=== PATIENT | male | born 1945 | race African-American/Black ===

== ENCOUNTER 2017-07-26 03:13 | Inpatient (IN) | payer MEDICAID, MEDICARE, OTHER ==
[~2017-07-26] VITALS: Ht 129.5 cm; Wt 64.9 kg
[2017-07-26 03:30] VITALS: BP 162/93
[2017-07-26] MEDS ORDERED: Thiamine HCl 100 MG in D5W 55 ML IVPB ONE (03:30)
[2017-07-26] MEDS ORDERED: Thiamine HCl 100mg/ml 2 ml Inj ONE (04:39)
[2017-07-26 04:42] LABS: BASOPHILS % (AUTO) 1.2 % (0.0-2.0); EOSINOPHILS % (AUTO) 2.6 % (0.0-3.0); HEMATOCRIT 43.9 % (42.0-52.0); HEMOGLOBIN 14.3 G/DL (14.2-18.0); MEAN CORPUSCULAR VOLUME 90 FL (80-99); NEUTROPHILS % (AUTO) 60.2 % (45.0-75.0); PLATELET COUNT 158 K/UL (150-450); RED BLOOD COUNT 4.87 M/UL (4.70-6.10); RED CELL DISTRIBUTION WIDTH 15.2 % (11.6-14.8); WHITE BLOOD COUNT 4.2 K/UL (4.8-10.8)
[2017-07-26 04:51] LABS: ANION GAP 14 mmol/L (5-15); BLOOD UREA NITROGEN 12 mg/dL (7-18); CALCIUM 9.2 MG/DL (8.5-10.1); CARBON DIOXIDE 22 MMOL/L (21-32); CHLORIDE 101 MMOL/L (98-107); CREATININE 0.8 MG/DL (0.55-1.30); POTASSIUM 3.6 MMOL/L (3.5-5.1); SODIUM 137 MMOL/L (136-145)
[2017-07-26 04:57] LABS: ALANINE AMINOTRANSFERASE 29 U/L (12-78); ALBUMIN 3.3 G/DL (3.4-5.0); ALBUMIN/GLOBULIN RATIO 0.6 (1.0-2.7); ALKALINE PHOSPHATASE 78 U/L (46-116); ASPARTATE AMINO TRANSFERASE 61 U/L (15-37); BILIRUBIN,TOTAL 0.6 MG/DL (0.2-1.0)
--- NOTE | 2017-07-26 05:54 | Emergency Room Report ---
History of Present Illness General Chief Complaint: Wound Recheck/Suture Removal Source: EMS Present Illness HPI Patient is a 72-year-old male who presented after increased pain to his buttock area. Patient gradual onset of symptoms. The patient reports having multiple he recent visit to the hospital. He states that he had been seen at [facility] yesterday. Patient denied any fever. He reports an increase pain to his left ischial area. The patient had prior history of decubitus ulcers. patient reports having some pain to the scrotal area. He denies any active bleeding. History is limited by patient's intoxication and poor cooperation Allergies: Coded Allergies: NO KNOWN DRUG ALLERGIES (Unverified Allergy, Unknown, 11/11/14) Patient History Past Medical History: see triage record Reviewed Nursing Documentation: PMH: Agreed, PSxH: Agreed Nursing Documentation-PMH Hx Hypertension: No Hx Pacemaker: No Hx Asthma: No Hx COPD: No Hx Diabetes: No Hx Cancer: No Hx Gastrointestinal Problems: No Hx Dialysis: No Hx Neurological Problems: No - inability of walking due to having no legs(pt didn't give information why) Hx Cerebrovascular Accident: No Hx Seizures: No Review of Systems All Other Systems: limited - by poor cooperation Physical Exam Vital Signs Date Time Temp Pulse Resp B/P (MAP) Pulse Ox O2 Delivery O2 Flow Rate FiO2 07/26/17 03:07 96.3 130 16 162/93 95 Room Air Sp02 EP Interpretation: reviewed, normal General Appearance: normal inspection, well appearing, no apparent distress, alert, non-toxic, Chronically Ill Head: atraumatic ENT: normal ENT inspection, hearing grossly normal, normal voice Neck: normal inspection, full range of motion, supple, no bony tend Respiratory: normal inspection, lungs clear, normal breath sounds, no respiratory distress, no retraction, no wheezing Cardiovascular #1: regular rate, rhythm, edema - scrotum Gastrointestinal: normal inspection, normal bowel sounds, non tender, soft, no guarding, no hernia Genitourinary: no CVA tenderness Musculoskeletal: normal inspection, back normal Neurologic: normal inspection, alert, responsive, 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 Sacral decubitus ulcer stage 11 without erythema or exudate Medical Decision Making Diagnostic Impression: Primary Impression: Scrotal edema Additional Impressions: Alcohol abuse Decubitus skin ulcer ER Course The patient presented for wound check. Have some evidence of scrotal edema. Differential diagnosis included was not limited to malnutrition, cirrhosis, renal failure among other. Because of complexity of patient's case laboratory testing and imaging studies were ordered. The patient was noted to have elevated blood alcohol level. He appears to be awake and alert. Patient was given thiamine IV. A scrotal edema appears to be related to chronic liver disease. Patient was noted to have a markedly edema. The patient is been having some difficulty taking care of his wounds due to bilateral amputations. Dr. Santi Barajas was contacted for inpatient management. The patient will likely need diuretics and urology consult Labs Test 07/26/17 04:27 White Blood Count 4.2 K/UL (4.8-10.8) Red Blood Count 4.87 M/UL (4.70-6.10) Hemoglobin 14.3 G/DL (14.2-18.0) Hematocrit 43.9 % (42.0-52.0) Mean Corpuscular Volume 90 FL (80-99) Mean Corpuscular Hemoglobin 29.3 PG (27.0-31.0) Mean Corpuscular Hemoglobin Concent 32.5 G/DL (32.0-36.0) Red Cell Distribution Width 15.2 % (11.6-14.8) Platelet Count 158 K/UL (150-450) Mean Platelet Volume 8.3 FL (6.5-10.1) Neutrophils (%) (Auto) 60.2 % (45.0-75.0) Lymphocytes (%) (Auto) 28.0 % (20.0-45.0) Monocytes (%) (Auto) 8.0 % (1.0-10.0) Eosinophils (%) (Auto) 2.6 % (0.0-3.0) Basophils (%) (Auto) 1.2 % (0.0-2.0) Sodium Level 137 MMOL/L (136-145) Potassium Level 3.6 MMOL/L (3.5-5.1) Chloride Level 101 MMOL/L (98-107) Carbon Dioxide Level 22 MMOL/L (21-32) Anion Gap 14 mmol/L (5-15) Blood Urea Nitrogen 12 mg/dL (7-18) Creatinine 0.8 MG/DL (0.55-1.30) Estimat Glomerular Filtration Rate > 60 mL/min (>60) Glucose Level 97 MG/DL (74-106) Calcium Level 9.2 MG/DL (8.5-10.1) Total Bilirubin 0.6 MG/DL (0.2-1.0) Aspartate Amino Transf (AST/SGOT) 61 U/L (15-37) Alanine Aminotransferase (ALT/SGPT) 29 U/L (12-78) Alkaline Phosphatase 78 U/L (46-116) Ammonia 30 umol/L (11-32) Total Protein 8.9 G/DL (6.4-8.2) Albumin 3.3 G/DL (3.4-5.0) Globulin 5.6 g/dL Albumin/Globulin Ratio 0.6 (1.0-2.7) Serum Alcohol 78 mg/dL Last Vital Signs Date Time Temp Pulse Resp B/P (MAP) Pulse Ox O2 Delivery O2 Flow Rate FiO2 07/26/17 03:30 96.3 130 16 162/93 95 Room Air Status: unchanged Disposition: ADMITTED INPATIENT Condition: Stable Referrals: NOT CHOSEN IPA/,REFERRING (PCP) Rupesh Taveras Jul 26, 2017 05:54
[2017-07-26] MEDS ORDERED: cefTRIAXone 1 GM in NS 55 ML IVPB ONE (06:45)
[2017-07-26] MEDS ORDERED: Morphine Sulfate 2mg/ml Inj IVP PRN (07:00)
[2017-07-26] MEDS ORDERED: Miralax 17gm pkt ORAL PRN (07:00)
[2017-07-26] MEDS ORDERED: Mylanta II UD 30ml ORAL PRN (07:00)
[2017-07-26] MEDS ORDERED: LORazepam Inj 2mg/ml 1ml IV PRN (07:00)
[2017-07-26 07:20] VITALS: BP 114/73
[2017-07-26 10:17] VITALS: BP 121/71
--- NOTE | 2017-07-26 10:37 | Consultation ---
History of Present Illness General Chief Complaint: Wound Recheck/Suture Removal Present Illness HPI 72-year-old male with hx of eoth abuse, wheel chair bound, decubiti ulcers, poor historian presented to ER with CC of increased pain to his buttock area wtih onset of symptoms. He reports an increase pain to his left ischial area. He reports having some pain to the scrotal area. Pt was found to be intoxicated with ETOH. He is admitted for ETOH intoxication and increasing weakness and worsening decubiti ulcers. Allergies: Coded Allergies: NO KNOWN DRUG ALLERGIES (Unverified Allergy, Unknown, 11/11/14) Medication History Scheduled Carvedilol (Coreg), 3.125 MG ORAL EVERY 12 HOURS Divalproex Sodium (Divalproex Sodium), 750 MG ORAL EVERY 12 HOURS Furosemide* (Lasix*), 40 MG ORAL DAILY Lisinopril (Lisinopril*), 5 MG ORAL DAILY Risperidone* (Risperdal*), 2 MG ORAL BID Risperidone* (Risperdal*), 3 MG ORAL BID Valproic Acid (Valproic Acid), 750 MG PO EVERY 12 HOURS Scheduled PRN Lorazepam* (Ativan*), 2 MG ORAL Q6H PRN Patient History Healthcare decision maker Resuscitation status Advanced Directive on File Past Medical/Surgical History Past Medical/Surgical History: (1) Decubitus ulcer of sacral region, stage 1 (2) Cardiomyopathy (3) Pain (4) S/P AKA (above knee amputation) bilateral Review of Systems All Other Systems: negative except mentioned in HPI Physical Exam General Appearance: WD/WN Lines, tubes and drains: peripheral HEENT: normocephalic, atraumatic Neck: non-tender, normal alignment Respiratory/Chest: chest wall non-tender, lungs clear Cardiovascular/Chest: normal peripheral pulses, normal rate Abdomen: normal bowel sounds, non tender Genitourinary/Rectal: normal genital exam, normal rectal exam Extremities: normal range of motion, non-tender Skin Exam: normal pigmentation Neurologic: other - above knee amputation Last 24 Hour Vital Signs Date Time Temp Pulse Resp B/P (MAP) Pulse Ox O2 Delivery O2 Flow Rate FiO2 07/26/17 10:18 97.9 110 16 121/71 96 Room Air 07/26/17 10:17 97.9 110 16 121/71 96 Room Air 07/26/17 09:05 98.0 2/2/18 07:20 98.0 98 16 114/73 96 Room Air 07/26/17 03:30 96.3 130 16 162/93 95 Room Air 07/26/17 03:07 96.3 130 16 162/93 95 Room Air Laboratory Tests Test 07/26/17 04:27 White Blood Count 4.2 K/UL (4.8-10.8) L Red Blood Count 4.87 M/UL (4.70-6.10) Hemoglobin 14.3 G/DL (14.2-18.0) Hematocrit 43.9 % (42.0-52.0) Mean Corpuscular Volume 90 FL (80-99) Mean Corpuscular Hemoglobin 29.3 PG (27.0-31.0) Mean Corpuscular Hemoglobin Concent 32.5 G/DL (32.0-36.0) Red Cell Distribution Width 15.2 % (11.6-14.8) H Platelet Count 158 K/UL (150-450) Mean Platelet Volume 8.3 FL (6.5-10.1) Neutrophils (%) (Auto) 60.2 % (45.0-75.0) Lymphocytes (%) (Auto) 28.0 % (20.0-45.0) Monocytes (%) (Auto) 8.0 % (1.0-10.0) Eosinophils (%) (Auto) 2.6 % (0.0-3.0) Basophils (%) (Auto) 1.2 % (0.0-2.0) Sodium Level 137 MMOL/L (136-145) Potassium Level 3.6 MMOL/L (3.5-5.1) Chloride Level 101 MMOL/L (98-107) Carbon Dioxide Level 22 MMOL/L (21-32) Anion Gap 14 mmol/L (5-15) Blood Urea Nitrogen 12 mg/dL (7-18) Creatinine 0.8 MG/DL (0.55-1.30) Estimat Glomerular Filtration Rate > 60 mL/min (>60) Glucose Level 97 MG/DL (74-106) Calcium Level 9.2 MG/DL (8.5-10.1) Total Bilirubin 0.6 MG/DL (0.2-1.0) Aspartate Amino Transf (AST/SGOT) 61 U/L (15-37) H Alanine Aminotransferase (ALT/SGPT) 29 U/L (12-78) Alkaline Phosphatase 78 U/L (46-116) Ammonia 30 umol/L (11-32) Total Protein 8.9 G/DL (6.4-8.2) H Albumin 3.3 G/DL (3.4-5.0) L Globulin 5.6 g/dL Albumin/Globulin Ratio 0.6 (1.0-2.7) L Serum Alcohol 78 mg/dL Height (Feet): 4 Height (Inches): 3.00 Weight (Pounds): 143 Medications Current Medications Medications (Trade) Dose Ordered Sig/Stevan Route PRN Reason Start Time Stop Time Status Last Admin Dose Admin Acetaminophen (Tylenol) 650 mg Q4H PRN ORAL fever 07/26/17 07:00 08/25/17 06:59 07/26/17 08:02 Al Hydroxide/Mg Hydroxide (Mylanta II) 30 ml Q6H PRN ORAL dyspepsia 07/26/17 07:00 08/25/17 06:59 Dextrose (Dextrose 50%) STAT PRN IV Hypoglycemia 07/26/17 07:00 08/25/17 06:59 Lorazepam (Ativan 2mg/ml 1ml) 0.5 mg Q4H PRN IV For Anxiety 07/26/17 07:00 08/02/17 06:59 Morphine Sulfate (Morphine Sulfate) 1 mg EVERY 4 HOURS PRN IVP For Pain 07/26/17 07:00 08/02/17 06:59 Ondansetron HCl (Zofran) 4 mg Q6H PRN IVP Nausea & Vomiting 07/26/17 07:00 08/25/17 06:59 Polyethylene Glycol (Miralax) 17 gm HSPRN PRN ORAL Constipation 07/26/17 07:00 08/25/17 06:59 Zolpidem Tartrate (Ambien) 5 mg HSPRN PRN ORAL Insomnia 07/26/17 07:00 08/02/17 06:59 Assessment/Plan Problem List: (1) Acute encephalopathy ICD Codes: G93.40 - Encephalopathy, unspecified SNOMED: 4481170 (2) Decubitus skin ulcer ICD Codes: L89.90 - Pressure ulcer of unspecified site, unspecified stage SNOMED: 127672389 (3) Alcohol abuse ICD Codes: F10.10 - Alcohol abuse, uncomplicated SNOMED: 82977363, 429793808, 582698763 (4) Scrotal edema ICD Codes: N50.89 - Other specified disorders of the male genital organs SNOMED: 35382094, 002148654, 041225130 Assessment/Plan neuro evaluatin check echo check liver function check ammonia GI evaluation RAJANI JACOBS Jul 26, 2017 10:37
[2017-07-26 12:15] VITALS: BP 100/58
[2017-07-26] MEDS ORDERED: Promethazine/Codeine 5ml UD ORAL PRN (12:45)
[2017-07-26 16:00] VITALS: BP 109/77
--- NOTE | 2017-07-26 19:14 | History & Physical ---
History and Physical History & Physicial Dictated for Int Med-Dr Barajas no. [id number] AVINASH ROMEO Jul 26, 2017 19:14
[2017-07-26 20:00] VITALS: BP 115/70
[2017-07-26] MEDS: Promethazine/DM 6.25mg/5ml ORAL PRN (20:38)
[2017-07-27] VITALS: BP 109/63
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
[2017-07-27] MEDS: Promethazine/DM 6.25mg/5ml ORAL PRN ×2 (03:50→10:21)
[2017-07-27 04:00] VITALS: BP 113/77
[2017-07-27 08:15] VITALS: BP 123/70
--- NOTE | 2017-07-27 08:50 | Pulmonology Progress Note ---
Assessment/Plan Assessment/Plan ASSESSMENT acute toxic metabolic encephalopathy ( probably due to bipolar disorder exacerbation and ETOH intoxication) bipolar disorder ETOH abuse scrotal edema due to right hydrocele cardiomyopathy SHF severe pulmonary HTN sacral decubitus ulcer PVD bilateral AKA obesity PLAN OF CARE MS floor Psych eval appreciated per psych conclusion patient lacks capacity to leave or refuse medications ECHO with EF 30-35% and RVSP of 60 Cardio eval for medical management of SHF check CXR and pro BNP Testicular US revealed right hydrocele, small bilateral varicoceles Urine tox screen positive for opiates serum alcohol -78 add Thiamine, Folic acid pain management wound nurse eval and wound care as per wound nurse eval DVT prophylaxis case discussed and evaluated by supervising physician Subjective Allergies: Coded Allergies: NO KNOWN DRUG ALLERGIES (Unverified Allergy, Unknown, 11/11/14) Subjective patient altered and unable to answer any questions behavior bizarre and inappropriate Objective Last 24 Hour Vital Signs Date Time Temp Pulse Resp B/P (MAP) Pulse Ox O2 Delivery O2 Flow Rate FiO2 07/27/17 08:15 97.9 103 18 123/70 97 Room Air 2.0 07/27/17 04:00 97.0 104 20 113/77 99 Room Air 07/27/17 00:00 96.1 100 20 109/63 92 Room Air 07/26/17 20:00 97.0 104 19 115/70 99 Room Air 07/26/17 16:00 98.3 114 20 109/77 99 07/26/17 12:15 98.4 112 21 100/58 97 Room Air 07/26/17 10:18 97.9 110 16 121/71 96 Room Air 07/26/17 10:17 97.9 110 16 121/71 96 Room Air 07/26/17 09:05 98.0 Intake and Output 07/26/17 07/27/17 19:00 07:00 Intake Total 295 ml Balance 295 ml Intake Oral 240 ml IV Total 55 ml # Voids 1 1 General Appearance: other - anxious, not able to answer questions, or provide inappropriate responses HEENT: normocephalic, atraumatic, anicteric Respiratory/Chest: lungs clear, no respiratory distress, no accessory muscle use Cardiovascular: normal rate Abdomen: normal bowel sounds, soft, non tender Extremities: other - bilateral AKA Neurologic/Psychiatric: abnormal gait, alert - confused Microbiology Date/Time Source Procedure Growth Status 07/26/17 12:00 Wound Gram Stain - Final Resulted 07/26/17 12:00 Wound Wound Culture Pending Resulted 07/26/17 12:00 Wound Gram Stain - Final Resulted 07/26/17 12:00 Wound Wound Culture Pending Resulted Current Medications Medications (Trade) Dose Ordered Sig/Stevan Route PRN Reason Start Time Stop Time Status Last Admin Dose Admin Acetaminophen (Tylenol) 650 mg Q4H PRN ORAL Mild Pain/Temp > 100.5 07/26/17 15:00 08/25/17 14:59 07/27/17 00:48 Al Hydroxide/Mg Hydroxide (Mylanta II) 30 ml Q6H PRN ORAL dyspepsia 07/26/17 07:00 08/25/17 06:59 Dextrose (Dextrose 50%) STAT PRN IV Hypoglycemia 07/26/17 07:00 08/25/17 06:59 Lorazepam (Ativan 2mg/ml 1ml) 0.5 mg Q4H PRN IV For Anxiety 07/26/17 07:00 08/02/17 06:59 Morphine Sulfate (Morphine Sulfate) 1 mg EVERY 4 HOURS PRN IVP For Pain 07/26/17 07:00 08/02/17 06:59 Ondansetron HCl (Zofran) 4 mg Q6H PRN IVP Nausea & Vomiting 07/26/17 07:00 08/25/17 06:59 Polyethylene Glycol (Miralax) 17 gm HSPRN PRN ORAL Constipation 07/26/17 07:00 08/25/17 06:59 Promethazine HCl/ Dextromethorphan (Phenergan DM) 6.25 mg Q6H PRN ORAL For Cough 07/26/17 19:30 08/25/17 19:29 07/27/17 03:50 Zolpidem Tartrate (Ambien) 5 mg HSPRN PRN ORAL Insomnia 07/26/17 07:00 08/02/17 06:59 Megan Delgado NP (Vanchtein) Jul 27, 2017 08:50
[2017-07-27] MEDS: Thiamine 100mg tab ORAL SCH (09:00)
--- NOTE | 2017-07-27 11:11 | Diagnostic Imaging Report ---
. Indication: Shortness of breath Technique: One view of the chest Comparison: none Findings: Heart is enlarged. There is a right-sided pleural effusion. There is bilateral interstitial and airspace edema. There is right apical pleural scarring Impression: Evidence of congestive heart failure, with cardiomegaly, bilateral interstitial and airspace edema, right-sided pleural effusion
[2017-07-27 12:00] VITALS: BP 142/71
--- NOTE | 2017-07-27 12:06 | Diagnostic Imaging Report ---
Indications: Pain and swelling Technique: Grayscale and duplex images of the scrotum Comparison: none Findings:The right testicle measures 3.3cm in length. It demonstrates normal echogenicity. Normal Doppler flow. Normal epididymis. There is a large hydrocele. There is a small varicocele The left testicle measures 3.2 cm in length. It demonstrates normal echogenicity and normal Doppler flow. Normal epididymis. There is a small varicocele Impression: Right hydrocele, small bilateral varicoceles No acute abnormality
[2017-07-27] MEDS ORDERED: Haloperidol Decanoate 50mg Inj IM ONE (14:00)
--- NOTE | 2017-07-27 14:49 | Internal Med Progress Note ---
Subjective Date of Service: Jul 27, 2017 Physician Name Avinash Romeo Attending Physician Santi Barajas MD Current Medications Medications (Trade) Dose Ordered Sig/Stevan Route PRN Reason Start Time Stop Time Status Last Admin Dose Admin Acetaminophen (Tylenol) 650 mg Q4H PRN ORAL Mild Pain/Temp > 100.5 07/26/17 15:00 08/25/17 14:59 07/27/17 00:48 Al Hydroxide/Mg Hydroxide (Mylanta II) 30 ml Q6H PRN ORAL dyspepsia 07/26/17 07:00 08/25/17 06:59 Dextrose (Dextrose 50%) STAT PRN IV Hypoglycemia 07/26/17 07:00 08/25/17 06:59 Folic Acid (Folate) 1 mg DAILY ORAL 07/27/17 09:00 08/26/17 08:59 Haloperidol Lactate (Haldol) 10 mg Q6H PRN IM Agitation 07/27/17 13:30 08/26/17 13:29 Lorazepam (Ativan 2mg/ml 1ml) 0.5 mg Q4H PRN IV For Anxiety 07/26/17 07:00 08/02/17 06:59 Morphine Sulfate (Morphine Sulfate) 1 mg EVERY 4 HOURS PRN IVP For Pain 07/26/17 07:00 08/02/17 06:59 Ondansetron HCl (Zofran) 4 mg Q6H PRN IVP Nausea & Vomiting 07/26/17 07:00 08/25/17 06:59 Polyethylene Glycol (Miralax) 17 gm HSPRN PRN ORAL Constipation 07/26/17 07:00 08/25/17 06:59 Promethazine HCl/ Dextromethorphan (Phenergan DM) 6.25 mg Q6H PRN ORAL For Cough 07/26/17 19:30 08/25/17 19:29 07/27/17 10:21 Thiamine HCl (Vitamin B1) 100 mg DAILY ORAL 07/27/17 09:00 08/26/17 08:59 Zolpidem Tartrate (Ambien) 5 mg HSPRN PRN ORAL Insomnia 07/26/17 07:00 08/02/17 06:59 Allergies: Coded Allergies: NO KNOWN DRUG ALLERGIES (Unverified Allergy, Unknown, 11/11/14) ROS Limited/Unobtainable: No Constitutional: Reports: no symptoms HEENT: Reports: no symptoms Cardiovascular: Reports: no symptoms Respiratory: Reports: no symptoms Gastrointestinal/Abdominal: Reports: no symptoms Genitourinary: Reports: no symptoms Neurologic/Psychiatric: Reports: no symptoms Subjective 72 YO M admitted with alcohol abuse and decubitus ulcer. Cover for Int Med-Dr Barajas. Agitated this am Objective Last Vital Signs Date Time Temp Pulse Resp B/P (MAP) Pulse Ox O2 Delivery O2 Flow Rate FiO2 07/27/17 12:00 98.6 93 17 142/71 96 Room Air 07/27/17 08:15 2.0 General Appearance: WD/WN, no apparent distress, alert EENT: PERRL/EOMI, normal ENT inspection Neck: non-tender, normal alignment, supple, normal inspection Cardiovascular: normal peripheral pulses, normal rate, regular rhythm, no gallop/murmur, no JVD Respiratory/Chest: chest wall non-tender, lungs clear, normal breath sounds, no respiratory distress, no accessory muscle use Abdomen: normal bowel sounds, non tender, soft, no organomegaly, no mass Genitourinary/Rectal: other - scrotal swelling right Extremities: normal range of motion 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, no motor/sensory deficits Skin: normal pigmentation, warm/dry Laboratory Tests Test 07/27/17 02:50 Urine Opiates Screen Positive (NEGATIVE) H Urine Barbiturates Screen Negative (NEGATIVE) Phencyclidine (PCP) Screen Negative (NEGATIVE) Urine Amphetamines Screen Negative (NEGATIVE) Urine Benzodiazepines Screen Negative (NEGATIVE) Urine Cocaine Screen Negative (NEGATIVE) Urine Marijuana (THC) Screen Negative (NEGATIVE) Microbiology Date/Time Source Procedure Growth Status 07/26/17 12:00 Wound Gram Stain - Final Resulted 07/26/17 12:00 Wound Culture - Preliminary Gram Negative Sreekanth Resulted 07/26/17 12:00 Wound Gram Stain - Final Resulted 07/26/17 12:00 Wound Wound Culture Pending Resulted 07/26/17 04:27 Nasal Nares MRSA Culture - Final NO METHICILLIN RESISTANT STAPH AUREUS... Complete 07/26/17 04:27 Rectum VRE Culture - Final Enterococcus Faecalis - Vre Complete Intake and Output 07/26/17 07/27/17 19:00 07:00 Intake Total 295 ml Balance 295 ml Intake Oral 240 ml IV Total 55 ml # Voids 1 1 Assessment/Plan Problem List: (1) Agitation Assessment & Plan: See psych note. (2) Right hydrocele Assessment & Plan: See scrotal ultrasound (3) Scrotal edema (4) Alcohol abuse Assessment & Plan: See psych eval (5) Decubitus skin ulcer Assessment & Plan: Wound care Status: progressing Assessment/Plan Discharge planning AVINASH ROMEO Jul 27, 2017 14:49
[2017-07-27] MEDS: Haloperidol 5mg/ml Inj IM PRN (15:42)
[2017-07-27 16:04] VITALS: BP 113/79
--- NOTE | 2017-07-27 19:51 | General Progress Note ---
Assessment/Plan Status: not improved, unchanged Assessment/Plan bipolar d/o lacks capacity to leave or refuse meds Subjective Date patient seen: Jul 27, 2017 Neurologic/Psychiatric: Reports: anxiety, depressed Allergies: Coded Allergies: NO KNOWN DRUG ALLERGIES (Unverified Allergy, Unknown, 11/11/14) Objective Last 24 Hour Vital Signs Date Time Temp Pulse Resp B/P (MAP) Pulse Ox O2 Delivery O2 Flow Rate FiO2 07/27/17 16:04 97.6 90 18 113/79 99 Room Air 07/27/17 12:00 98.6 93 17 142/71 96 Room Air 07/27/17 08:15 97.9 103 18 123/70 97 Room Air 2.0 07/27/17 04:00 97.0 104 20 113/77 99 Room Air 07/27/17 00:00 96.1 100 20 109/63 92 Room Air 07/26/17 20:00 97.0 104 19 115/70 99 Room Air Intake and Output 07/26/17 07/27/17 19:00 07:00 Intake Total 295 ml Balance 295 ml Intake Oral 240 ml IV Total 55 ml # Voids 1 1 Laboratory Tests 07/27/17 02:50: Urine Opiates Screen PositiveH, Urine Barbiturates Screen Negative, Phencyclidine (PCP) Screen Negative, Urine Amphetamines Screen Negative, Urine Benzodiazepines Screen Negative, Urine Cocaine Screen Negative, Urine Marijuana (THC) Screen Negative Height (Feet): 4 Height (Inches): 3.00 Weight (Pounds): 143 General Appearance: no apparent distress, alert, agitated, combative Evelia Vail M.D. Jul 27, 2017 19:50
[2017-07-27 20:00] VITALS: BP 120/84
[2017-07-28] VITALS: BP 121/79
[2017-07-28 04:00] VITALS: BP 113/62
[2017-07-28] MEDS: Zolpidem 5mg tab ORAL PRN ×2 (05:34→21:18)
[2017-07-28 08:15] VITALS: BP 118/70
[2017-07-28 08:24] LABS: HEMATOCRIT 36.9 % (42.0-52.0); HEMOGLOBIN 12.2 G/DL (14.2-18.0); MEAN CORPUSCULAR VOLUME 90 FL (80-99); PLATELET COUNT 126 K/UL (150-450); RED BLOOD COUNT 4.11 M/UL (4.70-6.10); RED CELL DISTRIBUTION WIDTH 15.7 % (11.6-14.8); WHITE BLOOD COUNT 3.3 K/UL (4.8-10.8)
[2017-07-28 08:32] LABS: ANION GAP 11 mmol/L (5-15); BLOOD UREA NITROGEN 10 mg/dL (7-18); CALCIUM 8.3 MG/DL (8.5-10.1); CARBON DIOXIDE 22 MMOL/L (21-32); CHLORIDE 106 MMOL/L (98-107); CREATININE 0.7 MG/DL (0.55-1.30); POTASSIUM 3.2 MMOL/L (3.5-5.1); SODIUM 139 MMOL/L (136-145)
[2017-07-28] MEDS ORDERED: Lisinopril 2.5mg tab ORAL SCH (09:00)
[2017-07-28] MEDS: Thiamine 100mg tab ORAL SCH (09:49)
[2017-07-28 12:15] VITALS: BP 130/73
--- NOTE | 2017-07-28 12:51 | Pulmonology Progress Note ---
Assessment/Plan Assessment/Plan ASSESSMENT acute toxic metabolic encephalopathy ( probably due to bipolar disorder exacerbation and ETOH intoxication) bipolar disorder ETOH abuse scrotal edema due to right hydrocele cardiomyopathy SHF severe pulmonary HTN sacral decubitus ulcer PVD bilateral AKA obesity PLAN OF CARE MS floor Psych eval appreciated per psych conclusion patient lacks capacity to leave or refuse medications ECHO with EF 30-35% and RVSP of 60 Cardio eval appreciated started on medical management of SHF with diuretic, BB and OLGA check CXR and pro BNP Testicular US revealed right hydrocele, small bilateral varicoceles Urine tox screen positive for opiates serum alcohol -78 added Thiamine, Folic acid pain management wound nurse eval and wound care as per wound nurse eval- patient declined DVT prophylaxis replace K case discussed and evaluated by supervising physician Subjective Allergies: Coded Allergies: NO KNOWN DRUG ALLERGIES (Unverified Allergy, Unknown, 11/11/14) Subjective behavior better controlled with optimized psyc medications regimen Objective Last 24 Hour Vital Signs Date Time Temp Pulse Resp B/P (MAP) Pulse Ox O2 Delivery O2 Flow Rate FiO2 07/28/17 12:15 97.6 108 20 130/73 99 Room Air 07/28/17 09:49 118/70 07/28/17 08:15 97.9 106 21 118/70 97 Room Air 07/28/17 04:00 97.1 111 20 113/62 94 07/28/17 00:00 97.6 89 21 121/79 98 07/27/17 20:00 97.8 108 21 120/84 94 07/27/17 16:04 97.6 90 18 113/79 99 Room Air Intake and Output 07/27/17 07/28/17 19:00 07:00 Intake Total 960 ml Output Total 800 ml Balance 160 ml Intake Oral 960 ml Output Urine Total 800 ml # Voids 3 2 # Bowel Movements 1 Objective General Appearance: more calm, not able to answer questions, or provide inappropriate responses HEENT: normocephalic, atraumatic, anicteric Respiratory/Chest: lungs clear, no respiratory distress, no accessory muscle use Cardiovascular: normal rate Abdomen: normal bowel sounds, soft, non tender Extremities: bilateral AKA Neurologic/Psychiatric: abnormal gait, alert - confused Microbiology Date/Time Source Procedure Growth Status 07/26/17 12:00 Wound Gram Stain - Final Resulted 07/26/17 12:00 Wound Culture - Preliminary Acinetobacter Baumannii Complx Gram Negative Bacillus 2 Diphtheroids Resulted 07/26/17 12:00 Wound Gram Stain - Final Resulted 07/26/17 12:00 Wound Culture - Preliminary Gram Negative Bacillus 1 Gram Positive Cocci Diphtheroids Resulted 07/26/17 04:27 Nasal Nares MRSA Culture - Final NO METHICILLIN RESISTANT STAPH AUREUS... Complete 07/26/17 04:27 Rectum VRE Culture - Final Enterococcus Faecalis - Vre Complete Laboratory Tests 07/28/17 06:21: White Blood Count 3.3L, Red Blood Count 4.11L, Hemoglobin 12.2L, Hematocrit 36.9L, Mean Corpuscular Volume 90, Mean Corpuscular Hemoglobin 29.6, Mean Corpuscular Hemoglobin Concent 32.9, Red Cell Distribution Width 15.7H, Platelet Count 126L, Mean Platelet Volume 8.0, Neutrophils (%) (Auto) , Lymphocytes (%) (Auto) , Monocytes (%) (Auto) , Eosinophils (%) (Auto) , Basophils (%) (Auto) , Differential Total Cells Counted 100, Neutrophils % ( Manual) 62, Lymphocytes % (Manual) 27, Monocytes % (Manual) 9, Eosinophils % ( Manual) 2, Basophils % (Manual) 0, Band Neutrophils 0, Platelet Estimate DecreasedL, Platelet Morphology Normal, Red Blood Cell Morphology Normal, Anisocytosis 1+, Sodium Level 139, Potassium Level 3.2L, Chloride Level 106, Carbon Dioxide Level 22, Anion Gap 11, Blood Urea Nitrogen 10, Creatinine 0.7, Estimat Glomerular Filtration Rate > 60, Glucose Level 94, Calcium Level 8.3L Current Medications Medications (Trade) Dose Ordered Sig/Stevan Route PRN Reason Start Time Stop Time Status Last Admin Dose Admin Acetaminophen (Tylenol) 650 mg Q4H PRN ORAL Mild Pain/Temp > 100.5 07/26/17 15:00 08/25/17 14:59 07/28/17 11:09 Al Hydroxide/Mg Hydroxide (Mylanta II) 30 ml Q6H PRN ORAL dyspepsia 07/26/17 07:00 08/25/17 06:59 Carvedilol (Coreg) 3.125 mg EVERY 12 HOURS ORAL 07/28/17 21:00 08/27/17 20:59 Dextrose (Dextrose 50%) STAT PRN IV Hypoglycemia 07/26/17 07:00 08/25/17 06:59 Folic Acid (Folate) 1 mg DAILY ORAL 07/27/17 09:00 08/26/17 08:59 07/28/17 09:49 Furosemide (Lasix) 40 mg DAILY IV 07/28/17 09:00 08/27/17 08:59 Haloperidol Lactate (Haldol) 10 mg Q6H PRN IM Agitation 07/27/17 13:30 08/26/17 13:29 07/27/17 15:42 Lisinopril (Zestril) 2.5 mg DAILY ORAL 07/28/17 09:00 08/27/17 08:59 07/28/17 09:49 Lorazepam (Ativan 2mg/ml 1ml) 0.5 mg Q4H PRN IV For Anxiety 07/26/17 07:00 08/02/17 06:59 Morphine Sulfate (Morphine Sulfate) 1 mg EVERY 4 HOURS PRN IVP For Pain 07/26/17 07:00 08/02/17 06:59 Ondansetron HCl (Zofran) 4 mg Q6H PRN IVP Nausea & Vomiting 07/26/17 07:00 08/25/17 06:59 Polyethylene Glycol (Miralax) 17 gm HSPRN PRN ORAL Constipation 07/26/17 07:00 08/25/17 06:59 Promethazine HCl/ Dextromethorphan (Phenergan DM) 6.25 mg Q6H PRN ORAL For Cough 07/26/17 19:30 08/25/17 19:29 07/27/17 10:21 Thiamine HCl (Vitamin B1) 100 mg DAILY ORAL 07/27/17 09:00 08/26/17 08:59 07/28/17 09:49 Zolpidem Tartrate (Ambien) 5 mg HSPRN PRN ORAL Insomnia 07/26/17 07:00 08/02/17 06:59 07/28/17 05:34 [facility] center[facility] Perry NP Jul 28, 2017 12:51
[2017-07-28] MEDS: Morphine Sulfate 4mg/ml Inj IVP PRN (14:44)
[2017-07-28 15:55] VITALS: BP 130/68
--- NOTE | 2017-07-28 15:55 | Internal Med Progress Note ---
Subjective Date of Service: Jul 28, 2017 Physician Name BarraganGordon alexander Attending Physician Santi Barajas MD Current Medications Medications (Trade) Dose Ordered Sig/Stevan Route PRN Reason Start Time Stop Time Status Last Admin Dose Admin Acetaminophen (Tylenol) 650 mg Q4H PRN ORAL Mild Pain/Temp > 100.5 07/26/17 15:00 08/25/17 14:59 07/28/17 11:09 Al Hydroxide/Mg Hydroxide (Mylanta II) 30 ml Q6H PRN ORAL dyspepsia 07/26/17 07:00 08/25/17 06:59 Carvedilol (Coreg) 3.125 mg EVERY 12 HOURS ORAL 07/28/17 21:00 08/27/17 20:59 Dextrose (Dextrose 50%) STAT PRN IV Hypoglycemia 07/26/17 07:00 08/25/17 06:59 Folic Acid (Folate) 1 mg DAILY ORAL 07/27/17 09:00 08/26/17 08:59 07/28/17 09:49 Furosemide (Lasix) 40 mg DAILY IV 07/28/17 09:00 08/27/17 08:59 Haloperidol Lactate (Haldol) 10 mg Q6H PRN IM Agitation 07/27/17 13:30 08/26/17 13:29 07/27/17 15:42 Lisinopril (Zestril) 2.5 mg DAILY ORAL 07/28/17 09:00 08/27/17 08:59 07/28/17 09:49 Lorazepam (Ativan 2mg/ml 1ml) 0.5 mg Q4H PRN IV For Anxiety 07/26/17 07:00 08/02/17 06:59 Morphine Sulfate (Morphine Sulfate) 1 mg Q4H PRN IVP For Pain 07/28/17 14:45 08/04/17 14:44 07/28/17 14:44 Ondansetron HCl (Zofran) 4 mg Q6H PRN IVP Nausea & Vomiting 07/26/17 07:00 08/25/17 06:59 Polyethylene Glycol (Miralax) 17 gm HSPRN PRN ORAL Constipation 07/26/17 07:00 08/25/17 06:59 Promethazine HCl/ Dextromethorphan (Phenergan DM) 6.25 mg Q6H PRN ORAL For Cough 07/26/17 19:30 08/25/17 19:29 07/27/17 10:21 Thiamine HCl (Vitamin B1) 100 mg DAILY ORAL 07/27/17 09:00 08/26/17 08:59 07/28/17 09:49 Zolpidem Tartrate (Ambien) 5 mg HSPRN PRN ORAL Insomnia 07/26/17 07:00 08/02/17 06:59 07/28/17 05:34 Allergies: Coded Allergies: NO KNOWN DRUG ALLERGIES (Unverified Allergy, Unknown, 11/11/14) ROS Limited/Unobtainable: No Constitutional: Reports: no symptoms HEENT: Reports: no symptoms Cardiovascular: Reports: no symptoms Respiratory: Reports: no symptoms Gastrointestinal/Abdominal: Reports: no symptoms Genitourinary: Reports: no symptoms Neurologic/Psychiatric: Reports: no symptoms Subjective 72 YO M admitted with alcohol abuse and decubitus ulcer. Cover for Int Med-Dr Barajas. Agitated this am Objective Last Vital Signs Date Time Temp Pulse Resp B/P (MAP) Pulse Ox O2 Delivery O2 Flow Rate FiO2 07/28/17 12:15 97.6 108 20 130/73 99 Room Air 07/27/17 08:15 2.0 Laboratory Tests Test 07/28/17 06:21 White Blood Count 3.3 K/UL (4.8-10.8) L Red Blood Count 4.11 M/UL (4.70-6.10) L Hemoglobin 12.2 G/DL (14.2-18.0) L Hematocrit 36.9 % (42.0-52.0) L Mean Corpuscular Volume 90 FL (80-99) Mean Corpuscular Hemoglobin 29.6 PG (27.0-31.0) Mean Corpuscular Hemoglobin Concent 32.9 G/DL (32.0-36.0) Red Cell Distribution Width 15.7 % (11.6-14.8) H Platelet Count 126 K/UL (150-450) L Mean Platelet Volume 8.0 FL (6.5-10.1) Neutrophils (%) (Auto) % (45.0-75.0) Lymphocytes (%) (Auto) % (20.0-45.0) Monocytes (%) (Auto) % (1.0-10.0) Eosinophils (%) (Auto) % (0.0-3.0) Basophils (%) (Auto) % (0.0-2.0) Differential Total Cells Counted 100 Neutrophils % (Manual) 62 % (45-75) Lymphocytes % (Manual) 27 % (20-45) Monocytes % (Manual) 9 % (1-10) Eosinophils % (Manual) 2 % (0-3) Basophils % (Manual) 0 % (0-2) Band Neutrophils 0 % (0-8) Platelet Estimate Decreased L Platelet Morphology Normal Red Blood Cell Morphology Normal Anisocytosis 1+ Sodium Level 139 MMOL/L (136-145) Potassium Level 3.2 MMOL/L (3.5-5.1) L Chloride Level 106 MMOL/L (98-107) Carbon Dioxide Level 22 MMOL/L (21-32) Anion Gap 11 mmol/L (5-15) Blood Urea Nitrogen 10 mg/dL (7-18) Creatinine 0.7 MG/DL (0.55-1.30) Estimat Glomerular Filtration Rate > 60 mL/min (>60) Glucose Level 94 MG/DL (74-106) Calcium Level 8.3 MG/DL (8.5-10.1) L Microbiology Date/Time Source Procedure Growth Status 07/26/17 12:00 Wound Gram Stain - Final Resulted 07/26/17 12:00 Wound Culture - Preliminary Acinetobacter Baumannii Complx Gram Negative Bacillus 2 Diphtheroids Resulted 07/26/17 12:00 Wound Gram Stain - Final Resulted 07/26/17 12:00 Wound Culture - Preliminary Gram Negative Bacillus 1 Gram Positive Cocci Diphtheroids Resulted 07/26/17 04:27 Nasal Nares MRSA Culture - Final NO METHICILLIN RESISTANT STAPH AUREUS... Complete 07/26/17 04:27 Rectum VRE Culture - Final Enterococcus Faecalis - Vre Complete Intake and Output 07/27/17 07/28/17 19:00 07:00 Intake Total 960 ml Output Total 800 ml Balance 160 ml Intake Oral 960 ml Output Urine Total 800 ml # Voids 3 2 # Bowel Movements 1 Objective General Appearance: WD/WN, no apparent distress, alert EENT: PERRL/EOMI, normal ENT inspection Neck: non-tender, normal alignment, supple, normal inspection Cardiovascular: normal peripheral pulses, normal rate, regular rhythm, no gallop/murmur, no JVD Respiratory/Chest: chest wall non-tender, lungs clear, normal breath sounds, no respiratory distress, no accessory muscle use Abdomen: normal bowel sounds, non tender, soft, no organomegaly, no mass Genitourinary/Rectal: other - scrotal swelling right Extremities: Bilat above the knee amputation; normal range of motion Neurologic: extrusion manager 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 (2) Right hydrocele Assessment & Plan: See scrotal ultrasound (3) Scrotal edema (4) Alcohol abuse Assessment & Plan: See psych eval (5) Decubitus skin ulcer Assessment & Plan: Wound care (6) S/P AKA (above knee amputation) bilateral Assessment/Plan Discharge planning GORDON BARRAGAN Jul 28, 2017 15:55
--- NOTE | 2017-07-28 18:56 | Consultation ---
Consult Note Consult Note Cardiology for Dr. Moya Full consult dictated. TIM TATE Jul 28, 2017 18:56
--- NOTE | 2017-07-28 19:03 | Cardiology Progress Note ---
Assessment/Plan Problem List: (1) Scrotal edema (2) Alcohol abuse (3) Cardiomyopathy (4) S/P AKA (above knee amputation) bilateral Status Narrative Mr Crespo is sedated. Psych evaluation noted. Pt felt not to have capacity for decision-making. He has cardiomyopathy, w/ EF appx 30% and global hypokinesis. ? alcoholic cm and was in CHF on adm Assessment/Plan Will continue to titrate meds - coreg, lisinopril, and continue iv lasix. Supplement K and repeat labs in am Further evaluation for ? ischemic vs nonischemic cm will be considered when pt more stable. Subjective ROS Limited/Unobtainable: Yes Subjective Cardiology for Dr. Moya Events noted. Pt now sedated. Objective Last 24 Hour Vital Signs Date Time Temp Pulse Resp B/P (MAP) Pulse Ox O2 Delivery O2 Flow Rate FiO2 07/28/17 15:55 97.7 106 19 130/68 97 Room Air 07/28/17 12:15 97.6 108 20 130/73 99 Room Air 07/28/17 09:49 118/70 07/28/17 08:15 97.9 106 21 118/70 97 Room Air 07/28/17 04:00 97.1 111 20 113/62 94 07/28/17 00:00 97.6 89 21 121/79 98 07/27/17 20:00 97.8 108 21 120/84 94 General Appearance: no apparent distress, lethargic EENT: PERRL/EOMI Neck: no JVD Rhythm: NSR Cardiovascular: regular rhythm, tachycardia, gallop/S3 Respiratory/Chest: lungs clear Abdomen: non tender, soft Extremities: other - bilat AKA. Intake and Output 07/27/17 07/28/17 19:00 07:00 Intake Total 960 ml Output Total 800 ml Balance 160 ml Intake Oral 960 ml Output Urine Total 800 ml # Voids 3 2 # Bowel Movements 1 Laboratory Tests Test 07/28/17 06:21 White Blood Count 3.3 K/UL (4.8-10.8) L Red Blood Count 4.11 M/UL (4.70-6.10) L Hemoglobin 12.2 G/DL (14.2-18.0) L Hematocrit 36.9 % (42.0-52.0) L Mean Corpuscular Volume 90 FL (80-99) Mean Corpuscular Hemoglobin 29.6 PG (27.0-31.0) Mean Corpuscular Hemoglobin Concent 32.9 G/DL (32.0-36.0) Red Cell Distribution Width 15.7 % (11.6-14.8) H Platelet Count 126 K/UL (150-450) L Mean Platelet Volume 8.0 FL (6.5-10.1) Neutrophils (%) (Auto) % (45.0-75.0) Lymphocytes (%) (Auto) % (20.0-45.0) Monocytes (%) (Auto) % (1.0-10.0) Eosinophils (%) (Auto) % (0.0-3.0) Basophils (%) (Auto) % (0.0-2.0) Differential Total Cells Counted 100 Neutrophils % (Manual) 62 % (45-75) Lymphocytes % (Manual) 27 % (20-45) Monocytes % (Manual) 9 % (1-10) Eosinophils % (Manual) 2 % (0-3) Basophils % (Manual) 0 % (0-2) Band Neutrophils 0 % (0-8) Platelet Estimate Decreased L Platelet Morphology Normal Red Blood Cell Morphology Normal Anisocytosis 1+ Sodium Level 139 MMOL/L (136-145) Potassium Level 3.2 MMOL/L (3.5-5.1) L Chloride Level 106 MMOL/L (98-107) Carbon Dioxide Level 22 MMOL/L (21-32) Anion Gap 11 mmol/L (5-15) Blood Urea Nitrogen 10 mg/dL (7-18) Creatinine 0.7 MG/DL (0.55-1.30) Estimat Glomerular Filtration Rate > 60 mL/min (>60) Glucose Level 94 MG/DL (74-106) Calcium Level 8.3 MG/DL (8.5-10.1) L Microbiology Date/Time Source Procedure Growth Status 07/26/17 12:00 Wound Gram Stain - Final Resulted 07/26/17 12:00 Wound Culture - Preliminary Acinetobacter Baumannii Complx Gram Negative Bacillus 2 Diphtheroids Resulted 07/26/17 12:00 Wound Gram Stain - Final Resulted 07/26/17 12:00 Wound Culture - Preliminary Gram Negative Bacillus 1 Gram Positive Cocci Diphtheroids Resulted 07/26/17 04:27 Nasal Nares MRSA Culture - Final NO METHICILLIN RESISTANT STAPH AUREUS... Complete 07/26/17 04:27 Rectum VRE Culture - Final Enterococcus Faecalis - Vre Complete TIM TATE Jul 28, 2017 19:03
[2017-07-28 20:00] VITALS: BP 119/74
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
[2017-07-29] VITALS: BP 124/83
[2017-07-29] MEDS: Haloperidol 5mg/ml Inj IM PRN (00:45)
[2017-07-29 04:00] VITALS: BP 99/60
[2017-07-29 08:00] VITALS: BP_SYST 111; BP_SYST 127; BP_DIAS 67; BP_DIAS 77
--- NOTE | 2017-07-29 08:31 | Wound Care Consultation ---
Wound Assessment Wound Assessment #1: Wound Number: 1 Wound Present on Admission: Yes New Wound: No Status Change of Wound: No Wound Location Body Site Modif: mid Wound Location Body Site: other - sacrococcygeal Wound Type: pressure ulcer Rylan Test: Does not Rylan Pressure Ulcer Stage: III Wound Thickness: Full Thickness Wound Length: 6.5 Wound Width: 5.0 Wound Depth: 0.2 Percent of Wound [place]/Red: 90 Percent of Wound Bed Yellow/Wh: 10 Wound Drainage Description: Serosanguineous Wound Drainage Amount: Moderate Wound Drainage Odor: None/Absent Tissue Surrounding Wound: Macerated Wound General Appearance: Reddened, Draining Wound Assessment #2: Wound Number: 2 Wound Present on Admission: Yes New Wound: No Status Change of Wound: No Wound Location Body Site Modif: right Wound Location Body Site: ischial tuberosity Wound Type: scar Rylan Test: Does not Rylan Wound Thickness: Full Thickness Wound Length: 2.5 Wound Width: 3.5 Percent of Wound [place]/Red: 100 Wound Drainage Amount: None Wound Drainage Odor: None/Absent Tissue Surrounding Wound: Intact Wound General Appearance: Reddened Wound Assessment #3: Wound Number: 3 Wound Present on Admission: Yes New Wound: No Status Change of Wound: No Wound Location Body Site Modif: left Wound Location Body Site: ischial tuberosity Wound Type: pressure ulcer Rylan Test: Does not Rylan Pressure Ulcer Stage: Unstageable Wound Thickness: Full Thickness Wound Length: 1.5 Wound Width: 1.5 Wound Depth: utd Percent of Wound Bed Yellow/Wh: 100 Wound Drainage Amount: None Wound Drainage Odor: None/Absent Tissue Surrounding Wound: full thickness scar tissue Wound General Appearance: Asymptomatic Wound Assessment #4: Wound Number: 4 Wound Present on Admission: Yes New Wound: No Status Change of Wound: No Wound Location Body Site: perineal area Wound Type: erosion - full thickness Rylan Test: Does not Rylan Wound Thickness: Full Thickness Wound Length: 2.0 Wound Width: 1.5 Wound Depth: 0.1 Percent of Wound [place]/Red: 100 Wound Drainage Amount: None Wound Drainage Odor: None/Absent Tissue Surrounding Wound: Intact Wound General Appearance: Reddened Wound Comment #1 Sacrococcygeal stage III pressure ulcer extending to left and right buttocks #2 Right ischial tuberosity full thickness scar tissue #3 Left unstageable dry yellow scab with surrounding full thickness tissue #4 Perineal area scrotum full thickness erosion Recommendation -Local wound care per protocol -Keep clean and dry -Turn and reposition -Optimize nutrition -Offload both heels -Heel protector on both heels -Low air loss mattress -Assess and f/u accordingly for any changes TICO GO RN Jul 29, 2017 08:30
[2017-07-29] MEDS: Lisinopril 2.5mg tab ORAL SCH (09:28)
[2017-07-29] MEDS: Thiamine 100mg tab ORAL SCH (09:29)
--- NOTE | 2017-07-29 10:05 | Diagnostic Imaging Report ---
Indication: Shortness of breath Technique: One view of the chest Comparison: 07/27/2017 Findings: Bilateral interstitial and airspace edema persists, unchanged. Right pleural effusion persists, unchanged. The heart size is normal. Impression: Unchanged, over 2 days, findings as above.
--- NOTE | 2017-07-29 10:58 | Cardiology Report ---
APPROVED REPORT EXAM: Two-dimensional and M-mode echocardiogram with Doppler and color Doppler. INDICATION Left Ventricular Function M-Mode DIMENSIONS IVSd1.0 (0.7-1.1cm)Left Atrium (MM)4.1 (1.6-4.0cm) LVDd6.0 (3.5-5.6cm)Aortic Root3.5 (2.0-3.7cm) PWd0.9 (0.7-1.1cm)Aortic Cusp Exc.2.3 (1.5-2.0cm) LVDs4.7 (2.5-4.0cm) PWs1.7 cm Mild left ventricular enlargement. Global left ventricular hypokinesis. Left ventricular ejection fraction estimated to be 30-35 %. No evidence of left ventricular hypertrophy. No evidence of pericardial effusion. Mild bi-atrial enlargement. Right ventricular chamber sizes is within normal limits. Mild focal aortic valve sclerosis with adequate cusp excursion. Heavy thickened mitral valve leaflets with normal excursion. Heavy mitral annulus and aortic root calcification. Normal pulmonic valve structure. Normal tricuspid valve structure. IVC dilated at 2.6 cm without physiologic collapse, estimated RAP is 15 mmHg. A color flow and spectral Doppler study was performed and revealed: No aortic regurgitation. Mild mitral regurgitation. Left ventricular diastolic function could not be determined due to A-Fib. Moderate tricuspid regurgitation. Tricuspid systolic velocities suggests peak right ventricular systolic pressure of 60 mmHg, consistent with severe pulmonary hypertension. Mild pulmonic regurgitation present.
--- NOTE | 2017-07-29 11:06 | Internal Med Progress Note ---
Subjective Date of Service: Jul 29, 2017 Physician Name Romeo,Avinash Attending Physician Santi Barajas MD Current Medications Medications (Trade) Dose Ordered Sig/Stevan Route PRN Reason Start Time Stop Time Status Last Admin Dose Admin Acetaminophen (Tylenol) 650 mg Q4H PRN ORAL Mild Pain/Temp > 100.5 07/26/17 15:00 08/25/17 14:59 07/29/17 06:37 Al Hydroxide/Mg Hydroxide (Mylanta II) 30 ml Q6H PRN ORAL dyspepsia 07/26/17 07:00 08/25/17 06:59 Carvedilol (Coreg) 3.125 mg EVERY 12 HOURS ORAL 07/28/17 21:00 08/27/17 20:59 07/29/17 09:29 Dextrose (Dextrose 50%) STAT PRN IV Hypoglycemia 07/26/17 07:00 08/25/17 06:59 Folic Acid (Folate) 1 mg DAILY ORAL 07/27/17 09:00 08/26/17 08:59 07/29/17 09:29 Furosemide (Lasix) 40 mg DAILY IV 07/28/17 09:00 08/27/17 08:59 Haloperidol Lactate (Haldol) 10 mg Q6H PRN IM Agitation 07/27/17 13:30 08/26/17 13:29 07/29/17 00:45 Lisinopril (Zestril) 5 mg DAILY ORAL 07/29/17 09:00 08/28/17 08:59 07/29/17 09:28 Lorazepam (Ativan 2mg/ml 1ml) 0.5 mg Q4H PRN IV For Anxiety 07/26/17 07:00 08/02/17 06:59 Morphine Sulfate (Morphine Sulfate) 1 mg Q4H PRN IVP For Pain 07/28/17 14:45 08/04/17 14:44 07/28/17 14:44 Ondansetron HCl (Zofran) 4 mg Q6H PRN IVP Nausea & Vomiting 07/26/17 07:00 08/25/17 06:59 Polyethylene Glycol (Miralax) 17 gm HSPRN PRN ORAL Constipation 07/26/17 07:00 08/25/17 06:59 Promethazine HCl/ Dextromethorphan (Phenergan DM) 6.25 mg Q6H PRN ORAL For Cough 07/26/17 19:30 08/25/17 19:29 07/27/17 10:21 Thiamine HCl (Vitamin B1) 100 mg DAILY ORAL 07/27/17 09:00 08/26/17 08:59 07/29/17 09:29 Zolpidem Tartrate (Ambien) 5 mg HSPRN PRN ORAL Insomnia 07/26/17 07:00 08/02/17 06:59 07/28/17 21:18 Allergies: Coded Allergies: NO KNOWN DRUG ALLERGIES (Unverified Allergy, Unknown, 11/11/14) ROS Limited/Unobtainable: No Constitutional: Reports: no symptoms HEENT: Reports: no symptoms Cardiovascular: Reports: no symptoms Respiratory: Reports: no symptoms Gastrointestinal/Abdominal: Reports: no symptoms Genitourinary: Reports: no symptoms Neurologic/Psychiatric: Reports: no symptoms Subjective 72 YO M admitted with alcohol abuse and decubitus ulcer. Cover for Int Med-Dr Barajas. Less Agitated this am Objective Last Vital Signs Date Time Temp Pulse Resp B/P (MAP) Pulse Ox O2 Delivery O2 Flow Rate FiO2 07/29/17 09:29 96 111/77 07/29/17 08:00 97.1 20 95 07/28/17 15:55 Room Air 07/27/17 08:15 2.0 Microbiology Date/Time Source Procedure Growth Status 07/26/17 12:00 Wound Gram Stain - Final Resulted 07/26/17 12:00 Wound Culture - Preliminary Acinetobacter Baumannii Complx Citrobacter Freundii Diphtheroids Resulted 07/26/17 12:00 Wound Gram Stain - Final Resulted 07/26/17 12:00 Wound Culture - Preliminary Klebsiella Pneumoniae Staphylococcus Simulans Diphtheroids Resulted Intake and Output 07/28/17 07/29/17 19:00 07:00 Intake Total 960 ml Output Total 1000 ml 950 ml Balance -40 ml -950 ml Intake Oral 960 ml Output Urine Total 1000 ml 950 ml # Voids 3 # Bowel Movements 2 3 Objective General Appearance: WD/WN, no apparent distress, alert EENT: PERRL/EOMI, normal ENT inspection Neck: non-tender, normal alignment, supple, normal inspection Cardiovascular: normal peripheral pulses, normal rate, regular rhythm, no gallop/murmur, no JVD Respiratory/Chest: chest wall non-tender, lungs clear, normal breath sounds, no respiratory distress, no accessory muscle use Abdomen: normal bowel sounds, non tender, soft, no organomegaly, no mass Genitourinary/Rectal: other - scrotal swelling right Extremities: Bilat above the knee amputation; normal range of motion Neurologic: shipping support 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 (2) Right hydrocele Assessment & Plan: See scrotal ultrasound (3) Scrotal edema Assessment & Plan: Right Hydroco[place]. Await urology consult. (4) Alcohol abuse Assessment & Plan: See psych eval (5) Decubitus skin ulcer Assessment & Plan: Wound care (6) S/P AKA (above knee amputation) bilateral Assessment/Plan Discharge planning: SNF vs board and care AVINASH ROMEO Jul 29, 2017 11:06
[2017-07-29 12:00] VITALS: BP 108/70
--- NOTE | 2017-07-29 14:42 | General Progress Note ---
Assessment/Plan Status: stable, progressing Assessment/Plan bipolar d/o lacks capacity to leave or refuse meds risperdal depakote Subjective Date patient seen: Jul 29, 2017 Neurologic/Psychiatric: Reports: anxiety, depressed, emotional problems Allergies: Coded Allergies: NO KNOWN DRUG ALLERGIES (Unverified Allergy, Unknown, 11/11/14) Objective Last 24 Hour Vital Signs Date Time Temp Pulse Resp B/P (MAP) Pulse Ox O2 Delivery O2 Flow Rate FiO2 07/29/17 13:35 97.1 07/29/17 12:00 96.7 97 20 108/70 92 07/29/17 09:29 96 111/77 07/29/17 09:28 111/77 07/29/17 08:00 97.1 96 20 111/77 95 07/29/17 04:00 97.6 106 21 99/60 94 07/29/17 00:00 97.0 104 21 124/83 98 07/28/17 21:18 104 119/74 07/28/17 20:00 97.0 104 22 119/74 98 07/28/17 15:55 97.7 106 19 130/68 97 Room Air Intake and Output 07/28/17 07/29/17 19:00 07:00 Intake Total 960 ml Output Total 1000 ml 950 ml Balance -40 ml -950 ml Intake Oral 960 ml Output Urine Total 1000 ml 950 ml # Voids 3 # Bowel Movements 2 3 Height (Feet): 4 Height (Inches): 3.00 Weight (Pounds): 143 General Appearance: no apparent distress, alert, agitated 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, oriented x 3 Evelia Vail M.D. Jul 29, 2017 14:42
[2017-07-29] MEDS ORDERED: LORazepam Inj 2mg/ml 1ml IV ONE (15:30)
[2017-07-29] MEDS ORDERED: DiphenhydrAMINE 50mg/ml Inj IM ONE (15:30)
[2017-07-29] MEDS ORDERED: Haloperidol 5mg/ml Inj IM ONE (15:30)
[2017-07-29 16:00] VITALS: BP 111/72
[2017-07-29] MEDS ORDERED: LORazepam Inj 2mg/ml 1ml IM ONE (16:05)
--- NOTE | 2017-07-29 16:09 | Pulmonology Progress Note ---
Assessment/Plan Problems: (1) Acute encephalopathy (2) Decubitus skin ulcer (3) Alcohol abuse (4) Scrotal edema (5) Cardiomyopathy (6) S/P AKA (above knee amputation) bilateral Assessment/Plan pt adamant about going home no new complains on diuretics check electrolytes Subjective ROS Limited/Unobtainable: No Constitutional: Reports: no symptoms HEENT: Repors: no symptoms Respiratory: Reports: no symptoms Allergies: Coded Allergies: NO KNOWN DRUG ALLERGIES (Unverified Allergy, Unknown, 11/11/14) Objective Last 24 Hour Vital Signs Date Time Temp Pulse Resp B/P (MAP) Pulse Ox O2 Delivery O2 Flow Rate FiO2 07/29/17 16:00 95.0 90 20 111/72 98 07/29/17 13:35 97.1 07/29/17 12:00 96.7 97 20 108/70 92 07/29/17 09:29 96 111/77 07/29/17 09:28 111/77 07/29/17 08:00 97.1 96 20 111/77 95 07/29/17 04:00 97.6 106 21 99/60 94 07/29/17 00:00 97.0 104 21 124/83 98 07/28/17 21:18 104 119/74 07/28/17 20:00 97.0 104 22 119/74 98 Intake and Output 07/28/17 07/29/17 19:00 07:00 Intake Total 960 ml Output Total 1000 ml 950 ml Balance -40 ml -950 ml Intake Oral 960 ml Output Urine Total 1000 ml 950 ml # Voids 3 # Bowel Movements 2 3 Objective General Appearance: no apparent distress, alert, poor eye contact HEENT: normocephalic, atraumatic, anicteric, mucous membranes moist Neck: non-tender, normal alignment, supple Respiratory/Chest: lungs clear, no respiratory distress, no accessory muscle use Cardiovascular/Chest: normal peripheral pulses, normal rate, no JVD Abdomen: normal bowel sounds, non tender, soft Extremities: aka, 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, 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, 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 Current Medications Medications (Trade) Dose Ordered Sig/Stevan Route PRN Reason Start Time Stop Time Status Last Admin Dose Admin Acetaminophen (Tylenol) 650 mg Q4H PRN ORAL Mild Pain/Temp > 100.5 07/26/17 15:00 08/25/17 14:59 07/29/17 12:39 Al Hydroxide/Mg Hydroxide (Mylanta II) 30 ml Q6H PRN ORAL dyspepsia 07/26/17 07:00 08/25/17 06:59 Carvedilol (Coreg) 3.125 mg EVERY 12 HOURS ORAL 07/28/17 21:00 08/27/17 20:59 07/29/17 09:29 Dextrose (Dextrose 50%) STAT PRN IV Hypoglycemia 07/26/17 07:00 08/25/17 06:59 Divalproex Sodium (Depakote) 500 mg EVERY 12 HOURS ORAL 07/29/17 21:00 08/28/17 20:59 Folic Acid (Folate) 1 mg DAILY ORAL 07/27/17 09:00 08/26/17 08:59 07/29/17 09:29 Furosemide (Lasix) 40 mg DAILY IV 07/28/17 09:00 08/27/17 08:59 Haloperidol Lactate (Haldol) 10 mg Q6H PRN IM Agitation 07/27/17 13:30 08/26/17 13:29 07/29/17 00:45 Lisinopril (Zestril) 5 mg DAILY ORAL 07/29/17 09:00 08/28/17 08:59 07/29/17 09:28 Lorazepam (Ativan 2mg/ml 1ml) 0.5 mg Q4H PRN IV For Anxiety 07/26/17 07:00 08/02/17 06:59 Lorazepam (Ativan 2mg/ml 1ml) 2 mg ONCE ONCE IM 07/29/17 16:05 07/29/17 16:06 Morphine Sulfate (Morphine Sulfate) 1 mg Q4H PRN IVP For Pain 07/28/17 14:45 08/04/17 14:44 07/28/17 14:44 Ondansetron HCl (Zofran) 4 mg Q6H PRN IVP Nausea & Vomiting 07/26/17 07:00 08/25/17 06:59 Polyethylene Glycol (Miralax) 17 gm HSPRN PRN ORAL Constipation 07/26/17 07:00 08/25/17 06:59 Promethazine HCl/ Dextromethorphan (Phenergan DM) 6.25 mg Q6H PRN ORAL For Cough 07/26/17 19:30 08/25/17 19:29 07/27/17 10:21 Risperidone (RisperDAL) 1 mg BID ORAL 07/29/17 18:00 08/28/17 17:59 Thiamine HCl (Vitamin B1) 100 mg DAILY ORAL 07/27/17 09:00 08/26/17 08:59 07/29/17 09:29 Zolpidem Tartrate (Ambien) 5 mg HSPRN PRN ORAL Insomnia 07/26/17 07:00 08/02/17 06:59 07/28/17 21:18 RAJANI JACOBS Jul 29, 2017 16:09
--- NOTE | 2017-07-29 18:23 | Cardiology Report ---
APPROVED REPORT EKG Measurement Heart [id number] Sinus tachycardia Nonspecific T wave abnormality Abnormal ECG
[2017-07-29 19:46] VITALS: BP 107/62
[2017-07-29] MEDS: Depakote 500mg tab ORAL SCH (22:29)
--- NOTE | 2017-07-29 22:45 | Progress Note ---
DATE: 07/28/2017 SUBJECTIVE: The patient continues to be agitated and tends to be belligerent and is uncooperative with the staff. Needs frequent redirection throughout the day and at times he is noncompliant with medications. MENTAL STATUS EXAMINATION: The patient is alert, oriented times self, place, and situation he is in. Mood is irritable and angry. Affect is constricted, congruent with mood. Thought process is concrete. Thought content, no suicidal or homicidal ideation. ASSESSMENT: Bipolar disorder. PLAN: 1. We will start the patient on Depakote 500 mg b.i.d. 2. We will continue the Haldol p.r.n. 3. The patient lacks capacity to leave. Evelia Vail M.D. DR: CLAUDETTE JOB#: [id number] CC:
[2017-07-30 00:12] VITALS: BP 145/69
[2017-07-30] MEDS: Zolpidem 5mg tab ORAL PRN (00:54)
[2017-07-30 04:00] VITALS: BP 127/63
[2017-07-30 08:28] VITALS: BP 114/78
[2017-07-30] MEDS: Depakote 500mg tab ORAL SCH ×2 (08:46→20:40)
[2017-07-30] MEDS: Lisinopril 2.5mg tab ORAL SCH (08:47)
[2017-07-30] MEDS: Thiamine 100mg tab ORAL SCH (08:47)
[2017-07-30 11:49] VITALS: BP 105/76
--- NOTE | 2017-07-30 15:39 | Pulmonology Progress Note ---
Assessment/Plan Problems: (1) Pleural effusion (2) Acute encephalopathy (3) Decubitus skin ulcer (4) Alcohol abuse (5) Scrotal edema (6) Cardiomyopathy (7) S/P AKA (above knee amputation) bilateral Assessment/Plan pt refused thoracentesis no new complains on diuretics check electrolytes pt agreed to go to skilled nursing wound care Subjective ROS Limited/Unobtainable: No Constitutional: Reports: no symptoms HEENT: Repors: no symptoms Respiratory: Reports: no symptoms Allergies: Coded Allergies: NO KNOWN DRUG ALLERGIES (Unverified Allergy, Unknown, 11/11/14) Objective Last 24 Hour Vital Signs Date Time Temp Pulse Resp B/P (MAP) Pulse Ox O2 Delivery O2 Flow Rate FiO2 07/30/17 11:49 98.2 92 21 105/76 100 07/30/17 08:28 97.8 92 21 114/78 97 07/30/17 04:00 97.7 70 20 127/63 97 07/30/17 00:12 98.2 77 19 145/69 99 07/29/17 22:30 87 107/62 07/29/17 19:46 97.4 87 18 107/62 97 07/29/17 16:00 95.0 90 20 111/72 98 Intake and Output 07/29/17 07/30/17 19:00 07:00 Intake Total 120 ml Output Total 800 ml Balance 120 ml -800 ml Intake Oral 120 ml Output Urine Total 800 ml # Voids 3 # Bowel Movements 4 Objective General Appearance: no apparent distress, alert, poor eye contact HEENT: normocephalic, atraumatic, anicteric, mucous membranes moist Neck: non-tender, normal alignment, supple Respiratory/Chest: lungs clear, no respiratory distress, no accessory muscle use Cardiovascular/Chest: normal peripheral pulses, normal rate, no JVD Abdomen: normal bowel sounds, non tender, soft Extremities: aka, 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, 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, 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 Current Medications Medications (Trade) Dose Ordered Sig/Stevan Route PRN Reason Start Time Stop Time Status Last Admin Dose Admin Acetaminophen (Tylenol) 650 mg Q4H PRN ORAL Mild Pain/Temp > 100.5 07/26/17 15:00 08/25/17 14:59 07/30/17 15:02 Al Hydroxide/Mg Hydroxide (Mylanta II) 30 ml Q6H PRN ORAL dyspepsia 07/26/17 07:00 08/25/17 06:59 Carvedilol (Coreg) 3.125 mg EVERY 12 HOURS ORAL 07/28/17 21:00 08/27/17 20:59 07/29/17 22:30 Dextrose (Dextrose 50%) STAT PRN IV Hypoglycemia 07/26/17 07:00 08/25/17 06:59 Divalproex Sodium (Depakote) 500 mg EVERY 12 HOURS ORAL 07/29/17 21:00 08/28/17 20:59 07/29/17 22:29 Folic Acid (Folate) 1 mg DAILY ORAL 07/27/17 09:00 08/26/17 08:59 07/29/17 09:29 Furosemide (Lasix) 40 mg DAILY IV 07/28/17 09:00 08/27/17 08:59 Haloperidol Lactate (Haldol) 10 mg Q6H PRN IM Agitation 07/27/17 13:30 08/26/17 13:29 07/29/17 00:45 Lisinopril (Zestril) 5 mg DAILY ORAL 07/29/17 09:00 08/28/17 08:59 07/29/17 09:28 Lorazepam (Ativan 2mg/ml 1ml) 0.5 mg Q4H PRN IV For Anxiety 07/26/17 07:00 08/02/17 06:59 Morphine Sulfate (Morphine Sulfate) 1 mg Q4H PRN IVP For Pain 07/28/17 14:45 08/04/17 14:44 07/28/17 14:44 Ondansetron HCl (Zofran) 4 mg Q6H PRN IVP Nausea & Vomiting 07/26/17 07:00 08/25/17 06:59 Polyethylene Glycol (Miralax) 17 gm HSPRN PRN ORAL Constipation 07/26/17 07:00 08/25/17 06:59 Promethazine HCl/ Dextromethorphan (Phenergan DM) 6.25 mg Q6H PRN ORAL For Cough 07/26/17 19:30 08/25/17 19:29 07/27/17 10:21 Risperidone (RisperDAL) 1 mg BID ORAL 07/29/17 18:00 08/28/17 17:59 07/30/17 10:27 Thiamine HCl (Vitamin B1) 100 mg DAILY ORAL 07/27/17 09:00 08/26/17 08:59 07/29/17 09:29 Zolpidem Tartrate (Ambien) 5 mg HSPRN PRN ORAL Insomnia 07/26/17 07:00 08/02/17 06:59 07/30/17 00:54 RAJANI JACOBS Jul 30, 2017 15:39
[2017-07-30 16:00] VITALS: BP 122/71
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
--- NOTE | 2017-07-30 17:50 | Internal Med Progress Note ---
Subjective Date of Service: Jul 30, 2017 Physician Name RomeoGordon Attending Physician Santi Barajas MD Current Medications Medications (Trade) Dose Ordered Sig/Stevan Route PRN Reason Start Time Stop Time Status Last Admin Dose Admin Acetaminophen (Tylenol) 650 mg Q4H PRN ORAL Mild Pain/Temp > 100.5 07/26/17 15:00 08/25/17 14:59 07/30/17 15:02 Al Hydroxide/Mg Hydroxide (Mylanta II) 30 ml Q6H PRN ORAL dyspepsia 07/26/17 07:00 08/25/17 06:59 Carvedilol (Coreg) 3.125 mg EVERY 12 HOURS ORAL 07/28/17 21:00 08/27/17 20:59 07/29/17 22:30 Dextrose (Dextrose 50%) STAT PRN IV Hypoglycemia 07/26/17 07:00 08/25/17 06:59 Divalproex Sodium (Depakote) 500 mg EVERY 12 HOURS ORAL 07/29/17 21:00 08/28/17 20:59 07/29/17 22:29 Folic Acid (Folate) 1 mg DAILY ORAL 07/27/17 09:00 08/26/17 08:59 07/29/17 09:29 Furosemide (Lasix) 40 mg DAILY IV 07/28/17 09:00 08/27/17 08:59 Haloperidol Lactate (Haldol) 10 mg Q6H PRN IM Agitation 07/27/17 13:30 08/26/17 13:29 07/29/17 00:45 Lisinopril (Zestril) 5 mg DAILY ORAL 07/29/17 09:00 08/28/17 08:59 07/29/17 09:28 Lorazepam (Ativan 2mg/ml 1ml) 0.5 mg Q4H PRN IV For Anxiety 07/26/17 07:00 08/02/17 06:59 Morphine Sulfate (Morphine Sulfate) 1 mg Q4H PRN IVP For Pain 07/28/17 14:45 08/04/17 14:44 07/28/17 14:44 Ondansetron HCl (Zofran) 4 mg Q6H PRN IVP Nausea & Vomiting 07/26/17 07:00 08/25/17 06:59 Polyethylene Glycol (Miralax) 17 gm HSPRN PRN ORAL Constipation 07/26/17 07:00 08/25/17 06:59 Promethazine HCl/ Dextromethorphan (Phenergan DM) 6.25 mg Q6H PRN ORAL For Cough 07/26/17 19:30 08/25/17 19:29 07/27/17 10:21 Risperidone (RisperDAL) 1 mg BID ORAL 07/29/17 18:00 08/28/17 17:59 07/30/17 10:27 Thiamine HCl (Vitamin B1) 100 mg DAILY ORAL 07/27/17 09:00 08/26/17 08:59 07/29/17 09:29 Zolpidem Tartrate (Ambien) 5 mg HSPRN PRN ORAL Insomnia 07/26/17 07:00 08/02/17 06:59 07/30/17 00:54 Allergies: Coded Allergies: NO KNOWN DRUG ALLERGIES (Unverified Allergy, Unknown, 11/11/14) ROS Limited/Unobtainable: No Constitutional: Reports: no symptoms HEENT: Reports: no symptoms Cardiovascular: Reports: no symptoms Respiratory: Reports: no symptoms Gastrointestinal/Abdominal: Reports: no symptoms Genitourinary: Reports: no symptoms Neurologic/Psychiatric: Reports: no symptoms Subjective 72 YO M admitted with alcohol abuse and decubitus ulcer. Cover for Int Med-Dr Barajas. Await placement @ board and care. Objective Last Vital Signs Date Time Temp Pulse Resp B/P (MAP) Pulse Ox O2 Delivery O2 Flow Rate FiO2 07/30/17 11:49 98.2 92 21 105/76 100 07/28/17 15:55 Room Air 07/27/17 08:15 2.0 Intake and Output 07/29/17 07/30/17 19:00 07:00 Intake Total 120 ml Output Total 800 ml Balance 120 ml -800 ml Intake Oral 120 ml Output Urine Total 800 ml # Voids 3 # Bowel Movements 4 Objective General Appearance: WD/WN, no apparent distress, alert EENT: PERRL/EOMI, normal ENT inspection Neck: non-tender, normal alignment, supple, normal inspection Cardiovascular: normal peripheral pulses, normal rate, regular rhythm, no gallop/murmur, no JVD Respiratory/Chest: chest wall non-tender, lungs clear, normal breath sounds, no respiratory distress, no accessory muscle use Abdomen: normal bowel sounds, non tender, soft, no organomegaly, no mass Genitourinary/Rectal: other - scrotal swelling right Extremities: Bilat above the knee amputation; normal range of motion Neurologic: md allergy immunology 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 (2) Right hydrocele Assessment & Plan: See scrotal ultrasound (3) Scrotal edema Assessment & Plan: Right Hydrocoele. Await urology consult. (4) Alcohol abuse Assessment & Plan: See psych eval (5) Decubitus skin ulcer Assessment & Plan: Wound care (6) S/P AKA (above knee amputation) bilateral (7) CHF (congestive heart failure) Assessment & Plan: EF=30-35%. See cardiology note. (8) Cardiomyopathy Assessment & Plan: ?Ischemic vs alcohol? See cardiology note. Status: stable Assessment/Plan Discharge planning: board and care GORDON ROMEO Jul 30, 2017 17:50
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
[2017-07-30 20:19] VITALS: BP 119/78
[2017-07-30] MEDS: Morphine Sulfate 4mg/ml Inj IVP PRN (20:39)
[2017-07-31 00:10] VITALS: BP 116/70
--- NOTE | 2017-07-31 01:30 | Progress Note ---
DATE: 07/30/2017 SUBJECTIVE: The patient is still delusional, disorganized. He is easily agitated and irritable. Compliant with medications. More cooperative. MENTAL STATUS EXAMINATION: The patient is alert and oriented times self, place, and situation. Mood is irritable. Affect is constricted, congruent with mood. Thought process is concrete. Thought content, no suicidal or homicidal ideations. PLAN: 1. Increase the risperidone to 2 mg twice a day and increase the Depakote to 750 mg twice a day. 2. We will continue to follow and readjust the medications. Evelia Vail M.D. DR: FRANCHESCA JOB#: [id number] CC:
[2017-07-31 04:00] VITALS: BP 113/74
[2017-07-31 08:00] VITALS: BP 132/92
[2017-07-31 08:57] LABS: HEMATOCRIT 39.9 % (42.0-52.0); HEMOGLOBIN 12.9 G/DL (14.2-18.0); MEAN CORPUSCULAR VOLUME 92 FL (80-99); PLATELET COUNT 161 K/UL (150-450); RED BLOOD COUNT 4.36 M/UL (4.70-6.10); RED CELL DISTRIBUTION WIDTH 17.4 % (11.6-14.8); WHITE BLOOD COUNT 3.1 K/UL (4.8-10.8)
[2017-07-31 09:15] LABS: ANION GAP 12 mmol/L (5-15); BLOOD UREA NITROGEN 10 mg/dL (7-18); CALCIUM 8.6 MG/DL (8.5-10.1); CARBON DIOXIDE 22 MMOL/L (21-32); CHLORIDE 108 MMOL/L (98-107); CREATININE 0.8 MG/DL (0.55-1.30); POTASSIUM 3.2 MMOL/L (3.5-5.1); SODIUM 142 MMOL/L (136-145)
[2017-07-31] MEDS: Thiamine 100mg tab ORAL SCH (09:17)
[2017-07-31] MEDS: LORazepam 1mg tab ORAL PRN ×2 (09:18→15:21)
[2017-07-31] MEDS: Lisinopril 2.5mg tab ORAL SCH (09:18)
[2017-07-31] MEDS: Depakote 500mg tab ORAL SCH ×2 (09:18→21:00)
--- NOTE | 2017-07-31 10:47 | General Progress Note ---
Progress Note Progress Note Surgery: doing well. no issues. comfortable. more talkative today. seems more compliant today. no n/v/f/c. wounds stable -keep of wounds. currently buttock/sacral ulcers very superficial but will worsen if not cared for by patient -turn q2 -pad -activity as tolerated -okay to d/c from surgical standpoint Ministerio Jay Jul 31, 2017 10:47
--- NOTE | 2017-07-31 11:33 | Internal Med Progress Note ---
Subjective Date of Service: Jul 31, 2017 Physician Name RomeoAvinash Attending Physician Santi Barajas MD Current Medications Medications (Trade) Dose Ordered Sig/Stevan Route PRN Reason Start Time Stop Time Status Last Admin Dose Admin Acetaminophen (Tylenol) 650 mg Q4H PRN ORAL Mild Pain/Temp > 100.5 07/26/17 15:00 08/25/17 14:59 07/31/17 05:51 Al Hydroxide/Mg Hydroxide (Mylanta II) 30 ml Q6H PRN ORAL dyspepsia 07/26/17 07:00 08/25/17 06:59 Carvedilol (Coreg) 3.125 mg EVERY 12 HOURS ORAL 07/28/17 21:00 08/27/17 20:59 07/31/17 09:17 Dextrose (Dextrose 50%) STAT PRN IV Hypoglycemia 07/26/17 07:00 08/25/17 06:59 Divalproex Sodium (Depakote) 750 mg EVERY 12 HOURS ORAL 07/31/17 09:00 08/30/17 08:59 07/31/17 09:18 Folic Acid (Folate) 1 mg DAILY ORAL 07/27/17 09:00 08/26/17 08:59 07/31/17 09:17 Furosemide (Lasix) 40 mg DAILY IV 07/28/17 09:00 08/27/17 08:59 Haloperidol Lactate (Haldol) 10 mg Q6H PRN IM Agitation 07/27/17 13:30 08/26/17 13:29 07/29/17 00:45 Lisinopril (Zestril) 5 mg DAILY ORAL 07/29/17 09:00 08/28/17 08:59 07/31/17 09:18 Lorazepam (Ativan 2mg/ml 1ml) 0.5 mg Q4H PRN IV For Anxiety 07/26/17 07:00 08/02/17 06:59 Lorazepam (Ativan) 2 mg Q6H PRN ORAL For Anxiety 07/31/17 08:30 08/07/17 08:29 07/31/17 09:18 Morphine Sulfate (Morphine Sulfate) 1 mg Q4H PRN IVP For Pain 07/28/17 14:45 08/04/17 14:44 07/30/17 20:39 Ondansetron HCl (Zofran) 4 mg Q6H PRN IVP Nausea & Vomiting 07/26/17 07:00 08/25/17 06:59 Polyethylene Glycol (Miralax) 17 gm HSPRN PRN ORAL Constipation 07/26/17 07:00 08/25/17 06:59 Promethazine HCl/ Dextromethorphan (Phenergan DM) 6.25 mg Q6H PRN ORAL For Cough 07/26/17 19:30 08/25/17 19:29 07/27/17 10:21 Risperidone (RisperDAL) 2 mg BID ORAL 07/31/17 09:00 08/30/17 08:59 07/31/17 09:17 Thiamine HCl (Vitamin B1) 100 mg DAILY ORAL 07/27/17 09:00 08/26/17 08:59 07/31/17 09:17 Zolpidem Tartrate (Ambien) 5 mg HSPRN PRN ORAL Insomnia 07/26/17 07:00 08/02/17 06:59 07/30/17 00:54 Allergies: Coded Allergies: NO KNOWN DRUG ALLERGIES (Unverified Allergy, Unknown, 11/11/14) ROS Limited/Unobtainable: No Constitutional: Reports: no symptoms HEENT: Reports: no symptoms Cardiovascular: Reports: no symptoms Respiratory: Reports: no symptoms Gastrointestinal/Abdominal: Reports: no symptoms Genitourinary: Reports: no symptoms Neurologic/Psychiatric: Reports: no symptoms Subjective 72 YO M admitted with alcohol abuse and decubitus ulcer. Cover for Int [place]-Dr Barajas. Await placement @ board and care. Objective Last Vital Signs Date Time Temp Pulse Resp B/P (MAP) Pulse Ox O2 Delivery O2 Flow Rate FiO2 07/31/17 09:18 132/92 07/31/17 09:17 101 07/31/17 08:00 97.3 19 96 Room Air 07/27/17 08:15 2.0 Laboratory Tests Test 07/31/17 07:30 White Blood Count 3.1 K/UL (4.8-10.8) L Red Blood Count 4.36 M/UL (4.70-6.10) L Hemoglobin 12.9 G/DL (14.2-18.0) L Hematocrit 39.9 % (42.0-52.0) L Mean Corpuscular Volume 92 FL (80-99) Mean Corpuscular Hemoglobin 29.6 PG (27.0-31.0) Mean Corpuscular Hemoglobin Concent 32.4 G/DL (32.0-36.0) Red Cell Distribution Width 17.4 % (11.6-14.8) H Platelet Count 161 K/UL (150-450) Mean Platelet Volume 8.0 FL (6.5-10.1) Neutrophils (%) (Auto) % (45.0-75.0) Lymphocytes (%) (Auto) % (20.0-45.0) Monocytes (%) (Auto) % (1.0-10.0) Eosinophils (%) (Auto) % (0.0-3.0) Basophils (%) (Auto) % (0.0-2.0) Differential Total Cells Counted 100 Neutrophils % (Manual) 66 % (45-75) Lymphocytes % (Manual) 28 % (20-45) Monocytes % (Manual) 5 % (1-10) Eosinophils % (Manual) 1 % (0-3) Basophils % (Manual) 0 % (0-2) Band Neutrophils 0 % (0-8) Platelet Estimate Adequate Platelet Morphology Normal Sodium Level 142 MMOL/L (136-145) Potassium Level 3.2 MMOL/L (3.5-5.1) L Chloride Level 108 MMOL/L (98-107) H Carbon Dioxide Level 22 MMOL/L (21-32) Anion Gap 12 mmol/L (5-15) Blood Urea Nitrogen 10 mg/dL (7-18) Creatinine 0.8 MG/DL (0.55-1.30) Estimat Glomerular Filtration Rate > 60 mL/min (>60) Glucose Level 141 MG/DL (74-106) H Calcium Level 8.6 MG/DL (8.5-10.1) Intake and Output 07/30/17 07/31/17 19:00 07:00 Intake Total 570 ml 250 ml Output Total 400 ml Balance 170 ml 250 ml Intake Oral 570 ml 250 ml Output Urine Total 400 ml # Voids 2 Objective General Appearance: WD/WN, no apparent distress, alert EENT: PERRL/EOMI, normal ENT inspection Neck: non-tender, normal alignment, supple, normal inspection Cardiovascular: normal peripheral pulses, normal rate, regular rhythm, no gallop/murmur, no JVD Respiratory/Chest: chest wall non-tender, lungs clear, normal breath sounds, no respiratory distress, no accessory muscle use Abdomen: normal bowel sounds, non tender, soft, no organomegaly, no mass Genitourinary/Rectal: other - scrotal swelling right Extremities: Bilat above the knee amputation; normal range of motion Neurologic: rope tier 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 (2) Right hydrocele Assessment & Plan: See scrotal ultrasound (3) Scrotal edema Assessment & Plan: Right Hydrocoele. Await urology consult. (4) Alcohol abuse Assessment & Plan: See psych eval (5) Decubitus skin ulcer Assessment & Plan: Wound care (6) S/P AKA (above knee amputation) bilateral (7) CHF (congestive heart failure) Assessment & Plan: EF=30-35%. See cardiology note. (8) Cardiomyopathy Assessment & Plan: ?Ischemic vs alcohol? See cardiology note. Assessment/Plan Discharge planning: board and care AVINASH ROMEO Jul 31, 2017 11:33
[2017-07-31] MEDS ORDERED: COREG3.125 MG ORAL (11:34)
[2017-07-31] MEDS ORDERED: DIVALPROEX SOD500 MG ORAL (11:34)
[2017-07-31] MEDS ORDERED: ATIVAN1 MG ORAL (11:34)
[2017-07-31] MEDS ORDERED: RISPERDAL1 MG ORAL (11:34)
[2017-07-31] MEDS ORDERED: LISINOPRIL5 MG ORAL (11:34)
[2017-07-31 12:00] VITALS: BP 97/54
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
--- NOTE | 2017-07-31 15:19 | Pulmonology Progress Note ---
Assessment/Plan Problems: (1) Pleural effusion (2) Acute encephalopathy (3) Decubitus skin ulcer (4) Alcohol abuse (5) Scrotal edema (6) Cardiomyopathy (7) S/P AKA (above knee amputation) bilateral Assessment/Plan tirate fio2 pt refused thoracentesis no new complains on diuretics check electrolytes pt [facility] symptomatic treatment Subjective ROS Limited/Unobtainable: No Constitutional: Reports: no symptoms HEENT: Repors: no symptoms Respiratory: Reports: no symptoms Allergies: Coded Allergies: NO KNOWN DRUG ALLERGIES (Unverified Allergy, Unknown, 11/11/14) Objective Last 24 Hour Vital Signs Date Time Temp Pulse Resp B/P (MAP) Pulse Ox O2 Delivery O2 Flow Rate FiO2 07/31/17 12:00 98.0 90 18 97/54 97 Room Air 07/31/17 09:18 132/92 07/31/17 09:17 101 132/92 07/31/17 08:00 97.3 101 19 132/92 96 Room Air 07/31/17 04:00 97.9 94 20 113/74 95 07/31/17 00:10 97.0 96 19 116/70 98 07/30/17 20:40 86 07/30/17 20:19 97.9 99 19 119/78 98 07/30/17 16:00 97.0 97 20 122/71 98 Intake and Output 07/30/17 07/31/17 19:00 07:00 Intake Total 570 ml 250 ml Output Total 400 ml Balance 170 ml 250 ml Intake Oral 570 ml 250 ml Output Urine Total 400 ml # Voids 2 Objective General Appearance: no apparent distress, alert, poor eye contact HEENT: normocephalic, atraumatic, anicteric, mucous membranes moist Neck: non-tender, normal alignment, supple Respiratory/Chest: lungs clear, no respiratory distress, no accessory muscle use Cardiovascular/Chest: normal peripheral pulses, normal rate, no JVD Abdomen: normal bowel sounds, non tender, soft Extremities: aka, 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, 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, 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 Laboratory Tests 07/31/17 07:30: White Blood Count 3.1L, Red Blood Count 4.36L, Hemoglobin 12.9L, Hematocrit 39.9L, Mean Corpuscular Volume 92, Mean Corpuscular Hemoglobin 29.6, Mean Corpuscular Hemoglobin Concent 32.4, Red Cell Distribution Width 17.4H, Platelet Count 161, Mean Platelet Volume 8.0, Neutrophils (%) (Auto) , Lymphocytes (%) (Auto) , Monocytes (%) (Auto) , Eosinophils (%) (Auto) , Basophils (%) (Auto) , Differential Total Cells Counted 100, Neutrophils % ( Manual) 66, Lymphocytes % (Manual) 28, Monocytes % (Manual) 5, Eosinophils % ( Manual) 1, Basophils % (Manual) 0, Band Neutrophils 0, Platelet Estimate Adequate, Platelet Morphology Normal, Sodium Level 142, Potassium Level 3.2L, Chloride Level 108H, Carbon Dioxide Level 22, Anion Gap 12, Blood Urea Nitrogen 10, Creatinine 0.8, Estimat Glomerular Filtration Rate > 60, Glucose Level 141H , Calcium Level 8.6 Current Medications Medications (Trade) Dose Ordered Sig/Stevan Route PRN Reason Start Time Stop Time Status Last Admin Dose Admin Acetaminophen (Tylenol) 650 mg Q4H PRN ORAL Mild Pain/Temp > 100.5 07/26/17 15:00 08/25/17 14:59 07/31/17 05:51 Al Hydroxide/Mg Hydroxide (Mylanta II) 30 ml Q6H PRN ORAL dyspepsia 07/26/17 07:00 08/25/17 06:59 Carvedilol (Coreg) 3.125 mg EVERY 12 HOURS ORAL 07/28/17 21:00 08/27/17 20:59 07/31/17 09:17 Dextrose (Dextrose 50%) STAT PRN IV Hypoglycemia 07/26/17 07:00 08/25/17 06:59 Divalproex Sodium (Depakote) 750 mg EVERY 12 HOURS ORAL 07/31/17 09:00 08/30/17 08:59 07/31/17 09:18 Folic Acid (Folate) 1 mg DAILY ORAL 07/27/17 09:00 08/26/17 08:59 07/31/17 09:17 Furosemide (Lasix) 40 mg DAILY IV 07/28/17 09:00 08/27/17 08:59 Haloperidol Lactate (Haldol) 10 mg Q6H PRN IM Agitation 07/27/17 13:30 08/26/17 13:29 07/29/17 00:45 Lisinopril (Zestril) 5 mg DAILY ORAL 07/29/17 09:00 08/28/17 08:59 07/31/17 09:18 Lorazepam (Ativan 2mg/ml 1ml) 0.5 mg Q4H PRN IV For Anxiety 07/26/17 07:00 08/02/17 06:59 Lorazepam (Ativan) 2 mg Q6H PRN ORAL For Anxiety 07/31/17 08:30 08/07/17 08:29 07/31/17 09:18 Morphine Sulfate (Morphine Sulfate) 1 mg Q4H PRN IVP For Pain 07/28/17 14:45 08/04/17 14:44 07/30/17 20:39 Ondansetron HCl (Zofran) 4 mg Q6H PRN IVP Nausea & Vomiting 07/26/17 07:00 08/25/17 06:59 Polyethylene Glycol (Miralax) 17 gm HSPRN PRN ORAL Constipation 07/26/17 07:00 08/25/17 06:59 Promethazine HCl/ Dextromethorphan (Phenergan DM) 6.25 mg Q6H PRN ORAL For Cough 07/26/17 19:30 08/25/17 19:29 07/27/17 10:21 Risperidone (RisperDAL) 2 mg BID ORAL 07/31/17 09:00 08/30/17 08:59 07/31/17 09:17 Thiamine HCl (Vitamin B1) 100 mg DAILY ORAL 07/27/17 09:00 08/26/17 08:59 07/31/17 09:17 Zolpidem Tartrate (Ambien) 5 mg HSPRN PRN ORAL Insomnia 07/26/17 07:00 08/02/17 06:59 07/30/17 00:54 RAJANI JACOBS Jul 31, 2017 15:19
[2017-07-31 16:00] VITALS: BP 129/71
[2017-08-01 04:00] VITALS: BP 133/77
--- NOTE | 2017-08-01 04:02 | Progress Note ---
DATE: 07/31/2017 SUBJECTIVE: The patient is looking agitated and wanted to leave against medical advice. The patient is illogical. He has poor insight and judgment into his mental condition. He is unable to understand, process, or communicate. MENTAL STATUS EXAMINATION: The patient is alert and oriented times self, place, and situation. Mood is irritable and angry. Affect is agitated. Thought process is disorganized. Thought content, positive for delusions. Insight and judgment non-existent. ASSESSMENT: Schizophrenia. The patient lacks capacity to make decisions. PLAN: 1. We will increase the risperidone to 3 mg b.i.d. 2. We will continue to follow and readjust the medications. Evelia Vail M.D. DR: XIOMARA JOB#: [id number] CC:
[2017-08-01 07:06] LABS: HEMATOCRIT 38.8 % (42.0-52.0); HEMOGLOBIN 13.4 G/DL (14.2-18.0); MEAN CORPUSCULAR VOLUME 91 FL (80-99); PLATELET COUNT 156 K/UL (150-450); RED BLOOD COUNT 4.26 M/UL (4.70-6.10); RED CELL DISTRIBUTION WIDTH 17.3 % (11.6-14.8); WHITE BLOOD COUNT 2.8 K/UL (4.8-10.8)
[2017-08-01 07:21] LABS: ANION GAP 8 mmol/L (5-15); BLOOD UREA NITROGEN 8 mg/dL (7-18); CALCIUM 8.6 MG/DL (8.5-10.1); CARBON DIOXIDE 23 MMOL/L (21-32); CHLORIDE 109 MMOL/L (98-107); CREATININE 0.6 MG/DL (0.55-1.30); SODIUM 140 MMOL/L (136-145)
[2017-08-01 07:52] VITALS: BP 103/71
[2017-08-01] MEDS: LORazepam 1mg tab ORAL PRN (08:20)
[2017-08-01] MEDS: Depakote 500mg tab ORAL SCH ×2 (08:28→20:29)
[2017-08-01] MEDS: Lisinopril 2.5mg tab ORAL SCH (08:29)
[2017-08-01] MEDS: Thiamine 100mg tab ORAL SCH (08:34)
[2017-08-01 11:57] VITALS: BP 112/58
--- NOTE | 2017-08-01 13:07 | Internal Med Progress Note ---
Subjective Date of Service: Aug 01, 2017 Physician Name RomeoAvinash Attending Physician Santi Barajas MD Current Medications Medications (Trade) Dose Ordered Sig/Stevan Route PRN Reason Start Time Stop Time Status Last Admin Dose Admin Acetaminophen (Tylenol) 650 mg Q4H PRN ORAL Mild Pain/Temp > 100.5 07/26/17 15:00 08/25/17 14:59 08/01/17 08:33 Al Hydroxide/Mg Hydroxide (Mylanta II) 30 ml Q6H PRN ORAL dyspepsia 07/26/17 07:00 08/25/17 06:59 Carvedilol (Coreg) 3.125 mg EVERY 12 HOURS ORAL 07/28/17 21:00 08/27/17 20:59 07/31/17 09:17 Dextrose (Dextrose 50%) STAT PRN IV Hypoglycemia 07/26/17 07:00 08/25/17 06:59 Divalproex Sodium (Depakote) 750 mg EVERY 12 HOURS ORAL 07/31/17 09:00 08/30/17 08:59 08/01/17 08:28 Folic Acid (Folate) 1 mg DAILY ORAL 07/27/17 09:00 08/26/17 08:59 08/01/17 08:20 Furosemide (Lasix) 40 mg DAILY IV 07/28/17 09:00 08/27/17 08:59 Haloperidol Lactate (Haldol) 10 mg Q6H PRN IM Agitation 07/27/17 13:30 08/26/17 13:29 07/29/17 00:45 Lisinopril (Zestril) 5 mg DAILY ORAL 07/29/17 09:00 08/28/17 08:59 07/31/17 09:18 Lorazepam (Ativan 2mg/ml 1ml) 0.5 mg Q4H PRN IV For Anxiety 07/26/17 07:00 08/02/17 06:59 Lorazepam (Ativan) 2 mg Q6H PRN ORAL For Anxiety 07/31/17 08:30 08/07/17 08:29 08/01/17 08:20 Morphine Sulfate (Morphine Sulfate) 1 mg Q4H PRN IVP For Pain 07/28/17 14:45 08/04/17 14:44 07/30/17 20:39 Ondansetron HCl (Zofran) 4 mg Q6H PRN IVP Nausea & Vomiting 07/26/17 07:00 08/25/17 06:59 Polyethylene Glycol (Miralax) 17 gm HSPRN PRN ORAL Constipation 07/26/17 07:00 08/25/17 06:59 Promethazine HCl/ Dextromethorphan (Phenergan DM) 6.25 mg Q6H PRN ORAL For Cough 07/26/17 19:30 08/25/17 19:29 07/27/17 10:21 Risperidone (RisperDAL) 3 mg BID ORAL 08/01/17 09:00 08/31/17 08:59 08/01/17 08:28 Thiamine HCl (Vitamin B1) 100 mg DAILY ORAL 07/27/17 09:00 08/26/17 08:59 07/31/17 09:17 Zolpidem Tartrate (Ambien) 5 mg HSPRN PRN ORAL Insomnia 07/26/17 07:00 08/02/17 06:59 07/30/17 00:54 Allergies: Coded Allergies: NO KNOWN DRUG ALLERGIES (Unverified Allergy, Unknown, 11/11/14) ROS Limited/Unobtainable: No Constitutional: Reports: no symptoms HEENT: Reports: no symptoms Cardiovascular: Reports: no symptoms Respiratory: Reports: no symptoms Gastrointestinal/Abdominal: Reports: no symptoms Genitourinary: Reports: no symptoms Neurologic/Psychiatric: Reports: no symptoms Subjective 72 YO M admitted with alcohol abuse and decubitus ulcer. Cover for Int [facility]-Dr Barajas. Await placement @ board and care. Objective Last Vital Signs Date Time Temp Pulse Resp B/P (MAP) Pulse Ox O2 Delivery O2 Flow Rate FiO2 08/01/17 11:57 97.8 88 19 112/58 99 Nasal Cannula 07/27/17 08:15 2.0 Laboratory Tests Test 08/01/17 06:20 White Blood Count 2.8 K/UL (4.8-10.8) L Red Blood Count 4.26 M/UL (4.70-6.10) L Hemoglobin 13.4 G/DL (14.2-18.0) L Hematocrit 38.8 % (42.0-52.0) L Mean Corpuscular Volume 91 FL (80-99) Mean Corpuscular Hemoglobin 31.4 PG (27.0-31.0) H Mean Corpuscular Hemoglobin Concent 34.5 G/DL (32.0-36.0) Red Cell Distribution Width 17.3 % (11.6-14.8) H Platelet Count 156 K/UL (150-450) Mean Platelet Volume 7.7 FL (6.5-10.1) Neutrophils (%) (Auto) % (45.0-75.0) Lymphocytes (%) (Auto) % (20.0-45.0) Monocytes (%) (Auto) % (1.0-10.0) Eosinophils (%) (Auto) % (0.0-3.0) Basophils (%) (Auto) % (0.0-2.0) Differential Total Cells Counted 100 Neutrophils % (Manual) 46 % (45-75) Lymphocytes % (Manual) 50 % (20-45) H Monocytes % (Manual) 3 % (1-10) Eosinophils % (Manual) 1 % (0-3) Basophils % (Manual) 0 % (0-2) Band Neutrophils 0 % (0-8) Platelet Estimate Adequate Platelet Morphology Normal Anisocytosis 1+ Sodium Level 140 MMOL/L (136-145) Potassium Level 5.0 MMOL/L (3.5-5.1) # Chloride Level 109 MMOL/L (98-107) H Carbon Dioxide Level 23 MMOL/L (21-32) Anion Gap 8 mmol/L (5-15) Blood Urea Nitrogen 8 mg/dL (7-18) Creatinine 0.6 MG/DL (0.55-1.30) Estimat Glomerular Filtration Rate > 60 mL/min (>60) Glucose Level 98 MG/DL (74-106) Calcium Level 8.6 MG/DL (8.5-10.1) Intake and Output 07/31/17 08/01/17 19:00 07:00 Intake Total 925 ml Output Total 400 ml Balance 525 ml Intake Oral 925 ml Output Urine Total 400 ml # Voids 3 Objective General Appearance: WD/WN, no apparent distress, alert EENT: PERRL/EOMI, normal ENT inspection Neck: non-tender, normal alignment, supple, normal inspection Cardiovascular: normal peripheral pulses, normal rate, regular rhythm, no gallop/murmur, no JVD Respiratory/Chest: chest wall non-tender, lungs clear, normal breath sounds, no respiratory distress, no accessory muscle use Abdomen: normal bowel sounds, non tender, soft, no organomegaly, no mass Genitourinary/Rectal: other - scrotal swelling right Extremities: Bilat above the knee amputation; normal range of motion 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 (2) Right hydrocele Assessment & Plan: See scrotal ultrasound (3) Scrotal edema Assessment & Plan: Right [place]. Await urology consult. (4) Alcohol abuse Assessment & Plan: See psych eval (5) Decubitus skin ulcer Assessment & Plan: Wound care (6) S/P AKA (above knee amputation) bilateral (7) CHF (congestive heart failure) Assessment & Plan: EF=30-35%. See cardiology note. (8) Cardiomyopathy Assessment & Plan: ?Ischemic vs alcohol? See cardiology note. Status: stable Assessment/Plan Discharge planning: see case management note concerning board and care AVINASH ROMEO Aug 01, 2017 13:07
[2017-08-01 15:56] VITALS: BP 117/81
--- NOTE | 2017-08-01 17:55 | Pulmonology Progress Note ---
Assessment/Plan Problems: (1) Pleural effusion (2) Acute encephalopathy (3) Decubitus skin ulcer (4) Alcohol abuse (5) Scrotal edema (6) Cardiomyopathy (7) S/P AKA (above knee amputation) bilateral Assessment/Plan tirate fio2 pt refused thoracentesis no new complains on diuretics check electrolytes pt agreed to go to shelter wound care symptomatic treatment wants to go home Subjective ROS Limited/Unobtainable: No Allergies: Coded Allergies: NO KNOWN DRUG ALLERGIES (Unverified Allergy, Unknown, 11/11/14) Objective Last 24 Hour Vital Signs Date Time Temp Pulse Resp B/P (MAP) Pulse Ox O2 Delivery O2 Flow Rate FiO2 08/01/17 15:56 98.6 74 18 117/81 98 08/01/17 11:57 97.8 88 19 112/58 99 Nasal Cannula 08/01/17 10:40 98.0 08/01/17 08:29 103/71 08/01/17 08:28 107 103/71 08/01/17 07:52 98.0 107 18 103/71 Room Air 08/01/17 04:00 97.5 85 21 133/77 97 Intake and Output 07/31/17 08/01/17 19:00 07:00 Intake Total 925 ml Output Total 400 ml Balance 525 ml Intake Oral 925 ml Output Urine Total 400 ml # Voids 3 Objective General Appearance: no apparent distress, alert, poor eye contact HEENT: normocephalic, atraumatic, anicteric, mucous membranes moist Neck: non-tender, normal alignment, supple Respiratory/Chest: lungs clear, no respiratory distress, no accessory muscle use Cardiovascular/Chest: normal peripheral pulses, normal rate, no JVD Abdomen: normal bowel sounds, non tender, soft Extremities: aka, 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, 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, 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 Laboratory Tests 08/01/17 06:20: White Blood Count 2.8L, Red Blood Count 4.26L, Hemoglobin 13.4L, Hematocrit 38.8L, Mean Corpuscular Volume 91, Mean Corpuscular Hemoglobin 31.4H, Mean Corpuscular Hemoglobin Concent 34.5, Red Cell Distribution Width 17.3H, Platelet Count 156, Mean Platelet Volume 7.7, Neutrophils (%) (Auto) , Lymphocytes (%) (Auto) , Monocytes (%) (Auto) , Eosinophils (%) (Auto) , Basophils (%) (Auto) , Differential Total Cells Counted 100, Neutrophils % ( Manual) 46, Lymphocytes % (Manual) 50H, Monocytes % (Manual) 3, Eosinophils % ( Manual) 1, Basophils % (Manual) 0, Band Neutrophils 0, Platelet Estimate Adequate, Platelet Morphology Normal, Anisocytosis 1+, Sodium Level 140, Potassium Level 5.0#, Chloride Level 109H, Carbon Dioxide Level 23, Anion Gap 8 , Blood Urea Nitrogen 8, Creatinine 0.6, Estimat Glomerular Filtration Rate > 60 , Glucose Level 98, Calcium Level 8.6 Current Medications Medications (Trade) Dose Ordered Sig/Stevan Route PRN Reason Start Time Stop Time Status Last Admin Dose Admin Acetaminophen (Tylenol) 650 mg Q4H PRN ORAL Mild Pain/Temp > 100.5 07/26/17 15:00 08/25/17 14:59 08/01/17 08:33 Al Hydroxide/Mg Hydroxide (Mylanta II) 30 ml Q6H PRN ORAL dyspepsia 07/26/17 07:00 08/25/17 06:59 Carvedilol (Coreg) 3.125 mg EVERY 12 HOURS ORAL 07/28/17 21:00 08/27/17 20:59 07/31/17 09:17 Dextrose (Dextrose 50%) STAT PRN IV Hypoglycemia 07/26/17 07:00 08/25/17 06:59 Divalproex Sodium (Depakote) 750 mg EVERY 12 HOURS ORAL 07/31/17 09:00 08/30/17 08:59 08/01/17 08:28 Folic Acid (Folate) 1 mg DAILY ORAL 07/27/17 09:00 08/26/17 08:59 08/01/17 08:20 Furosemide (Lasix) 40 mg DAILY IV 07/28/17 09:00 08/27/17 08:59 Haloperidol Lactate (Haldol) 10 mg Q6H PRN IM Agitation 07/27/17 13:30 08/26/17 13:29 07/29/17 00:45 Lisinopril (Zestril) 5 mg DAILY ORAL 07/29/17 09:00 08/28/17 08:59 07/31/17 09:18 Lorazepam (Ativan 2mg/ml 1ml) 0.5 mg Q4H PRN IV For Anxiety 07/26/17 07:00 08/02/17 06:59 Lorazepam (Ativan) 2 mg Q6H PRN ORAL For Anxiety 07/31/17 08:30 08/07/17 08:29 08/01/17 08:20 Morphine Sulfate (Morphine Sulfate) 1 mg Q4H PRN IVP For Pain 07/28/17 14:45 08/04/17 14:44 07/30/17 20:39 Ondansetron HCl (Zofran) 4 mg Q6H PRN IVP Nausea & Vomiting 07/26/17 07:00 08/25/17 06:59 Polyethylene Glycol (Miralax) 17 gm HSPRN PRN ORAL Constipation 07/26/17 07:00 08/25/17 06:59 Promethazine HCl/ Dextromethorphan (Phenergan DM) 6.25 mg Q6H PRN ORAL For Cough 07/26/17 19:30 08/25/17 19:29 07/27/17 10:21 Risperidone (RisperDAL) 3 mg BID ORAL 08/01/17 09:00 08/31/17 08:59 08/01/17 17:11 Thiamine HCl (Vitamin B1) 100 mg DAILY ORAL 07/27/17 09:00 08/26/17 08:59 07/31/17 09:17 Zolpidem Tartrate (Ambien) 5 mg HSPRN PRN ORAL Insomnia 07/26/17 07:00 08/02/17 06:59 07/30/17 00:54 RAJANI JACOBS Aug 01, 2017 17:55
[2017-08-01 20:14] VITALS: BP 111/70
[2017-08-01] MEDS: Zolpidem 5mg tab ORAL PRN (20:29)
[2017-08-02] VITALS (7 sets, daily range): BP systolic 100–127; BP diastolic 58–86
[2017-08-02] MEDS: LORazepam 1mg tab ORAL PRN (00:06)
[2017-08-02 06:39] LABS: HEMATOCRIT 38.3 % (42.0-52.0); HEMOGLOBIN 12.6 G/DL (14.2-18.0); MEAN CORPUSCULAR VOLUME 92 FL (80-99); PLATELET COUNT 158 K/UL (150-450); RED BLOOD COUNT 4.17 M/UL (4.70-6.10); RED CELL DISTRIBUTION WIDTH 17.7 % (11.6-14.8)
[2017-08-02 07:09] LABS: ANION GAP 7 mmol/L (5-15); BLOOD UREA NITROGEN 8 mg/dL (7-18); CALCIUM 8.7 MG/DL (8.5-10.1); CARBON DIOXIDE 25 MMOL/L (21-32); CHLORIDE 110 MMOL/L (98-107); CREATININE 0.7 MG/DL (0.55-1.30); POTASSIUM 3.8 MMOL/L (3.5-5.1); SODIUM 142 MMOL/L (136-145)
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
[2017-08-02] MEDS: Thiamine 100mg tab ORAL SCH (10:19)
[2017-08-02] MEDS: Lisinopril 2.5mg tab ORAL SCH (10:19)
[2017-08-02] MEDS: Depakote 500mg tab ORAL SCH ×2 (10:20→21:00)
--- NOTE | 2017-08-02 19:18 | Internal Med Progress Note ---
Subjective Date of Service: Aug 02, 2017 Physician Name RomeoGordon Attending Physician Santi Barajas MD Current Medications Medications (Trade) Dose Ordered Sig/Stevan Route PRN Reason Start Time Stop Time Status Last Admin Dose Admin Acetaminophen (Tylenol) 650 mg Q4H PRN ORAL Mild Pain/Temp > 100.5 07/26/17 15:00 08/25/17 14:59 08/02/17 17:33 Al Hydroxide/Mg Hydroxide (Mylanta II) 30 ml Q6H PRN ORAL dyspepsia 07/26/17 07:00 08/25/17 06:59 Carvedilol (Coreg) 3.125 mg EVERY 12 HOURS ORAL 07/28/17 21:00 08/27/17 20:59 08/02/17 10:20 Dextrose (Dextrose 50%) STAT PRN IV Hypoglycemia 07/26/17 07:00 08/25/17 06:59 Divalproex Sodium (Depakote) 750 mg EVERY 12 HOURS ORAL 07/31/17 09:00 08/30/17 08:59 08/02/17 10:20 Folic Acid (Folate) 1 mg DAILY ORAL 07/27/17 09:00 08/26/17 08:59 08/02/17 10:20 Furosemide (Lasix) 40 mg DAILY IV 07/28/17 09:00 08/27/17 08:59 Haloperidol Lactate (Haldol) 10 mg Q6H PRN IM Agitation 07/27/17 13:30 08/26/17 13:29 07/29/17 00:45 Lisinopril (Zestril) 5 mg DAILY ORAL 07/29/17 09:00 08/28/17 08:59 08/02/17 10:19 Lorazepam (Ativan) 2 mg Q6H PRN ORAL For Anxiety 07/31/17 08:30 08/07/17 08:29 08/02/17 00:06 Morphine Sulfate (Morphine Sulfate) 1 mg Q4H PRN IVP For Pain 07/28/17 14:45 08/04/17 14:44 07/30/17 20:39 Ondansetron HCl (Zofran) 4 mg Q6H PRN IVP Nausea & Vomiting 07/26/17 07:00 08/25/17 06:59 Polyethylene Glycol (Miralax) 17 gm HSPRN PRN ORAL Constipation 07/26/17 07:00 08/25/17 06:59 Promethazine HCl/ Dextromethorphan (Phenergan DM) 6.25 mg Q6H PRN ORAL For Cough 07/26/17 19:30 08/25/17 19:29 07/27/17 10:21 Risperidone (RisperDAL) 3 mg BID ORAL 08/01/17 09:00 08/31/17 08:59 08/02/17 17:33 Thiamine HCl (Vitamin B1) 100 mg DAILY ORAL 07/27/17 09:00 08/26/17 08:59 08/02/17 10:19 Allergies: Coded Allergies: NO KNOWN DRUG ALLERGIES (Unverified Allergy, Unknown, 11/11/14) ROS Limited/Unobtainable: No Constitutional: Reports: no symptoms HEENT: Reports: no symptoms Cardiovascular: Reports: no symptoms Respiratory: Reports: no symptoms Gastrointestinal/Abdominal: Reports: no symptoms Genitourinary: Reports: no symptoms Neurologic/Psychiatric: Reports: no symptoms Subjective 72 YO M admitted with alcohol abuse and decubitus ulcer. Cover for Int Med-Dr Barajas. Await placement @ [facility] Objective Last Vital Signs Date Time Temp Pulse Resp B/P (MAP) Pulse Ox O2 Delivery O2 Flow Rate FiO2 08/02/17 18:33 97.5 08/02/17 16:00 88 18 124/85 97 Room Air 07/27/17 08:15 2.0 Laboratory Tests Test 08/02/17 05:20 White Blood Count 3.0 K/UL (4.8-10.8) L Red Blood Count 4.17 M/UL (4.70-6.10) L Hemoglobin 12.6 G/DL (14.2-18.0) L Hematocrit 38.3 % (42.0-52.0) L Mean Corpuscular Volume 92 FL (80-99) Mean Corpuscular Hemoglobin 30.2 PG (27.0-31.0) Mean Corpuscular Hemoglobin Concent 32.9 G/DL (32.0-36.0) Red Cell Distribution Width 17.7 % (11.6-14.8) H Platelet Count 158 K/UL (150-450) Mean Platelet Volume 7.3 FL (6.5-10.1) Neutrophils (%) (Auto) % (45.0-75.0) Lymphocytes (%) (Auto) % (20.0-45.0) Monocytes (%) (Auto) % (1.0-10.0) Eosinophils (%) (Auto) % (0.0-3.0) Basophils (%) (Auto) % (0.0-2.0) Differential Total Cells Counted 100 Neutrophils % (Manual) 48 % (45-75) Lymphocytes % (Manual) 40 % (20-45) Monocytes % (Manual) 9 % (1-10) Eosinophils % (Manual) 3 % (0-3) Basophils % (Manual) 0 % (0-2) Band Neutrophils 0 % (0-8) Platelet Estimate Adequate Platelet Morphology Normal Anisocytosis 1+ Sodium Level 142 MMOL/L (136-145) Potassium Level 3.8 MMOL/L (3.5-5.1) Chloride Level 110 MMOL/L (98-107) H Carbon Dioxide Level 25 MMOL/L (21-32) Anion Gap 7 mmol/L (5-15) Blood Urea Nitrogen 8 mg/dL (7-18) Creatinine 0.7 MG/DL (0.55-1.30) Estimat Glomerular Filtration Rate > 60 mL/min (>60) Glucose Level 96 MG/DL (74-106) Calcium Level 8.7 MG/DL (8.5-10.1) Intake and Output 08/01/17 08/02/17 19:00 07:00 Intake Total 480 ml 360 ml Output Total 550 ml Balance -70 ml 360 ml Intake Oral 480 ml 360 ml Output Urine Total 550 ml # Voids 4 3 # Bowel Movements 1 1 Objective General Appearance: WD/WN, no apparent distress, alert EENT: PERRL/EOMI, normal ENT inspection Neck: non-tender, normal alignment, supple, normal inspection Cardiovascular: normal peripheral pulses, normal rate, regular rhythm, no gallop/murmur, no JVD Respiratory/Chest: chest wall non-tender, lungs clear, normal breath sounds, no respiratory distress, no accessory muscle use Abdomen: normal bowel sounds, non tender, soft, no organomegaly, no mass Genitourinary/Rectal: other - scrotal swelling right Extremities: Bilat above the knee amputation; normal range of motion 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 (2) Right hydrocele Assessment & Plan: See scrotal ultrasound (3) Scrotal edema Assessment & Plan: Right Hydrocoele. Await urology consult. (4) Alcohol abuse Assessment & Plan: See psych eval (5) Decubitus skin ulcer Assessment & Plan: Wound care (6) S/P AKA (above knee amputation) bilateral (7) CHF (congestive heart failure) Assessment & Plan: EF=30-35%. See cardiology note. (8) Cardiomyopathy Assessment & Plan: ?Ischemic vs alcohol? See cardiology note. Assessment/Plan Discharge planning: [facility] GORDON ROMEO Aug 02, 2017 19:18
--- NOTE | 2017-08-02 22:36 | Pulmonology Progress Note ---
Assessment/Plan Problems: (1) Pleural effusion (2) Acute encephalopathy (3) Decubitus skin ulcer (4) Alcohol abuse (5) Scrotal edema (6) Cardiomyopathy (7) S/P AKA (above knee amputation) bilateral Assessment/Plan tirate fio2 doing better no new complains on diuretics check electrolytes pt agreed to go to [facility] home wound care symptomatic treatment wants to go home Subjective ROS Limited/Unobtainable: No Constitutional: Reports: no symptoms HEENT: Repors: no symptoms Allergies: Coded Allergies: NO KNOWN DRUG ALLERGIES (Unverified Allergy, Unknown, 11/11/14) Objective Last 24 Hour Vital Signs Date Time Temp Pulse Resp B/P (MAP) Pulse Ox O2 Delivery O2 Flow Rate FiO2 08/02/17 19:51 98.3 96 16 101/76 08/02/17 18:33 97.5 08/02/17 16:00 98.0 88 18 124/85 97 Room Air 08/02/17 12:00 98.0 94 18 111/75 98 Room Air 08/02/17 10:20 89 126/66 08/02/17 10:19 126/66 08/02/17 08:48 97.5 89 18 126/66 97 Room Air 08/02/17 04:00 98.4 76 20 120/78 96 08/02/17 00:09 97.8 70 18 127/86 96 Intake and Output 08/01/17 08/02/17 19:00 07:00 Intake Total 480 ml 360 ml Output Total 550 ml Balance -70 ml 360 ml Intake Oral 480 ml 360 ml Output Urine Total 550 ml # Voids 4 3 # Bowel Movements 1 1 Objective General Appearance: no apparent distress, alert, poor eye contact HEENT: normocephalic, atraumatic, anicteric, mucous membranes moist Neck: non-tender, normal alignment, supple Respiratory/Chest: lungs clear, no respiratory distress, no accessory muscle use Cardiovascular/Chest: normal peripheral pulses, normal rate, no JVD Abdomen: normal bowel sounds, non tender, soft Extremities: aka, 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, 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, 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 Laboratory Tests 08/02/17 05:20: White Blood Count 3.0L, Red Blood Count 4.17L, Hemoglobin 12.6L, Hematocrit 38.3L, Mean Corpuscular Volume 92, Mean Corpuscular Hemoglobin 30.2, Mean Corpuscular Hemoglobin Concent 32.9, Red Cell Distribution Width 17.7H, Platelet Count 158, Mean Platelet Volume 7.3, Neutrophils (%) (Auto) , Lymphocytes (%) (Auto) , Monocytes (%) (Auto) , Eosinophils (%) (Auto) , Basophils (%) (Auto) , Differential Total Cells Counted 100, Neutrophils % ( Manual) 48, Lymphocytes % (Manual) 40, Monocytes % (Manual) 9, Eosinophils % ( Manual) 3, Basophils % (Manual) 0, Band Neutrophils 0, Platelet Estimate Adequate, Platelet Morphology Normal, Anisocytosis 1+, Sodium Level 142, Potassium Level 3.8, Chloride Level 110H, Carbon Dioxide Level 25, Anion Gap 7, Blood Urea Nitrogen 8, Creatinine 0.7, Estimat Glomerular Filtration Rate > 60, Glucose Level 96, Calcium Level 8.7 Current Medications Medications (Trade) Dose Ordered Sig/Stevan Route PRN Reason Start Time Stop Time Status Last Admin Dose Admin Acetaminophen (Tylenol) 650 mg Q4H PRN ORAL Mild Pain/Temp > 100.5 07/26/17 15:00 08/25/17 14:59 08/02/17 17:33 Al Hydroxide/Mg Hydroxide (Mylanta II) 30 ml Q6H PRN ORAL dyspepsia 07/26/17 07:00 08/25/17 06:59 Carvedilol (Coreg) 3.125 mg EVERY 12 HOURS ORAL 07/28/17 21:00 08/27/17 20:59 08/02/17 10:20 Dextrose (Dextrose 50%) STAT PRN IV Hypoglycemia 07/26/17 07:00 08/25/17 06:59 Divalproex Sodium (Depakote) 750 mg EVERY 12 HOURS ORAL 07/31/17 09:00 08/30/17 08:59 08/02/17 10:20 Folic Acid (Folate) 1 mg DAILY ORAL 07/27/17 09:00 08/26/17 08:59 08/02/17 10:20 Furosemide (Lasix) 40 mg DAILY IV 07/28/17 09:00 08/27/17 08:59 Haloperidol Lactate (Haldol) 10 mg Q6H PRN IM Agitation 07/27/17 13:30 08/26/17 13:29 07/29/17 00:45 Lisinopril (Zestril) 5 mg DAILY ORAL 07/29/17 09:00 08/28/17 08:59 08/02/17 10:19 Lorazepam (Ativan) 2 mg Q6H PRN ORAL For Anxiety 07/31/17 08:30 08/07/17 08:29 08/02/17 00:06 Morphine Sulfate (Morphine Sulfate) 1 mg Q4H PRN IVP For Pain 07/28/17 14:45 08/04/17 14:44 07/30/17 20:39 Ondansetron HCl (Zofran) 4 mg Q6H PRN IVP Nausea & Vomiting 07/26/17 07:00 08/25/17 06:59 Polyethylene Glycol (Miralax) 17 gm HSPRN PRN ORAL Constipation 07/26/17 07:00 08/25/17 06:59 Promethazine HCl/ Dextromethorphan (Phenergan DM) 6.25 mg Q6H PRN ORAL For Cough 07/26/17 19:30 08/25/17 19:29 07/27/17 10:21 Risperidone (RisperDAL) 3 mg BID ORAL 08/01/17 09:00 08/31/17 08:59 08/02/17 17:33 Thiamine HCl (Vitamin B1) 100 mg DAILY ORAL 07/27/17 09:00 08/26/17 08:59 08/02/17 10:19 RAJANI JACOBS Aug 02, 2017 22:36
[2017-08-03 04:04] VITALS: BP 114/82
[2017-08-03 07:52] VITALS: BP 114/78
[2017-08-03] MEDS: Lisinopril 2.5mg tab ORAL SCH (08:30)
[2017-08-03] MEDS: Thiamine 100mg tab ORAL SCH (08:30)
[2017-08-03] MEDS: Depakote 500mg tab ORAL SCH (08:31)
--- NOTE | 2017-08-03 09:30 | Progress Note ---
DATE: 08/02/2017 NOTE: POOR AUDIO SUBJECTIVE: The patient continues to be confused. Mood is neutral agitation. Compliant. however, he does not have . MENTAL STATUS EXAMINATION: The patient is alert and oriented times self. Mood is anxious to agitated. Affect is flat. Thought process, there is a paucity of thought content. Thought content, no suicidal or homicidal ideations. Cognition is impaired. Insight and judgment non-existent. ASSESSMENT: 1. Schizophrenia. 2. History of alcohol dependence. 3. Agitation. PLAN: We will continue current medications. Evelia Vail M.D. DR: Mer JOB#: [id number] CC:
--- NOTE | 2017-08-03 11:29 | Pulmonology Progress Note ---
Assessment/Plan Problems: (1) Pleural effusion (2) Acute encephalopathy (3) Decubitus skin ulcer (4) Alcohol abuse (5) Scrotal edema (6) Cardiomyopathy (7) S/P AKA (above knee amputation) bilateral Assessment/Plan no new complains tirate fio2 doing better no new complains on diuretics, change to PO check electrolytes pt agreed to go to [facility] wound care symptomatic treatment wants to go home Subjective Constitutional: Reports: no symptoms HEENT: Repors: no symptoms Respiratory: Reports: no symptoms Allergies: Coded Allergies: NO KNOWN DRUG ALLERGIES (Unverified Allergy, Unknown, 11/11/14) Objective Last 24 Hour Vital Signs Date Time Temp Pulse Resp B/P (MAP) Pulse Ox O2 Delivery O2 Flow Rate FiO2 08/03/17 08:30 114/78 08/03/17 08:30 98 114/78 08/03/17 08:18 Room Air 08/03/17 07:57 98.3 08/03/17 07:52 98.3 98 20 114/78 99 08/03/17 04:04 97.2 104 16 114/82 98 Room Air 08/02/17 23:48 97.9 96 16 100/58 98 Room Air 08/02/17 19:51 98.3 96 16 101/76 08/02/17 16:00 98.0 88 18 124/85 97 Room Air 08/02/17 12:00 98.0 94 18 111/75 98 Room Air Intake and Output 08/02/17 08/03/17 19:00 07:00 Intake Total 400 ml 120 ml Balance 400 ml 120 ml Intake Oral 400 ml 120 ml # Voids 3 2 Objective General Appearance: no apparent distress, alert, poor eye contact HEENT: normocephalic, atraumatic, anicteric, mucous membranes moist Neck: non-tender, normal alignment, supple Respiratory/Chest: lungs clear, no respiratory distress, no accessory muscle use Cardiovascular/Chest: normal peripheral pulses, normal rate, no JVD Abdomen: normal bowel sounds, non tender, soft Extremities: aka, 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, 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, 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 Current Medications Medications (Trade) Dose Ordered Sig/Stevan Route PRN Reason Start Time Stop Time Status Last Admin Dose Admin Acetaminophen (Tylenol) 650 mg Q4H PRN ORAL Mild Pain/Temp > 100.5 07/26/17 15:00 08/25/17 14:59 08/03/17 06:58 Al Hydroxide/Mg Hydroxide (Mylanta II) 30 ml Q6H PRN ORAL dyspepsia 07/26/17 07:00 08/25/17 06:59 Carvedilol (Coreg) 3.125 mg EVERY 12 HOURS ORAL 07/28/17 21:00 08/27/17 20:59 08/03/17 08:30 Dextrose (Dextrose 50%) STAT PRN IV Hypoglycemia 07/26/17 07:00 08/25/17 06:59 Divalproex Sodium (Depakote) 750 mg EVERY 12 HOURS ORAL 07/31/17 09:00 08/30/17 08:59 08/03/17 08:31 Folic Acid (Folate) 1 mg DAILY ORAL 07/27/17 09:00 08/26/17 08:59 08/03/17 08:30 Furosemide (Lasix) 40 mg DAILY ORAL 08/03/17 11:45 09/02/17 11:44 Haloperidol Lactate (Haldol) 10 mg Q6H PRN IM Agitation 07/27/17 13:30 08/26/17 13:29 07/29/17 00:45 Lisinopril (Zestril) 5 mg DAILY ORAL 07/29/17 09:00 08/28/17 08:59 08/03/17 08:30 Lorazepam (Ativan) 2 mg Q6H PRN ORAL For Anxiety 07/31/17 08:30 08/07/17 08:29 08/02/17 00:06 Morphine Sulfate (Morphine Sulfate) 1 mg Q4H PRN IVP For Pain 07/28/17 14:45 08/04/17 14:44 07/30/17 20:39 Ondansetron HCl (Zofran) 4 mg Q6H PRN IVP Nausea & Vomiting 07/26/17 07:00 08/25/17 06:59 Polyethylene Glycol (Miralax) 17 gm HSPRN PRN ORAL Constipation 07/26/17 07:00 08/25/17 06:59 Promethazine HCl/ Dextromethorphan (Phenergan DM) 6.25 mg Q6H PRN ORAL For Cough 07/26/17 19:30 08/25/17 19:29 07/27/17 10:21 Risperidone (RisperDAL) 3 mg BID ORAL 08/01/17 09:00 08/31/17 08:59 08/03/17 08:30 Thiamine HCl (Vitamin B1) 100 mg DAILY ORAL 07/27/17 09:00 08/26/17 08:59 08/03/17 08:30 RAJANI JACOBS Aug 03, 2017 11:29
[2017-08-03 11:51] VITALS: BP 112/73
[2017-08-03] MEDS: Furosemide 40mg tab ORAL SCH (12:19)
[2017-08-03 15:06] VITALS: BP 95/69
--- NOTE | 2017-08-03 15:44 | Internal Med Progress Note ---
Subjective Date of Service: Aug 03, 2017 Physician Name RomeoGordon Attending Physician Santi Barajas MD Current Medications Medications (Trade) Dose Ordered Sig/Stevan Route PRN Reason Start Time Stop Time Status Last Admin Dose Admin Acetaminophen (Tylenol) 650 mg Q4H PRN ORAL Mild Pain/Temp > 100.5 07/26/17 15:00 08/25/17 14:59 08/03/17 06:58 Al Hydroxide/Mg Hydroxide (Mylanta II) 30 ml Q6H PRN ORAL dyspepsia 07/26/17 07:00 08/25/17 06:59 Carvedilol (Coreg) 3.125 mg EVERY 12 HOURS ORAL 07/28/17 21:00 08/27/17 20:59 08/03/17 08:30 Dextrose (Dextrose 50%) STAT PRN IV Hypoglycemia 07/26/17 07:00 08/25/17 06:59 Divalproex Sodium (Depakote) 750 mg EVERY 12 HOURS ORAL 07/31/17 09:00 08/30/17 08:59 08/03/17 08:31 Folic Acid (Folate) 1 mg DAILY ORAL 07/27/17 09:00 08/26/17 08:59 08/03/17 08:30 Furosemide (Lasix) 40 mg DAILY ORAL 08/03/17 11:45 09/02/17 11:44 08/03/17 12:19 Haloperidol Lactate (Haldol) 10 mg Q6H PRN IM Agitation 07/27/17 13:30 08/26/17 13:29 07/29/17 00:45 Lisinopril (Zestril) 5 mg DAILY ORAL 07/29/17 09:00 08/28/17 08:59 08/03/17 08:30 Lorazepam (Ativan) 2 mg Q6H PRN ORAL For Anxiety 07/31/17 08:30 08/07/17 08:29 08/02/17 00:06 Morphine Sulfate (Morphine Sulfate) 1 mg Q4H PRN IVP For Pain 07/28/17 14:45 08/04/17 14:44 07/30/17 20:39 Ondansetron HCl (Zofran) 4 mg Q6H PRN IVP Nausea & Vomiting 07/26/17 07:00 08/25/17 06:59 Polyethylene Glycol (Miralax) 17 gm HSPRN PRN ORAL Constipation 07/26/17 07:00 08/25/17 06:59 Promethazine HCl/ Dextromethorphan (Phenergan DM) 6.25 mg Q6H PRN ORAL For Cough 07/26/17 19:30 08/25/17 19:29 07/27/17 10:21 Risperidone (RisperDAL) 3 mg BID ORAL 08/01/17 09:00 08/31/17 08:59 08/03/17 08:30 Thiamine HCl (Vitamin B1) 100 mg DAILY ORAL 07/27/17 09:00 08/26/17 08:59 08/03/17 08:30 Allergies: Coded Allergies: NO KNOWN DRUG ALLERGIES (Unverified Allergy, Unknown, 11/11/14) ROS Limited/Unobtainable: No Constitutional: Reports: no symptoms HEENT: Reports: no symptoms Cardiovascular: Reports: no symptoms Respiratory: Reports: no symptoms Gastrointestinal/Abdominal: Reports: no symptoms Genitourinary: Reports: no symptoms Neurologic/Psychiatric: Reports: no symptoms Subjective 72 YO M admitted with alcohol abuse and decubitus ulcer. Cover for Int Med-Dr Barajas. [facility]wait placement @ [facility] Objective Last Vital Signs Date Time Temp Pulse Resp B/P (MAP) Pulse Ox O2 Delivery O2 Flow Rate FiO2 08/03/17 15:06 98.0 96 21 95/69 96 08/03/17 12:02 Room Air 07/27/17 08:15 2.0 Intake and Output 08/02/17 08/03/17 19:00 07:00 Intake Total 400 ml 120 ml Balance 400 ml 120 ml Intake Oral 400 ml 120 ml # Voids 3 2 Objective General Appearance: WD/WN, no apparent distress, alert EENT: PERRL/EOMI, normal ENT inspection Neck: non-tender, normal alignment, supple, normal inspection Cardiovascular: normal peripheral pulses, normal rate, regular rhythm, no gallop/murmur, no JVD Respiratory/Chest: chest wall non-tender, lungs clear, normal breath sounds, no respiratory distress, no accessory muscle use Abdomen: normal bowel sounds, non tender, soft, no organomegaly, no mass Genitourinary/Rectal: other - scrotal swelling right Extremities: Bilat above the knee amputation; normal range of motion 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 (2) Right hydrocele Assessment & Plan: See scrotal ultrasound (3) Scrotal edema Assessment & Plan: Right Hydrocoele. Await urology consult. (4) Alcohol abuse Assessment & Plan: See psych eval (5) Decubitus skin ulcer Assessment & Plan: Wound care (6) S/P AKA (above knee amputation) bilateral (7) CHF (congestive heart failure) Assessment & Plan: EF=30-35%. See cardiology note. (8) Cardiomyopathy Assessment & Plan: ?Ischemic vs alcohol? See cardiology note. Status: stable Assessment/Plan [facility] planning: [facility] GORDON ROMEO Aug 03, 2017 15:43
[2017-08-03 19:29] VITALS: BP 98/65
[2017-08-03] MEDS: Valproic Acid 250mg/5ml Liquid ORAL SCH (20:52)
[2017-08-04] VITALS: BP 99/68
[2017-08-04 03:34] VITALS: BP 112/75
[2017-08-04 07:55] VITALS: BP 109/73
[2017-08-04] MEDS: Valproic Acid 250mg/5ml Liquid ORAL SCH ×2 (08:12→20:43)
[2017-08-04] MEDS: Thiamine 100mg tab ORAL SCH (08:13)
[2017-08-04] MEDS: Furosemide 40mg tab ORAL SCH (08:13)
[2017-08-04] MEDS: Lisinopril 2.5mg tab ORAL SCH (08:13)
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
--- NOTE | 2017-08-04 10:34 | Pulmonology Progress Note ---
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5 08/04/17 00:00 98.5 89 20 99/68 96 Room Air 08/03/17 20:51 98 98/65 08/03/17 19:29 98.0 98 20 98/65 100 Room Air 08/03/17 17:42 Room Air 08/03/17 15:06 98.0 96 21 95/69 96 08/03/17 12:02 Room Air 08/03/17 11:51 97.9 90 21 112/73 98 Intake and Output 08/03/17 08/04/17 19:00 07:00 Intake Total 560 ml Output Total 500 ml Balance 60 ml Intake Oral 560 ml Output Urine Total 500 ml # Voids 1 2 # Bowel Movements 1 Objective General Appearance: no apparent distress, alert, poor eye contact HEENT: normocephalic, atraumatic, anicteric, mucous membranes moist Neck: non-tender, normal alignment, supple Respiratory/Chest: lungs clear, no respiratory distress, no accessory muscle use Cardiovascular/Chest: normal peripheral pulses, normal rate, no JVD Abdomen: normal bowel sounds, non tender, soft Extremities: aka, 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, responsive, [employer] Laboratory Tests 08/04/17 10:00: White Blood Count [Pending], Red Blood Count [Pending], Hemoglobin [Pending], Hematocrit [Pending], Mean Corpuscular Volume [Pending], Mean Corpuscular Hemoglobin [Pending], Mean Corpuscular Hemoglobin Concent [Pending], Red Cell Distribution Width [Pending], Platelet Count [Pending], Mean Platelet Volume [ Pending], Neutrophils (%) (Auto) [Pending], Lymphocytes (%) (Auto) [Pending], Monocytes (%) (Auto) [Pending], Eosinophils (%) (Auto) [Pending], Basophils (%) (Auto) [Pending], Sodium Level [Pending], Potassium Level [Pending], Chloride Level [Pending], Carbon Dioxide Level [Pending], Blood Urea Nitrogen [Pending], Creatinine [Pending], Estimat Glomerular Filtration Rate [Pending], Glucose Level [Pending], Calcium Level [Pending], Phosphorus Level [Pending], Magnesium Level [Pending], Total Bilirubin [Pending], Aspartate Amino Transf (AST/SGOT) [ Pending], Alanine Aminotransferase (ALT/SGPT) [Pending], Alkaline Phosphatase [ Pending], Total Protein [Pending], Albumin [Pending], Globulin [Pending] Current Medications Medications (Trade) Dose Ordered Sig/Stevan Route PRN Reason Start Time Stop Time Status Last Admin Dose Admin Acetaminophen (Tylenol) 650 mg Q4H PRN ORAL Mild Pain/Temp > 100.5 07/26/17 15:00 08/25/17 14:59 08/04/17 02:30 Al Hydroxide/Mg Hydroxide (Mylanta II) 30 ml Q6H PRN ORAL dyspepsia 07/26/17 07:00 08/25/17 06:59 Carvedilol (Coreg) 3.125 mg EVERY 12 HOURS ORAL 07/28/17 21:00 08/27/17 20:59 08/04/17 08:13 Dextrose (Dextrose 50%) STAT PRN IV Hypoglycemia 07/26/17 07:00 08/25/17 06:59 Folic Acid (Folate) 1 mg DAILY ORAL 07/27/17 09:00 08/26/17 08:59 08/04/17 08:13 Furosemide (Lasix) 40 mg DAILY ORAL 08/03/17 11:45 09/02/17 11:44 08/04/17 08:13 Haloperidol Lactate (Haldol) 10 mg Q6H PRN IM Agitation 07/27/17 13:30 08/26/17 13:29 07/29/17 00:45 Lisinopril (Zestril) 5 mg DAILY ORAL 07/29/17 09:00 08/28/17 08:59 08/04/17 08:13 Lorazepam (Ativan) 2 mg Q6H PRN ORAL For Anxiety 07/31/17 08:30 08/07/17 08:29 08/02/17 00:06 Morphine Sulfate (Morphine Sulfate) 1 mg Q4H PRN IVP For Pain 07/28/17 14:45 08/04/17 14:44 07/30/17 20:39 Ondansetron HCl (Zofran) 4 mg Q6H PRN IVP Nausea & Vomiting 07/26/17 07:00 08/25/17 06:59 Polyethylene Glycol (Miralax) 17 gm HSPRN PRN ORAL Constipation 07/26/17 07:00 08/25/17 06:59 Promethazine HCl/ Dextromethorphan (Phenergan DM) 6.25 mg Q6H PRN ORAL For Cough 07/26/17 19:30 08/25/17 19:29 07/27/17 10:21 Risperidone (RisperDAL) 3 mg BID ORAL 08/01/17 09:00 08/31/17 08:59 08/04/17 08:13 Thiamine HCl (Vitamin B1) 100 mg DAILY ORAL 07/27/17 09:00 08/26/17 08:59 08/04/17 08:13 Valproic Acid (Depakene) 750 mg EVERY 12 HOURS ORAL 08/03/17 21:00 09/02/17 20:59 08/04/17 08:12 RAJANI JACOBS Aug 04, 2017 10:34
[2017-08-04 10:59] LABS: ALANINE AMINOTRANSFERASE 18 U/L (12-78); ALBUMIN 2.7 G/DL (3.4-5.0); ALBUMIN/GLOBULIN RATIO 0.6 (1.0-2.7); ALKALINE PHOSPHATASE 50 U/L (46-116); ANION GAP 10 mmol/L (5-15); ASPARTATE AMINO TRANSFERASE 31 U/L (15-37); BILIRUBIN,TOTAL 0.4 MG/DL (0.2-1.0); BLOOD UREA NITROGEN 10 mg/dL (7-18); CALCIUM 8.9 MG/DL (8.5-10.1); CARBON DIOXIDE 24 MMOL/L (21-32); CHLORIDE 109 MMOL/L (98-107); CREATININE 0.8 MG/DL (0.55-1.30); POTASSIUM 4.4 MMOL/L (3.5-5.1); SODIUM 143 MMOL/L (136-145)
[2017-08-04 11:18] LABS: HEMOGLOBIN 13.3 G/DL (14.2-18.0); MEAN CORPUSCULAR VOLUME 92 FL (80-99); PLATELET COUNT 151 K/UL (150-450); RED BLOOD COUNT 4.44 M/UL (4.70-6.10); RED CELL DISTRIBUTION WIDTH 17.5 % (11.6-14.8)
[2017-08-04 11:44] VITALS: BP 106/68
[2017-08-04 15:44] VITALS: BP 107/63
--- NOTE | 2017-08-04 17:02 | Internal Med Progress Note ---
Subjective Date of Service: Aug 04, 2017 Physician Name Gordon Romeo Attending Physician Santi Barajas MD Current Medications Medications (Trade) Dose Ordered Sig/Stevan Route PRN Reason Start Time Stop Time Status Last Admin Dose Admin Acetaminophen (Tylenol) 650 mg Q4H PRN ORAL Mild Pain/Temp > 100.5 07/26/17 15:00 08/25/17 14:59 08/04/17 13:53 Al Hydroxide/Mg Hydroxide (Mylanta II) 30 ml Q6H PRN ORAL dyspepsia 07/26/17 07:00 08/25/17 06:59 Carvedilol (Coreg) 3.125 mg EVERY 12 HOURS ORAL 07/28/17 21:00 08/27/17 20:59 08/04/17 08:13 Dextrose (Dextrose 50%) STAT PRN IV Hypoglycemia 07/26/17 07:00 08/25/17 06:59 Folic Acid (Folate) 1 mg DAILY ORAL 07/27/17 09:00 08/26/17 08:59 08/04/17 08:13 Furosemide (Lasix) 40 mg DAILY ORAL 08/03/17 11:45 09/02/17 11:44 08/04/17 08:13 Haloperidol Lactate (Haldol) 10 mg Q6H PRN IM Agitation 07/27/17 13:30 08/26/17 13:29 07/29/17 00:45 Lisinopril (Zestril) 5 mg DAILY ORAL 07/29/17 09:00 08/28/17 08:59 08/04/17 08:13 Lorazepam (Ativan) 2 mg Q6H PRN ORAL For Anxiety 07/31/17 08:30 08/07/17 08:29 08/02/17 00:06 Ondansetron HCl (Zofran) 4 mg Q6H PRN IVP Nausea & Vomiting 07/26/17 07:00 08/25/17 06:59 Polyethylene Glycol (Miralax) 17 gm HSPRN PRN ORAL Constipation 07/26/17 07:00 08/25/17 06:59 Promethazine HCl/ Dextromethorphan (Phenergan DM) 6.25 mg Q6H PRN ORAL For Cough 07/26/17 19:30 08/25/17 19:29 2/3/18 10:21 Risperidone (RisperDAL) 3 mg BID ORAL 08/01/17 09:00 08/31/17 08:59 08/04/17 08:13 Thiamine HCl (Vitamin B1) 100 mg DAILY ORAL 07/27/17 09:00 08/26/17 08:59 08/04/17 08:13 Valproic Acid (Depakene) 750 mg EVERY 12 HOURS ORAL 08/03/17 21:00 09/02/17 20:59 08/04/17 08:12 Allergies: Coded Allergies: NO KNOWN DRUG ALLERGIES (Unverified Allergy, Unknown, 11/11/14) ROS Limited/Unobtainable: No Constitutional: Reports: no symptoms HEENT: Reports: no symptoms Cardiovascular: Reports: no symptoms Respiratory: Reports: no symptoms Gastrointestinal/Abdominal: Reports: no symptoms Genitourinary: Reports: no symptoms Neurologic/Psychiatric: Reports: no symptoms Subjective 72 YO M admitted with alcohol abuse and decubitus ulcer. Cover for Int Med-Dr Barajas. Await placement @ SNF Objective Last Vital Signs Date Time Temp Pulse Resp B/P (MAP) Pulse Ox O2 Delivery O2 Flow Rate FiO2 08/04/17 15:44 97.6 94 19 107/63 97 08/04/17 15:44 Room Air 07/27/17 08:15 2.0 Laboratory Tests Test 08/04/17 10:00 White Blood Count 3.0 K/UL (4.8-10.8) L Red Blood Count 4.44 M/UL (4.70-6.10) L Hemoglobin 13.3 G/DL (14.2-18.0) L Hematocrit 41.0 % (42.0-52.0) L Mean Corpuscular Volume 92 FL (80-99) Mean Corpuscular Hemoglobin 29.9 PG (27.0-31.0) Mean Corpuscular Hemoglobin Concent 32.4 G/DL (32.0-36.0) Red Cell Distribution Width 17.5 % (11.6-14.8) H Platelet Count 151 K/UL (150-450) Mean Platelet Volume 7.3 FL (6.5-10.1) Neutrophils (%) (Auto) % (45.0-75.0) Lymphocytes (%) (Auto) % (20.0-45.0) Monocytes (%) (Auto) % (1.0-10.0) Eosinophils (%) (Auto) % (0.0-3.0) Basophils (%) (Auto) % (0.0-2.0) Differential Total Cells Counted 100 Neutrophils % (Manual) 55 % (45-75) Lymphocytes % (Manual) 35 % (20-45) Monocytes % (Manual) 9 % (1-10) Eosinophils % (Manual) 1 % (0-3) Basophils % (Manual) 0 % (0-2) Band Neutrophils 0 % (0-8) Platelet Estimate Adequate Platelet Morphology Normal Red Blood Cell Morphology Normal Sodium Level 143 MMOL/L (136-145) Potassium Level 4.4 MMOL/L (3.5-5.1) Chloride Level 109 MMOL/L (98-107) H Carbon Dioxide Level 24 MMOL/L (21-32) Anion Gap 10 mmol/L (5-15) Blood Urea Nitrogen 10 mg/dL (7-18) Creatinine 0.8 MG/DL (0.55-1.30) Estimat Glomerular Filtration Rate > 60 mL/min (>60) Glucose Level 107 MG/DL (74-106) H Calcium Level 8.9 MG/DL (8.5-10.1) Phosphorus Level 5.0 MG/DL (2.5-4.9) H Magnesium Level 1.7 MG/DL (1.8-2.4) L Total Bilirubin 0.4 MG/DL (0.2-1.0) Aspartate Amino Transf (AST/SGOT) 31 U/L (15-37) Alanine Aminotransferase (ALT/SGPT) 18 U/L (12-78) Alkaline Phosphatase 50 U/L (46-116) Total Protein 7.2 G/DL (6.4-8.2) Albumin 2.7 G/DL (3.4-5.0) L Globulin 4.5 g/dL Albumin/Globulin Ratio 0.6 (1.0-2.7) L Intake and Output 08/03/17 08/04/17 19:00 07:00 Intake Total 560 ml Output Total 500 ml Balance 60 ml Intake Oral 560 ml Output Urine Total 500 ml # Voids 1 2 # Bowel Movements 1 Objective General Appearance: WD/WN, no apparent distress, alert EENT: PERRL/EOMI, normal ENT inspection Neck: non-tender, normal alignment, supple, normal inspection Cardiovascular: normal peripheral pulses, normal rate, regular rhythm, no gallop/murmur, no JVD Respiratory/Chest: chest wall non-tender, lungs clear, normal breath sounds, no respiratory distress, no accessory muscle use Abdomen: normal bowel sounds, non tender, soft, no organomegaly, no mass Genitourinary/Rectal: other - scrotal swelling right Extremities: Bilat above the knee amputation; normal range of motion Neurologic: 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 (2) Right hydrocele Assessment & Plan: See scrotal ultrasound (3) Scrotal edema Assessment & Plan: Right Hydrocoele. Await urology consult. (4) Alcohol abuse Assessment & Plan: See psych eval (5) Decubitus skin ulcer Assessment & Plan: Wound care (6) S/P AKA (above knee amputation) bilateral (7) CHF (congestive heart failure) Assessment & Plan: EF=30-35%. See cardiology note. (8) Cardiomyopathy Assessment & Plan: ?Ischemic vs alcohol? See cardiology note. Assessment/Plan Discharge planning: long-term fac GORDON ROMEO Aug 04, 2017 17:02
[2017-08-04 20:00] VITALS: BP 106/65
--- NOTE | 2017-08-04 23:29 | Geriatric Progress Note ---
Subjective Interval Events 08/03/17 Mood/Memory: Reports: prior hx, anxiety, depressed feelings, emotional problems Psychiatric: Reports: hallucinations Geriatric Geriatric Last 24 Hour Vital Signs Date Time Temp Pulse Resp B/P (MAP) Pulse Ox O2 Delivery O2 Flow Rate FiO2 08/04/17 20:47 92 106/65 08/04/17 20:00 97.5 92 20 106/65 95 08/04/17 15:44 97.6 94 19 107/63 97 08/04/17 15:44 Room Air 08/04/17 11:44 Room Air 08/04/17 11:44 97.6 90 19 106/68 97 08/04/17 08:13 109/73 08/04/17 08:13 98 109/73 08/04/17 07:55 Room Air 08/04/17 07:55 97.8 98 19 109/73 98 08/04/17 03:34 97.6 90 20 112/75 97 Room Air 08/04/17 03:29 98.5 08/04/17 00:00 98.5 89 20 99/68 96 Room Air Intake and Output 08/03/17 08/04/17 19:00 07:00 Intake Total 560 ml Output Total 500 ml Balance 60 ml Intake Oral 560 ml Output Urine Total 500 ml # Voids 1 2 # Bowel Movements 1 Laboratory Tests Test 08/04/17 10:00 White Blood Count 3.0 K/UL (4.8-10.8) L Red Blood Count 4.44 M/UL (4.70-6.10) L Hemoglobin 13.3 G/DL (14.2-18.0) L Hematocrit 41.0 % (42.0-52.0) L Mean Corpuscular Volume 92 FL (80-99) Mean Corpuscular Hemoglobin 29.9 PG (27.0-31.0) Mean Corpuscular Hemoglobin Concent 32.4 G/DL (32.0-36.0) Red Cell Distribution Width 17.5 % (11.6-14.8) H Platelet Count 151 K/UL (150-450) Mean Platelet Volume 7.3 FL (6.5-10.1) Neutrophils (%) (Auto) % (45.0-75.0) Lymphocytes (%) (Auto) % (20.0-45.0) Monocytes (%) (Auto) % (1.0-10.0) Eosinophils (%) (Auto) % (0.0-3.0) Basophils (%) (Auto) % (0.0-2.0) Differential Total Cells Counted 100 Neutrophils % (Manual) 55 % (45-75) Lymphocytes % (Manual) 35 % (20-45) Monocytes % (Manual) 9 % (1-10) Eosinophils % (Manual) 1 % (0-3) Basophils % (Manual) 0 % (0-2) Band Neutrophils 0 % (0-8) Platelet Estimate Adequate Platelet Morphology Normal Red Blood Cell Morphology Normal Sodium Level 143 MMOL/L (136-145) Potassium Level 4.4 MMOL/L (3.5-5.1) Chloride Level 109 MMOL/L (98-107) H Carbon Dioxide Level 24 MMOL/L (21-32) Anion Gap 10 mmol/L (5-15) Blood Urea Nitrogen 10 mg/dL (7-18) Creatinine 0.8 MG/DL (0.55-1.30) Estimat Glomerular Filtration Rate > 60 mL/min (>60) Glucose Level 107 MG/DL (74-106) H Calcium Level 8.9 MG/DL (8.5-10.1) Phosphorus Level 5.0 MG/DL (2.5-4.9) H Magnesium Level 1.7 MG/DL (1.8-2.4) L Total Bilirubin 0.4 MG/DL (0.2-1.0) Aspartate Amino Transf (AST/SGOT) 31 U/L (15-37) Alanine Aminotransferase (ALT/SGPT) 18 U/L (12-78) Alkaline Phosphatase 50 U/L (46-116) Total Protein 7.2 G/DL (6.4-8.2) Albumin 2.7 G/DL (3.4-5.0) L Globulin 4.5 g/dL Albumin/Globulin Ratio 0.6 (1.0-2.7) L Current Medications Medications (Trade) Dose Ordered Sig/Stevan Route PRN Reason Start Time Stop Time Status Last Admin Dose Admin Acetaminophen (Tylenol) 650 mg Q4H PRN ORAL Mild Pain/Temp > 100.5 07/26/17 15:00 08/25/17 14:59 08/04/17 13:53 Al Hydroxide/Mg Hydroxide (Mylanta II) 30 ml Q6H PRN ORAL dyspepsia 07/26/17 07:00 08/25/17 06:59 Carvedilol (Coreg) 3.125 mg EVERY 12 HOURS ORAL 07/28/17 21:00 08/27/17 20:59 08/04/17 08:13 Dextrose (Dextrose 50%) STAT PRN IV Hypoglycemia 07/26/17 07:00 08/25/17 06:59 Folic Acid (Folate) 1 mg DAILY ORAL 07/27/17 09:00 08/26/17 08:59 08/04/17 08:13 Furosemide (Lasix) 40 mg DAILY ORAL 08/03/17 11:45 09/02/17 11:44 08/04/17 08:13 Haloperidol Lactate (Haldol) 10 mg Q6H PRN IM Agitation 07/27/17 13:30 08/26/17 13:29 07/29/17 00:45 Lisinopril (Zestril) 5 mg DAILY ORAL 07/29/17 09:00 08/28/17 08:59 08/04/17 08:13 Lorazepam (Ativan) 2 mg Q6H PRN ORAL For Anxiety 07/31/17 08:30 08/07/17 08:29 08/02/17 00:06 Ondansetron HCl (Zofran) 4 mg Q6H PRN IVP Nausea & Vomiting 07/26/17 07:00 08/25/17 06:59 Polyethylene Glycol (Miralax) 17 gm HSPRN PRN ORAL Constipation 07/26/17 07:00 08/25/17 06:59 Promethazine HCl/ Dextromethorphan (Phenergan DM) 6.25 mg Q6H PRN ORAL For Cough 07/26/17 19:30 08/25/17 19:29 07/27/17 10:21 Risperidone (RisperDAL) 3 mg BID ORAL 08/01/17 09:00 08/31/17 08:59 08/04/17 17:23 Thiamine HCl (Vitamin B1) 100 mg DAILY ORAL 07/27/17 09:00 08/26/17 08:59 08/04/17 08:13 Valproic Acid (Depakene) 750 mg EVERY 12 HOURS ORAL 08/03/17 21:00 09/02/17 20:59 08/04/17 20:43 Height (Feet): 4 Height (Inches): 3.00 Weight (Pounds): 143 General Appearance: alert Evelia Vail M.D. Aug 04, 2017 23:29
--- NOTE | 2017-08-04 23:29 | General Progress Note ---
Assessment/Plan Assessment/Plan bipolar d/o lacks capacity to leave or refuse meds risperdal depakote Subjective Date patient seen: Aug 04, 2017 Neurologic/Psychiatric: Reports: anxiety, depressed, emotional problems Allergies: Coded Allergies: NO KNOWN DRUG ALLERGIES (Unverified Allergy, Unknown, 11/11/14) Objective Last 24 Hour Vital Signs Date Time Temp Pulse Resp B/P (MAP) Pulse Ox O2 Delivery O2 Flow Rate FiO2 08/04/17 20:47 92 106/65 08/04/17 20:00 97.5 92 20 106/65 95 08/04/17 15:44 97.6 94 19 107/63 97 08/04/17 15:44 Room Air 08/04/17 11:44 Room Air 08/04/17 11:44 97.6 90 19 106/68 97 08/04/17 08:13 109/73 08/04/17 08:13 98 109/73 08/04/17 07:55 Room Air 08/04/17 07:55 97.8 98 19 109/73 98 08/04/17 03:34 97.6 90 20 112/75 97 Room Air 08/04/17 03:29 98.5 08/04/17 00:00 98.5 89 20 99/68 96 Room Air Intake and Output 08/03/17 08/04/17 19:00 07:00 Intake Total 560 ml Output Total 500 ml Balance 60 ml Intake Oral 560 ml Output Urine Total 500 ml # Voids 1 2 # Bowel Movements 1 Laboratory Tests 08/04/17 10:00: White Blood Count 3.0L, Red Blood Count 4.44L, Hemoglobin 13.3L, Hematocrit 41.0L, Mean Corpuscular Volume 92, Mean Corpuscular Hemoglobin 29.9, Mean Corpuscular Hemoglobin Concent 32.4, Red Cell Distribution Width 17.5H, Platelet Count 151, Mean Platelet Volume 7.3, Neutrophils (%) (Auto) , Lymphocytes (%) (Auto) , Monocytes (%) (Auto) , Eosinophils (%) (Auto) , Basophils (%) (Auto) , Differential Total Cells Counted 100, Neutrophils % ( Manual) 55, Lymphocytes % (Manual) 35, Monocytes % (Manual) 9, Eosinophils % ( Manual) 1, Basophils % (Manual) 0, Band Neutrophils 0, Platelet Estimate Adequate, Platelet Morphology Normal, Red Blood Cell Morphology Normal, Sodium Level 143, Potassium Level 4.4, Chloride Level 109H, Carbon Dioxide Level 24, Anion Gap 10, Blood Urea Nitrogen 10, Creatinine 0.8, Estimat Glomerular Filtration Rate > 60, Glucose Level 107H, Calcium Level 8.9, Phosphorus Level 5.0H, Magnesium Level 1.7L, Total Bilirubin 0.4, Aspartate Amino Transf (AST/ SGOT) 31, Alanine Aminotransferase (ALT/SGPT) 18, Alkaline Phosphatase 50, Total Protein 7.2, Albumin 2.7L, Globulin 4.5, Albumin/Globulin Ratio 0.6L Height (Feet): 4 Height (Inches): 3.00 Weight (Pounds): 143 General Appearance: no apparent distress, alert, agitated Evelia Vail M.D. Aug 04, 2017 23:29
[2017-08-05] VITALS: BP 113/79
[2017-08-05 04:00] VITALS: BP 100/68
[2017-08-05 06:49] LABS: INR 1.2 (0.9-1.1)
[2017-08-05 07:07] LABS: HEMATOCRIT 40.6 % (42.0-52.0); HEMOGLOBIN 13.3 G/DL (14.2-18.0); MEAN CORPUSCULAR VOLUME 90 FL (80-99); PLATELET COUNT 164 K/UL (150-450); RED BLOOD COUNT 4.49 M/UL (4.70-6.10); RED CELL DISTRIBUTION WIDTH 17.2 % (11.6-14.8); WHITE BLOOD COUNT 2.3 K/UL (4.8-10.8)
[2017-08-05 07:11] LABS: ALANINE AMINOTRANSFERASE 13 U/L (12-78); ALBUMIN 2.7 G/DL (3.4-5.0); ALBUMIN/GLOBULIN RATIO 0.6 (1.0-2.7); ALKALINE PHOSPHATASE 51 U/L (46-116); ANION GAP 13 mmol/L (5-15); ASPARTATE AMINO TRANSFERASE 27 U/L (15-37); BILIRUBIN,TOTAL 0.5 MG/DL (0.2-1.0); BLOOD UREA NITROGEN 10 mg/dL (7-18); CALCIUM 9.1 MG/DL (8.5-10.1); CARBON DIOXIDE 24 MMOL/L (21-32); CHLORIDE 107 MMOL/L (98-107); CREATININE 0.8 MG/DL (0.55-1.30); POTASSIUM 3.7 MMOL/L (3.5-5.1); SODIUM 144 MMOL/L (136-145)
[2017-08-05 07:47] VITALS: BP 110/62
[2017-08-05] MEDS: Furosemide 40mg tab ORAL SCH (08:52)
[2017-08-05] MEDS: Thiamine 100mg tab ORAL SCH (08:52)
[2017-08-05] MEDS: Valproic Acid 250mg/5ml Liquid ORAL SCH (08:53)
[2017-08-05] MEDS: Lisinopril 2.5mg tab ORAL SCH (08:54)
[2017-08-05 11:50] VITALS: BP 112/68
[2017-08-05] MEDS ORDERED: RISPERDAL1 MG ORAL (12:44)
[2017-08-05] MEDS ORDERED: FUROSEMIDE40 MG ORAL (12:44)
[2017-08-05] MEDS ORDERED: VALPROIC ACID250 MG PO (12:44)
--- NOTE | 2017-08-05 13:24 | Internal Med Progress Note ---
Subjective Date of Service: Aug 05, 2017 Physician Name Gordon Romeo Attending Physician Santi Barajas MD Current Medications Medications (Trade) Dose Ordered Sig/Stevan Route PRN Reason Start Time Stop Time Status Last Admin Dose Admin Acetaminophen (Tylenol) 650 mg Q4H PRN ORAL Mild Pain/Temp > 100.5 07/26/17 15:00 08/25/17 14:59 08/05/17 11:36 Al Hydroxide/Mg Hydroxide (Mylanta II) 30 ml Q6H PRN ORAL dyspepsia 07/26/17 07:00 08/25/17 06:59 Carvedilol (Coreg) 3.125 mg EVERY 12 HOURS ORAL 07/28/17 21:00 08/27/17 20:59 08/05/17 11:31 Dextrose (Dextrose 50%) STAT PRN IV Hypoglycemia 07/26/17 07:00 08/25/17 06:59 Folic Acid (Folate) 1 mg DAILY ORAL 07/27/17 09:00 08/26/17 08:59 08/05/17 08:52 Furosemide (Lasix) 40 mg DAILY ORAL 08/03/17 11:45 09/02/17 11:44 08/05/17 08:52 Haloperidol Lactate (Haldol) 10 mg Q6H PRN IM Agitation 07/27/17 13:30 08/26/17 13:29 07/29/17 00:45 Lisinopril (Zestril) 5 mg DAILY ORAL 07/29/17 09:00 08/28/17 08:59 08/04/17 08:13 Lorazepam (Ativan) 2 mg Q6H PRN ORAL For Anxiety 07/31/17 08:30 08/07/17 08:29 08/02/17 00:06 Ondansetron HCl (Zofran) 4 mg Q6H PRN IVP Nausea & Vomiting 07/26/17 07:00 08/25/17 06:59 Polyethylene Glycol (Miralax) 17 gm HSPRN PRN ORAL Constipation 07/26/17 07:00 08/25/17 06:59 Promethazine HCl/ Dextromethorphan (Phenergan DM) 6.25 mg Q6H PRN ORAL For Cough 07/26/17 19:30 08/25/17 19:29 2/3/18 10:21 Risperidone (RisperDAL) 3 mg BID ORAL 08/01/17 09:00 08/31/17 08:59 08/05/17 08:52 Thiamine HCl (Vitamin B1) 100 mg DAILY ORAL 07/27/17 09:00 08/26/17 08:59 08/05/17 08:52 Valproic Acid (Depakene) 750 mg EVERY 12 HOURS ORAL 08/03/17 21:00 09/02/17 20:59 08/05/17 08:53 Allergies: Coded Allergies: NO KNOWN DRUG ALLERGIES (Unverified Allergy, Unknown, 11/11/14) ROS Limited/Unobtainable: No Constitutional: Reports: no symptoms HEENT: Reports: no symptoms Cardiovascular: Reports: no symptoms Respiratory: Reports: no symptoms Gastrointestinal/Abdominal: Reports: no symptoms Genitourinary: Reports: no symptoms Neurologic/Psychiatric: Reports: no symptoms Subjective 72 YO M admitted with alcohol abuse and decubitus ulcer. Cover for Int Med-Dr Barajas. Await placement @ SNF Objective Last Vital Signs Date Time Temp Pulse Resp B/P (MAP) Pulse Ox O2 Delivery O2 Flow Rate FiO2 08/05/17 11:50 98.0 96 22 112/68 99 Room Air 07/27/17 08:15 2.0 Laboratory Tests Test 08/05/17 03:55 White Blood Count 2.3 K/UL (4.8-10.8) L Red Blood Count 4.49 M/UL (4.70-6.10) L Hemoglobin 13.3 G/DL (14.2-18.0) L Hematocrit 40.6 % (42.0-52.0) L Mean Corpuscular Volume 90 FL (80-99) Mean Corpuscular Hemoglobin 29.5 PG (27.0-31.0) Mean Corpuscular Hemoglobin Concent 32.6 G/DL (32.0-36.0) Red Cell Distribution Width 17.2 % (11.6-14.8) H Platelet Count 164 K/UL (150-450) Mean Platelet Volume 7.1 FL (6.5-10.1) Neutrophils (%) (Auto) % (45.0-75.0) Lymphocytes (%) (Auto) % (20.0-45.0) Monocytes (%) (Auto) % (1.0-10.0) Eosinophils (%) (Auto) % (0.0-3.0) Basophils (%) (Auto) % (0.0-2.0) Differential Total Cells Counted 100 Neutrophils % (Manual) 29 % (45-75) L Lymphocytes % (Manual) 57 % (20-45) H Monocytes % (Manual) 10 % (1-10) Eosinophils % (Manual) 4 % (0-3) H Basophils % (Manual) 0 % (0-2) Band Neutrophils 0 % (0-8) Platelet Estimate Adequate Platelet Morphology Normal Anisocytosis 1+ Prothrombin Time 12.7 SEC (9.30-11.50) H Prothromb Time International Ratio 1.2 (0.9-1.1) H Activated Partial Thromboplast Time 31 SEC (23-33) Sodium Level 144 MMOL/L (136-145) Potassium Level 3.7 MMOL/L (3.5-5.1) Chloride Level 107 MMOL/L (98-107) Carbon Dioxide Level 24 MMOL/L (21-32) Anion Gap 13 mmol/L (5-15) Blood Urea Nitrogen 10 mg/dL (7-18) Creatinine 0.8 MG/DL (0.55-1.30) Estimat Glomerular Filtration Rate > 60 mL/min (>60) Glucose Level 93 MG/DL (74-106) Calcium Level 9.1 MG/DL (8.5-10.1) Phosphorus Level 5.0 MG/DL (2.5-4.9) H Magnesium Level 1.7 MG/DL (1.8-2.4) L Total Bilirubin 0.5 MG/DL (0.2-1.0) Aspartate Amino Transf (AST/SGOT) 27 U/L (15-37) Alanine Aminotransferase (ALT/SGPT) 13 U/L (12-78) Alkaline Phosphatase 51 U/L (46-116) Total Protein 7.4 G/DL (6.4-8.2) Albumin 2.7 G/DL (3.4-5.0) L Globulin 4.7 g/dL Albumin/Globulin Ratio 0.6 (1.0-2.7) L Intake and Output 08/04/17 08/05/17 19:00 07:00 Intake Total 620 ml Output Total 600 ml Balance 20 ml Intake Oral 620 ml Output Urine Total 600 ml # Voids 1 3 # Bowel Movements 1 Objective General Appearance: WD/WN, no apparent distress, alert EENT: PERRL/EOMI, normal ENT inspection Neck: non-tender, normal alignment, supple, normal inspection Cardiovascular: normal peripheral pulses, normal rate, regular rhythm, no gallop/murmur, no JVD Respiratory/Chest: chest wall non-tender, lungs clear, normal breath sounds, no respiratory distress, no accessory muscle use Abdomen: normal bowel sounds, non tender, soft, no organomegaly, no mass Genitourinary/Rectal: other - scrotal swelling right Extremities: Bilat above the knee amputation; normal range of motion 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 (2) Right hydrocele Assessment & Plan: See scrotal ultrasound (3) Scrotal edema Assessment & Plan: Right Hydrocoele. Await urology consult. (4) Alcohol abuse Assessment & Plan: See psych eval (5) Decubitus skin ulcer Assessment & Plan: Wound care (6) S/P AKA (above knee amputation) bilateral (7) CHF (congestive heart failure) Assessment & Plan: EF=30-35%. See cardiology note. (8) Cardiomyopathy Assessment & Plan: ?Ischemic vs alcohol? See cardiology note. Assessment/Plan Discharge planning: [facility] GORDON ROMEO Aug 05, 2017 13:24
--- NOTE | 2017-08-05 14:30 | Pulmonology Progress Note ---
Assessment/Plan Problems: (1) Pleural effusion (2) Acute encephalopathy (3) Decubitus skin ulcer (4) Alcohol abuse (5) Scrotal edema (6) Cardiomyopathy (7) S/P AKA (above knee amputation) bilateral Assessment/Plan dc planning doing better no new complains on diuretics, change to PO check electrolytes pt agreed to go to skilled nursing wound care symptomatic treatment wants to go home Subjective ROS Limited/Unobtainable: No Allergies: Coded Allergies: NO KNOWN DRUG ALLERGIES (Unverified Allergy, Unknown, 11/11/14) Objective Last 24 Hour Vital Signs Date Time Temp Pulse Resp B/P (MAP) Pulse Ox O2 Delivery O2 Flow Rate FiO2 08/05/17 12:35 98.0 08/05/17 11:50 98.0 96 22 112/68 99 Room Air 08/05/17 11:31 94 123/71 08/05/17 08:54 110/62 08/05/17 07:47 97.8 96 21 110/62 99 Room Air 08/05/17 04:00 97.3 58 21 100/68 100 08/05/17 00:00 97.3 87 20 113/79 96 08/04/17 20:47 92 106/65 08/04/17 20:00 97.5 92 20 106/65 95 08/04/17 15:44 97.6 94 19 107/63 97 08/04/17 15:44 Room Air Intake and Output 08/04/17 08/05/17 19:00 07:00 Intake Total 620 ml Output Total 600 ml Balance 20 ml Intake Oral 620 ml Output Urine Total 600 ml # Voids 1 3 # Bowel Movements 1 Objective General Appearance: no apparent distress, alert, poor eye contact HEENT: normocephalic, atraumatic, anicteric, mucous membranes moist Neck: non-tender, normal alignment, supple Respiratory/Chest: lungs clear, no respiratory distress, no accessory muscle use Cardiovascular/Chest: normal peripheral pulses, normal rate, no JVD Abdomen: normal bowel sounds, non tender, soft Extremities: aka, 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, responsive, 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 Laboratory Tests 08/05/17 03:55: White Blood Count 2.3L, Red Blood Count 4.49L, Hemoglobin 13.3L, Hematocrit 40.6L, Mean Corpuscular Volume 90, Mean Corpuscular Hemoglobin 29.5, Mean Corpuscular Hemoglobin Concent 32.6, Red Cell Distribution Width 17.2H, Platelet Count 164, Mean Platelet Volume 7.1, Neutrophils (%) (Auto) , Lymphocytes (%) (Auto) , Monocytes (%) (Auto) , Eosinophils (%) (Auto) , Basophils (%) (Auto) , Differential Total Cells Counted 100, Neutrophils % ( Manual) 29L, Lymphocytes % (Manual) 57H, Monocytes % (Manual) 10, Eosinophils % (Manual) 4H, Basophils % (Manual) 0, Band Neutrophils 0, Platelet Estimate Adequate, Platelet Morphology Normal, Anisocytosis 1+, Prothrombin Time 12.7H, Prothromb Time International Ratio 1.2H, Activated Partial Thromboplast Time 31 , Sodium Level 144, Potassium Level 3.7, Chloride Level 107, Carbon Dioxide Level 24, Anion Gap 13, Blood Urea Nitrogen 10, Creatinine 0.8, Estimat Glomerular Filtration Rate > 60, Glucose Level 93, Calcium Level 9.1, Phosphorus Level 5.0H, Magnesium Level 1.7L, Total Bilirubin 0.5, Aspartate Amino Transf (AST/SGOT) 27, Alanine Aminotransferase (ALT/SGPT) 13, Alkaline Phosphatase 51, Total Protein 7.4, Albumin 2.7L, Globulin 4.7, Albumin/Globulin Ratio 0.6L Current Medications Medications (Trade) Dose Ordered Sig/Stevan Route PRN Reason Start Time Stop Time Status Last Admin Dose Admin Acetaminophen (Tylenol) 650 mg Q4H PRN ORAL Mild Pain/Temp > 100.5 07/26/17 15:00 08/25/17 14:59 08/05/17 11:36 Al Hydroxide/Mg Hydroxide (Mylanta II) 30 ml Q6H PRN ORAL dyspepsia 07/26/17 07:00 08/25/17 06:59 Carvedilol (Coreg) 3.125 mg EVERY 12 HOURS ORAL 07/28/17 21:00 08/27/17 20:59 08/05/17 11:31 Dextrose (Dextrose 50%) STAT PRN IV Hypoglycemia 07/26/17 07:00 08/25/17 06:59 Folic Acid (Folate) 1 mg DAILY ORAL 07/27/17 09:00 08/26/17 08:59 08/05/17 08:52 Furosemide (Lasix) 40 mg DAILY ORAL 08/03/17 11:45 09/02/17 11:44 08/05/17 08:52 Haloperidol Lactate (Haldol) 10 mg Q6H PRN IM Agitation 07/27/17 13:30 08/26/17 13:29 07/29/17 00:45 Lisinopril (Zestril) 5 mg DAILY ORAL 07/29/17 09:00 08/28/17 08:59 08/04/17 08:13 Lorazepam (Ativan) 2 mg Q6H PRN ORAL For Anxiety 07/31/17 08:30 08/07/17 08:29 08/02/17 00:06 Ondansetron HCl (Zofran) 4 mg Q6H PRN IVP Nausea & Vomiting 07/26/17 07:00 08/25/17 06:59 Polyethylene Glycol (Miralax) 17 gm HSPRN PRN ORAL Constipation 07/26/17 07:00 08/25/17 06:59 Promethazine HCl/ Dextromethorphan (Phenergan DM) 6.25 mg Q6H PRN ORAL For Cough 07/26/17 19:30 08/25/17 19:29 07/27/17 10:21 Risperidone (RisperDAL) 3 mg BID ORAL 08/01/17 09:00 08/31/17 08:59 08/05/17 08:52 Thiamine HCl (Vitamin B1) 100 mg DAILY ORAL 07/27/17 09:00 08/26/17 08:59 08/05/17 08:52 Valproic Acid (Depakene) 750 mg EVERY 12 HOURS ORAL 08/03/17 21:00 09/02/17 20:59 08/05/17 08:53 RAJANI JACOBS Aug 05, 2017 14:30
[2017-08-05 16:00] VITALS: BP 117/80
[2017-08-05] MEDS ORDERED: Tubing IV Secondary IV ONE (17:27)
--- NOTE | 2017-08-05 19:45 | Progress Note ---
DATE: 08/05/2017 SUBJECTIVE: The patient continues to be on one-to-one. The patient has episodes of agitation, presents with anxiety, agitation, forgetfulness, and disorganized. MENTAL STATUS EXAMINATION: The patient is alert and oriented times self and place, does not know the date. Mood is irritable and anxious. Affect is constricted, congruent with mood. Thought process is disorganized. Thought content, positive for delusions. No suicidal or homicidal ideation. Cognition is impaired. ASSESSMENT: 1. Bipolar disorder. 2. 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 PLAN: 1. We will continue the Depakote 500 mg b.i.d. 2. Continue the Haldol p.r.n. 3. We will continue to follow and readjust the medications. Evelia Vail M.D. DR: CLAUDETTE JOB#: [id number] CC:
--- NOTE | 2017-08-07 10:19 | Discharge Summary ---
Discharge Summary Hospital Course Date of Admission Jul 26, 2017 at 04:57 Date of Discharge Aug 05, 2017 at 17:28 Admitting Diagnosis ENCEPHALOPATHY,ALTERED MENTAL STATUS HPI Eugenio Crespo is a 72 year old male who was admitted on Jul 26, 2017 at 04:57 for Encephalopathy,Altered Mental Status Hospital Course dc summary #[id number] Discharge Medications New Medications: Valproic Acid (Valproic Acid) 250 Mg Capsule 750 MG PO EVERY 12 HOURS for 30 Days, CAP Carvedilol (Coreg) 3.125 Mg Tablet 3.125 MG ORAL EVERY 12 HOURS for 30 Days, TAB Divalproex Sodium (Divalproex Sodium) 500 Mg Tablet.dr 750 MG ORAL EVERY 12 HOURS for 30 Days, TAB Furosemide* (Lasix*) 40 Mg Tablet 40 MG ORAL DAILY for 30 Days, TAB Lisinopril (Lisinopril*) 5 Mg Tablet 5 MG ORAL DAILY for 30 Days, TAB Lorazepam* (Ativan*) 1 Mg Tablet 2 MG ORAL Q6H PRN for 30 Days, TAB Risperidone* (Risperdal*) 1 Mg Tablet 2 MG ORAL BID for 30 Days, TAB Risperidone* (Risperdal*) 1 Mg Tablet 3 MG ORAL BID for 60 Days, TAB Discharge Condition Upon Discharge: stable Discharge Disposition Patient was discharged to SNF/Subacute Facility(03) Discharge Diagnoses: Danny (Vanctamela)Megan NP Aug 07, 2017 10:19
--- NOTE | 2017-08-07 23:00 | Discharge Summary 2 SIG ---
DATE OF ADMISSION: 07/26/2017 DATE OF DISCHARGE: 08/05/2017 REASON FOR ADMISSION: 72 years old male with past medical history of peripheral vascular disease, bilateral amputee, alcohol dependency, and schizophrenia, presented with increased pain in decubitus ulcer area. The patient denied fevers, chills. He also reported enlarged scrotum, no acute bleeding. Upon evaluation in the emergency room, the patient noted to be tachycardic- 130, blood pressure - 162/93. The patient was intoxicated. Serum alcohol level was 78. No leukocytosis. Stable hemoglobin and hematocrit. Stable electrolytes. Elevated AST -61, ALT- 29. Initial chest x-ray revealed congestive heart failure with cardiomegaly and bilateral interstitial and airspace edema. The patient was admitted with diagnosis of acute encephalopathy, alcohol intoxication/abuse, scrotal edema, and decubitus ulcer. HOSPITAL COURSE: The patient admitted to med/surg floor. Psychiatry evaluation was requested. Per psychiatrist, the patient lacks capacity to leave or refuse medications. Psychiatric medication regimen was optimized. The patient was diagnosed with schizophrenia and bipolar disorder as well as alcohol dependency and dementia due to alcohol dependency. Echocardiogram revealed ejection fraction of 30% to 35%, right ventricular systolic pressure of 60, global left ventricular hypokinesis. Cardiology evaluation subsequently was requested. Per cardiology, patient with congestive heart failure on admission. The patient started on medical management for systolic heart failure with diuretic, beta-nitish, and OLGA inhibitor. 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 Further workup as to ischemic versus nonischemic cardiomyopathy can be done as outpatient as per Cardiology. Initial chest x-ray revealed congestive heart failure with cardiomegaly and bilateral interstitial and airspace edema. Follow up chest x-ray showed no significant changes. Testicular ultrasound revealed right hydrocele and small bilateral varicocele. Urine toxicology screen was positive for opiate. Due to alcohol dependency/abuse, thiamine and folic acid were added to existing regimen. The patient was counseled on abstinence from the alcohol. Electrolytes and renal parameters were closely monitored. Electrolytes were corrected as needed. Pain management provided. Wound care nurse seen the patient for sacral decubitus ulcer, stage III, present on admission. DVT prophylaxis provided. Acute encephalopathy on admission was due to alcohol intoxication . Ammonia level was stable. Infectious Disease doctor seen and evaluated the patient. The patient had no evidence of infection, no leukocytosis, no fever. Decubitus ulcer superficial, no signs of infection. Sacral and groin wound culture were both polymicrobial, likely colonization, no evidence of infection. Infectious Disease recommended to continue monitor the patient off antibiotic and provide wound care. Surgical evaluation was requested for evaluation of decubitus ulcer. The patient on presentation very aggressive, not cooperative, and poor historian. Per surgeon, the patient had skin breakdown with epidermis sloughing off, no dermal tissues, no signs or symptoms of infection. The patient was wheelchair bound, did not cooperate with wound care or instructions. Surgeon recommended keep pressure of wounds and turn q.2 hours. perinatal social worker was involved in planning placement for this patient. Place was found in [facility]. The patient was stable for discharge. FINAL DIAGNOSES: 1. Acute toxic metabolic encephalopathy ( due to alcohol intoxication). 2. Alcohol abuse with dependency. 3. Scrotal edema. 4. Right hydrocele. 5. 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 Systolic heart failure. 7. Severe pulmonary hypertension. 8. Sacral stage I decubitus ulcer, present on admission. 9. Peripheral vascular disease. 10. Bilateral above knee amputation. 11. Schizophrenia. 12. Bipolar disorder. 13. Obesity. 14. Dementia due to alcohol dependency DISCHARGE MEDICATIONS: See medication reconciliation list. DISCHARGE INSTRUCTIONS: The patient was discharged to assisted living. Follow up with medical doctor at the facility. Santi Barajas M.D. - [facility]New[facility]Or[facility] NMinPMin DR: ANNA JOB#: [id number] CC: PHYLLIS
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
== END 2017-08-05 17:28 | disposition home or self-care (01) | DRG 194 ==
LOC: EDBD 03:13 → EMR 03:35 → EDBEDREQ 04:45 → 4E 04:57 → EDBEDREQ 09:40 → 4E 07-27 15:26
DX: I50.9 Heart failure, unspecified (principal); G92 Toxic encephalopathy; L89.151 Pressure ulcer of sacral region, stage 1; I50.20 Unspecified systolic (congestive) heart failure; I42.9 Cardiomyopathy, unspecified; I27.20 Pulmonary hypertension, unspecified; N50.89 Other specified disorders of the male genital organs; N43.3 Hydrocele, unspecified; Z89.611 Acquired absence of right leg above knee; Z89.612 Acquired absence of left leg above knee; F31.9 Bipolar disorder, unspecified; Z59.0 Homelessness; F17.200 Nicotine dependence, unspecified, uncomplicated; F20.9 Schizophrenia, unspecified; F10.20 Alcohol dependence, uncomplicated; I73.9 Peripheral vascular disease, unspecified; E66.9 Obesity, unspecified; Z99.3 Dependence on wheelchair; V29.9XXS Motorcycle rider (driver) (passenger) injured in unspecified traffic accident, sequela; I34.0 Nonrheumatic mitral (valve) insufficiency; I36.1 Nonrheumatic tricuspid (valve) insufficiency; R45.1 Restlessness and agitation
CPT/HCPCS: 36415; 71045; 76870; 80048; 80053; 80061; 80307; 80329; 82140; 83735; 83880; 84100; 84443; 85007; 85025; 85610; 85730; 87070; 87081; 87181; 87205; 93005; 93306; 99285; J8499

== ENCOUNTER 2017-08-07 08:59 | Emergency (ER) | payer MEDICAID ==
[~2017-08-07] VITALS: Ht 121.9 cm; Wt 45.4 kg
[~2017-08-07 08:59] MED LIST: ATIVAN1 MG ORAL; COREG3.125 MG ORAL; DIVALPROEX SOD500 MG ORAL; FUROSEMIDE40 MG ORAL; LISINOPRIL5 MG ORAL; RISPERDAL1 MG ORAL; VALPROIC ACID250 MG PO
[2017-08-07 09:16] VITALS: BP 127/72
[2017-08-07 10:32] LABS: ANION GAP 7 mmol/L (5-15); BLOOD UREA NITROGEN 7 mg/dL (7-18); CALCIUM 8.8 MG/DL (8.5-10.1); CARBON DIOXIDE 27 MMOL/L (21-32); CHLORIDE 105 MMOL/L (98-107); CREATININE 0.5 MG/DL (0.55-1.30); POTASSIUM 4.2 MMOL/L (3.5-5.1); SODIUM 139 MMOL/L (136-145)
[2017-08-07 10:37] LABS: ALANINE AMINOTRANSFERASE 15 U/L (12-78); ALBUMIN 2.8 G/DL (3.4-5.0); ALBUMIN/GLOBULIN RATIO 0.5 (1.0-2.7); ALKALINE PHOSPHATASE 54 U/L (46-116); ASPARTATE AMINO TRANSFERASE 44 U/L (15-37); BILIRUBIN,TOTAL 0.4 MG/DL (0.2-1.0); CREATINE KINASE 130 U/L (26-308)
[2017-08-07 11:38] LABS: APPEARANCE,URINE CLEAR; BILIRUBIN, URINE NEGATIVE (NEGATIVE); GLUCOSE, URINE (UA) NEGATIVE (NEGATIVE); KETONES,URINE NEGATIVE (NEGATIVE); LEUKOCYTE ESTERASE ,URINE NEGATIVE (NEGATIVE); NITRITE,URINE NEGATIVE (NEGATIVE); PH,URINE 8 (4.5-8.0); PROTEIN,URINE NEGATIVE (NEGATIVE); UROBILINOGEN,URINE 1 MG/DL (0.0-1.0)
[2017-08-07 11:38] LABS: HEMATOCRIT 45.4 % (42.0-52.0); HEMOGLOBIN 14.8 G/DL (14.2-18.0); MEAN CORPUSCULAR VOLUME 91 FL (80-99); PLATELET COUNT 191 K/UL (150-450); RED BLOOD COUNT 5.01 M/UL (4.70-6.10); RED CELL DISTRIBUTION WIDTH 16.8 % (11.6-14.8); WHITE BLOOD COUNT 3.3 K/UL (4.8-10.8)
[2017-08-07 11:40] LABS: COLOR,URINE YELLOW
--- NOTE | 2017-08-07 11:42 | Diagnostic Imaging Report ---
Indication: Dyspnea Comparison: 07/29/2017 A single view chest radiograph was obtained. Findings: Interstitial edema demonstrated with evidence of a right pleural effusion and cardiomegaly. Findings appear slightly improved since the last occasion. IMPRESSION: Mild to moderate CHF. Small right pleural effusion
--- NOTE | 2017-08-07 11:42 | Diagnostic Imaging Report ---
Indication: Abdominal pain Comparison: None Single view of the abdomen obtained Findings: Bowel gas pattern is nonspecific. No mass, ectopic calcifications, or abnormal gas collections are identified. The bones are unremarkable. Impression: No acute findings
[2017-08-07 11:44] LABS: INR 1.2 (0.9-1.1)
[2017-08-07 12:24] VITALS: BP 111/73
--- NOTE | 2017-08-07 13:53 | Emergency Room Report ---
History of Present Illness General Chief Complaint: Pain Source: Patient, EMS Present Illness HPI The patient complains of abdominal pain. He was picked up on the streets by EMS. He is in a wheelchair because of the above-knee amputations bilaterally. Is complaining about generalized abdominal pain. He states it's 10/10 and constant. Denies any vomiting or diarrhea. Denies dysuria. No fevers. The patient was discharged from a hospital 2 days ago. He states that no one at the facility is attending to him and that sick patients are all around him. This is why he left the Assisted Living. Apparently, difficult to find appropriate d/c during hospitalization. H/O schizophrenia and bipolar disorder. No cough, URI sy, chest pain, joint pain. D/C diagnoses: 1. Acute toxic metabolic encephalopathy. 2. Alcohol abuse with dependency. 3. Scrotal edema. 4. Right hydrocele. 5. Cardiomyopathy with ejection fraction 30% to 35%, systolic heart failure. 6. Severe pulmonary hypertension. 7. Sacral stage I decubitus ulcer, present on admission. 8. Peripheral vascular disease. 9. Bilateral above knee amputation. 10. Schizophrenia. 11. Bipolar disorder. 12. Obesity. Allergies: Coded Allergies: NO KNOWN DRUG ALLERGIES (Unverified Allergy, Unknown, 11/11/14) Patient History Past Medical History: see triage record Past Surgical History: other - alexa Payne Social History: Reports: alcohol use - prior Social History Narrative [facility] Reviewed Nursing Documentation: PMH: Agreed, PSxH: Agreed Nursing Documentation-PMH Past Medical History: No Stated History Hx Cardiac Problems: No Hx Hypertension: No Hx Pacemaker: No Hx Asthma: No Hx COPD: No Hx Diabetes: No Hx Cancer: No Hx Gastrointestinal Problems: No Hx Dialysis: No Hx Neurological Problems: No Hx Cerebrovascular Accident: No Hx Seizures: No Review of Systems All Other Systems: negative except mentioned in HPI Physical Exam Vital Signs Date Time Temp Pulse Resp B/P (MAP) Pulse Ox O2 Delivery O2 Flow Rate FiO2 08/07/17 08:59 110 20 120/72 98 Room Air 08/07/17 12:24 98.0 98.0 Sp02 EP Interpretation: reviewed, normal General Appearance: well appearing, no apparent distress, GCS 15 Head: normocephalic Eyes: bilateral eye normal inspection ENT: moist mucus membranes Neck: supple Respiratory: lungs clear, normal breath sounds Cardiovascular #1: regular rate, rhythm Cardiovascular #2: 2+ radial (R) Gastrointestinal: normal inspection, normal bowel sounds, non tender, no mass, non-distended Genitourinary: normal inspection Musculoskeletal: back normal, other - AKA bilaterally 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, motor strength/tone normal, speech normal, oriented - X2 Psychiatric: other - perseveration, obstinant about care Skin: warm/dry, other - decubitus - sacral Medical Decision Making Diagnostic Impression: Primary Impression: CHF (congestive heart failure) Qualified Codes: I50.9 - Heart failure, unspecified Additional Impressions: S/P AKA (above knee amputation) bilateral Abdominal pain Qualified Codes: R10.84 - Generalized abdominal pain Schizophrenia Qualified Codes: F20.9 - Schizophrenia, unspecified ER Course Patient presents with abdominal pain and questionable living situation. Ddx: GERD, PU, gstritis, divertiuclitis amongst others. Evaluation with EKG, CXR, abd film and labs. Treatment with IV hydration. Analgesics ordered. Difficulty trying to evaluate patient as refusing EKG, labs. Convinced to allow so we can help him. EKG without injury. CXR with chf, mild-mod. Abd NSBGP. Labs with normal WBC, H/H. Elevated BNP. Patient states pain resolved with tylenol. Lasix given for x-ray. As apparent discharge failure and abd pain unknown etiology, admit med, Drs. Barajas and Akin. Lead Scientist arranged for patient to go back to Assisted Living. Apparently he agreed to go also. Concern as last discharge was similar and patient was on streets in wheelchair. Followed by psychiatrist outpatient. Abdominal pain resolved. Clinically, physically, patient stable for outpatient observation and treatment. Laboratory Tests Test 08/07/17 09:54 08/07/17 11:20 08/07/17 11:25 Sodium Level 139 MMOL/L (136-145) Potassium Level 4.2 MMOL/L (3.5-5.1) Chloride Level 105 MMOL/L (98-107) Carbon Dioxide Level 27 MMOL/L (21-32) Anion Gap 7 mmol/L (5-15) Blood Urea Nitrogen 7 mg/dL (7-18) Creatinine 0.5 MG/DL (0.55-1.30) L Estimate Glomerular Filtration Rate > 60 mL/min (>60) Glucose Level 124 MG/DL (74-106) H Calcium Level 8.8 MG/DL (8.5-10.1) Total Bilirubin 0.4 MG/DL (0.2-1.0) Aspartate Amino Transferase (AST) 44 U/L (15-37) H Alanine Aminotransferase (ALT) 15 U/L (12-78) Alkaline Phosphatase 54 U/L (46-116) Total Creatine Kinase 130 U/L (26-308) Troponin I 0.026 ng/mL (0.000-0.056) Pro-B-Type Natriuretic Peptide 3019 pg/mL (0-125) H Total Protein 8.2 G/DL (6.4-8.2) Albumin 2.8 G/DL (3.4-5.0) L Globulin 5.4 g/dL Albumin/Globulin Ratio 0.5 (1.0-2.7) L Lipase 103 U/L (73-393) Urine Color Yellow Urine Appearance Clear Urine pH 8 (4.5-8.0) Urine Specific [place] 1.010 (1.005-1.035) Urine Protein Negative (NEGATIVE) Urine Glucose (UA) Negative (NEGATIVE) Urine Ketones Negative (NEGATIVE) Urine Occult Blood Negative (NEGATIVE) Urine Nitrite Negative (NEGATIVE) Urine Bilirubin Negative (NEGATIVE) Urine Urobilinogen 1 MG/DL (0.0-1.0) H Urine Leukocyte Esterase Negative (NEGATIVE) White Blood Count 3.3 K/UL (4.8-10.8) L Red Blood Count 5.01 M/UL (4.70-6.10) Hemoglobin 14.8 G/DL (14.2-18.0) Hematocrit 45.4 % (42.0-52.0) Mean Corpuscular Volume 91 FL (80-99) Mean Corpuscular Hemoglobin 29.7 PG (27.0-31.0) Mean Corpuscular Hemoglobin Concent 32.7 G/DL (32.0-36.0) Red Cell Distribution Width 16.8 % (11.6-14.8) H Platelet Count 191 K/UL (150-450) Mean Platelet Volume 8.6 FL (6.5-10.1) Neutrophils (%) (Auto) % (45.0-75.0) Lymphocytes (%) (Auto) % (20.0-45.0) Monocytes (%) (Auto) % (1.0-10.0) Eosinophils (%) (Auto) % (0.0-3.0) Basophils (%) (Auto) % (0.0-2.0) Differential Total Cells Counted 100 Neutrophils % (Manual) 61 % (45-75) Lymphocytes % (Manual) 26 % (20-45) Monocytes % (Manual) 9 % (1-10) Eosinophils % (Manual) 4 % (0-3) H Basophils % (Manual) 0 % (0-2) Band Neutrophils 0 % (0-8) Platelet Estimate Adequate Platelet Morphology Normal Anisocytosis 1+ Prothrombin Time 12.6 SEC (9.30-11.50) H Prothrombin Time INR 1.2 (0.9-1.1) H PTT 30 SEC (23-33) EKG Diagnostic Results Rate: tachycardiac ST Segments: no acute changes Rhythm Strip Diag. Results EP Interpretation: yes Rhythm: no PVC's, no ectopy, other - tachycardia Chest X-Ray Diagnostic Results Chest X-Ray Diagnostic Results : Chest X-Ray Ordered: Yes # of Views/Limited/Complete: 1 View Indication: Other Interpretation: no effusion, no pneumothorax, other - CHF Impression: Other Electronically Signed by: Electronically signed by Maximus Jennings MD Other X-Ray Diagnostic Results Other X-Ray Diagnostic Results : X-Ray ordered: abd # of Views/Limited Vs Complete: 1 View Indication: Pain EP Interpretation: Yes Interpretation: nonspecific bowel gas, no sbo, other - no masses Impression: No acute disease Electronically Signed by: Maximus Jennings MD Last Vital Signs Date Time Temp Pulse Resp B/P (MAP) Pulse Ox O2 Delivery O2 Flow Rate FiO2 08/07/17 20:08 98.0 102 18 114/70 98 Room Air 98.0 Status: improved Disposition: ASSISTED LIVING Condition: Improved Scripts Acetaminophen (Tylenol) 325 Mg Tablet 650 MG ORAL Q6H Y for Prn Pain/Headache/Temp > 101, #20 TAB 0 Refills Prov: Maximus Jennings M.D. 08/07/17 Referrals: NON PHYSICIAN (PCP) Maximus Jennings M.D. Aug 07, 2017 13:53
[2017-08-07 14:47] VITALS: BP 113/69
[2017-08-07] MEDS ORDERED: UNOBMED (15:18)
[2017-08-07] MEDS ORDERED: TYLENOL325 MG ORAL (15:51)
[2017-08-07 18:20] VITALS: BP 114/70
[2017-08-07 20:08] VITALS: BP 114/70
--- NOTE | 2017-08-07 21:50 | Consultation ---
History of Present Illness General Date patient seen: Aug 07, 2017 Chief Complaint: Pain Present Illness Allergies: Coded Allergies: NO KNOWN DRUG ALLERGIES (Unverified Allergy, Unknown, 11/11/14) Medication History Scheduled Carvedilol (Coreg), 3.125 MG ORAL EVERY 12 HOURS Divalproex Sodium (Divalproex Sodium), 750 MG ORAL EVERY 12 HOURS Furosemide* (Lasix*), 40 MG ORAL DAILY Lisinopril (Lisinopril*), 5 MG ORAL DAILY Risperidone* (Risperdal*), 2 MG ORAL BID Risperidone* (Risperdal*), 3 MG ORAL BID Valproic Acid (Valproic Acid), 750 MG PO EVERY 12 HOURS Scheduled PRN Acetaminophen (Tylenol), 650 MG ORAL Q6H PRN for Prn Pain/Headache/Temp > 101 Lorazepam* (Ativan*), 2 MG ORAL Q6H PRN Miscellaneous Medications Unable to Obtain Medications (Unable To Obtain Meds), (Reported) Patient History History Provided By: Patient, Medical Record, PMD Healthcare decision maker Resuscitation status Advanced Directive on File Past Medical/Surgical History Past Medical/Surgical History: (1) Acute encephalopathy (2) Agitation (3) Right hydrocele (4) Cardiomyopathy (5) Pleural effusion (6) Arm pain (7) Altered mental state (8) Pain (9) Decubitus ulcer of sacral region, stage 1 (10) CHF (congestive heart failure) Review of Systems Psychiatric: Reports: prior hx, anxiety, depressed feelings, emotional problems , hallucinations Physical Exam General Appearance: no apparent distress, alert, confused, agitated 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, disoriented, depressed affect Last 24 Hour Vital Signs Date Time Temp Pulse Resp B/P (MAP) Pulse Ox O2 Delivery O2 Flow Rate FiO2 08/07/17 20:08 98.0 102 18 114/70 98 Room Air 98.0 08/07/17 18:20 102 18 114/70 98 Room Air 08/07/17 14:47 98.0 107 19 113/69 96 Room Air 98.0 08/07/17 12:24 98.0 105 17 111/73 95 Room Air 98.0 08/07/17 09:16 110 18 127/72 98 Room Air 08/07/17 08:59 110 20 120/72 98 Room Air Laboratory Tests Test 08/07/17 09:54 08/07/17 11:20 08/07/17 11:25 Sodium Level 139 MMOL/L (136-145) Potassium Level 4.2 MMOL/L (3.5-5.1) Chloride Level 105 MMOL/L (98-107) Carbon Dioxide Level 27 MMOL/L (21-32) Anion Gap 7 mmol/L (5-15) Blood Urea Nitrogen 7 mg/dL (7-18) Creatinine 0.5 MG/DL (0.55-1.30) L Estimat Glomerular Filtration Rate > 60 mL/min (>60) Glucose Level 124 MG/DL (74-106) H Calcium Level 8.8 MG/DL (8.5-10.1) Total Bilirubin 0.4 MG/DL (0.2-1.0) Aspartate Amino Transf (AST/SGOT) 44 U/L (15-37) H Alanine Aminotransferase (ALT/SGPT) 15 U/L (12-78) Alkaline Phosphatase 54 U/L (46-116) Total Creatine Kinase 130 U/L (26-308) Troponin I 0.026 ng/mL (0.000-0.056) Pro-B-Type Natriuretic Peptide 3019 pg/mL (0-125) H Total Protein 8.2 G/DL (6.4-8.2) Albumin 2.8 G/DL (3.4-5.0) L Globulin 5.4 g/dL Albumin/Globulin Ratio 0.5 (1.0-2.7) L Lipase 103 U/L (73-393) Urine Color Yellow Urine Appearance Clear Urine pH 8 (4.5-8.0) Urine Specific [place] 1.010 (1.005-1.035) Urine Protein Negative (NEGATIVE) Urine Glucose (UA) Negative (NEGATIVE) Urine Ketones Negative (NEGATIVE) Urine Occult Blood Negative (NEGATIVE) Urine Nitrite Negative (NEGATIVE) Urine Bilirubin Negative (NEGATIVE) Urine Urobilinogen 1 MG/DL (0.0-1.0) H Urine Leukocyte Esterase Negative (NEGATIVE) White Blood Count 3.3 K/UL (4.8-10.8) L Red Blood Count 5.01 M/UL (4.70-6.10) Hemoglobin 14.8 G/DL (14.2-18.0) Hematocrit 45.4 % (42.0-52.0) Mean Corpuscular Volume 91 FL (80-99) Mean Corpuscular Hemoglobin 29.7 PG (27.0-31.0) Mean Corpuscular Hemoglobin Concent 32.7 G/DL (32.0-36.0) Red Cell Distribution Width 16.8 % (11.6-14.8) H Platelet Count 191 K/UL (150-450) Mean Platelet Volume 8.6 FL (6.5-10.1) Neutrophils (%) (Auto) % (45.0-75.0) Lymphocytes (%) (Auto) % (20.0-45.0) Monocytes (%) (Auto) % (1.0-10.0) Eosinophils (%) (Auto) % (0.0-3.0) Basophils (%) (Auto) % (0.0-2.0) Differential Total Cells Counted 100 Neutrophils % (Manual) 61 % (45-75) Lymphocytes % (Manual) 26 % (20-45) Monocytes % (Manual) 9 % (1-10) Eosinophils % (Manual) 4 % (0-3) H Basophils % (Manual) 0 % (0-2) Band Neutrophils 0 % (0-8) Platelet Estimate Adequate Platelet Morphology Normal Anisocytosis 1+ Prothrombin Time 12.6 SEC (9.30-11.50) H Prothromb Time International Ratio 1.2 (0.9-1.1) H Activated Partial Thromboplast Time 30 SEC (23-33) Height (Feet): 4 Weight (Pounds): 100 Assessment/Plan Status: stable Evelia Vail M.D. Aug 07, 2017 21:49
--- NOTE | 2017-08-08 12:58 | Cardiology Report ---
APPROVED REPORT EKG Measurement Heart [id number] Sinus tachycardia Anterior infarct, age undetermined Abnormal ECG
== END 2017-08-07 20:09 | disposition home or self-care (01) ==
LOC: EDBD 08:59 → EMR 09:50 → EDBEDREQ 15:15 → CMPBEDREQ 15:47 → EMR 20:09
DX: I50.9 Heart failure, unspecified (principal); R10.84 Generalized abdominal pain; Z89.611 Acquired absence of right leg above knee; Z89.612 Acquired absence of left leg above knee; Z99.3 Dependence on wheelchair; J90 Pleural effusion, not elsewhere classified; F20.9 Schizophrenia, unspecified
CPT/HCPCS: 36415; 71045; 74018; 80053; 81003; 82550; 83690; 83880; 84484; 85007; 85025; 85610; 85730; 87081; 93005; 96361; 96374; 99284; J1940

== ENCOUNTER 2017-10-14 23:59 | Inpatient (IN) | payer MEDICARE, MEDICAID ==
[~2017-10-14] VITALS: Ht 121.9 cm; Wt 49.9 kg
[~2017-10-14 23:59] MED LIST changes: +TYLENOL325 MG ORAL; +UNOBMED
[2017-10-15] VITALS (11 sets, daily range): BP systolic 53–116; BP diastolic 27–72
[2017-10-15 01:19] LABS: HEMATOCRIT 31.2 % (42.0-52.0); HEMOGLOBIN 10.5 G/DL (14.2-18.0); MEAN CORPUSCULAR VOLUME 90 FL (80-99); PLATELET COUNT 22 K/UL (150-450); RED BLOOD COUNT 3.46 M/UL (4.70-6.10); RED CELL DISTRIBUTION WIDTH 19.1 % (11.6-14.8); WHITE BLOOD COUNT 16.7 K/UL (4.8-10.8)
--- NOTE | 2017-10-15 01:25 | Emergency Room Report ---
History of Present Illness General Chief Complaint: Altered Level of Consciousness Source: Medical Record, EMS, PMD Present Illness HPI This is a unfortunate 72-year-old male who has bilateral AKA. He was recently homeless but placed in a halfway this for a couple months ago. He presents with chief complaint of altered mental status. Increasing drainage from his sacral decubitus. Also in rest or distress and was hypotensive. Unable to get any history from this patient because of his condition. History is through the halfway note and EMS. Also through medical record. Allergies: Coded Allergies: NO KNOWN DRUG ALLERGIES (Unverified Allergy, Unknown, 11/11/14) Patient History Past Medical History: see triage record, old chart reviewed Past Surgical History: other Pertinent Family History: none Social History: Denies: smoking Immunizations: other Reviewed Nursing Documentation: PMH: Agreed; PSxH: Agreed Nursing Documentation-PMH Past Medical History: No History, Except For Hx Cardiac Problems: Yes - Heart Failure Hx Hypertension: Yes Hx Pacemaker: No Hx Asthma: No Hx COPD: No Hx Diabetes: No Hx Cancer: No Hx Gastrointestinal Problems: No Hx Dialysis: No History Of Psychiatric Problem: Yes - Schizophrenia, Bipolar Hx Neurological Problems: No Hx Cerebrovascular Accident: No Hx Seizures: No Review of Systems Constitutional: Reports: weakness All Other Systems: limited - secondary to condition. Physical Exam Vital Signs Date Time Temp Pulse Resp B/P (MAP) Pulse Ox O2 Delivery O2 Flow Rate FiO2 10/14/17 23:57 93.7 91 24 55/41 94 Room Air 93.7 10/15/17 00:59 8.0 vitals showed hypotension and hypothermia General Appearance: severe distress, cachetic, Chronically Ill, Stupor Head: normocephalic, atraumatic Eyes: bilateral eye PERRL ENT: dry mucus membranes Neck: normal inspection Respiratory: respiratory distress, decreased breath sounds, accessory muscle use Cardiovascular #1: normal inspection, normal peripheral pulses Gastrointestinal: soft Rectal: other - large decubital sacral ulcer measuring about 15 cm. large central eschar. very "floppy" and flunctuant. foul odorous dc. Musculoskeletal: other - b/l AKA Neurologic: other - w/d to pain Skin: other - poor turgor Procedures Critical Care Time Critical Care Time Critical care is mandated in this patient who presented with septic shock from infected ulcer. Patient require my urgent intervention to attenuate the risks of metabolic collapse which may lead to cardiovascular collapse and . Critical care time is 35 minutes excluding any reportable procedure. Critical care time included evaluation, multiple reevaluation, looking at old charts, interpreting laboratory and diagnostic data, discussing case with patient and family and consultants, and charting. Incision and Drainage Incision and Drainage : Consent: Verbal Site: sacrum Blade Size: 11 Wound Location: other - sacrum Wound Length (cm): 15 Patient Tolerated: Well Complications: None Progress I made a 5 cm incision over the eschar. There was foul odorous fluid draining. I also removed some necrotic decaying tissue. Culture sent. Central Line Central Line : Consent: Emergent Central Line Lumen: triple Maximal Sterile Barrier Tech: yes cap, yes mask, yes sterile gown, yes sterile gloves, yes large sterile sheet, yes hand hygiene, yes chlorhexidine prep Central Line Postion: femoral (R) Complications: none Central Line Post Position: sutured, good blood return Attempts: One Patient Tolerated: Well Complications: None Progress Patient has no IV access. I place a right femoral central line under sterile condition using ultrasound. No complications. Medical Decision Making Diagnostic Impression: Primary Impression: Septic shock Additional Impressions: Decubital ulcer Qualified Codes: L89.154 - Pressure ulcer of sacral region, stage 4 Abscess of sacrum ARF (acute renal failure) Qualified Codes: N17.9 - Acute kidney failure, unspecified Hyperosmolar non-ketotic state in patient with type 2 diabetes mellitus Toxic metabolic encephalopathy ER Course This unfortunate male presents with septic shock. Blood pressure better after IV fluid. Antibiotic started. The source is from his decubital ulcer in the sacral area. He has necrotic tissue in that area. Will admit to [facility] for IV fluid and antibiotics. I place a central line in him because he has no IV access. I discussed the case with Dr. Gerardo who will admit. Lab Results Impression labs with leukocytosis, and lactic acidosis EKG Diagnostic Results Rate: normal Rhythm: NSR ST Segments: no acute changes Rhythm Strip Diag. Results Rhythm Strip Time: 01:25 EP Interpretation: yes Rate: 84 Rhythm: NSR, no PVC's, no ectopy Chest X-Ray Diagnostic Results Chest X-Ray Diagnostic Results : Chest X-Ray Ordered: Yes # of Views/Limited/Complete: 1 View Indication: Shortness of Breath EP Interpretation: Yes Interpretation: no consolidation, no effusion, no pneumothorax, no acute cardiopulmonary disease Impression: No acute disease Electronically Signed by: Patric Banegas MD Last Vital Signs Date Time Temp Pulse Resp B/P (MAP) Pulse Ox O2 Delivery O2 Flow Rate FiO2 10/15/17 00:59 93.7 91 24 53/27 96 Simple Mask 8.0 93.7 Status: improved Disposition: ADMITTED INPATIENT Condition: Critical Referrals: Janel Lynch MD (PCP) PATRIC BANEGAS M.D. Oct 15, 2017 01:25
[2017-10-15 01:34] LABS: ANION GAP 24 mmol/L (5-15); BLOOD UREA NITROGEN 133 mg/dL (7-18); CALCIUM 7.8 MG/DL (8.5-10.1); CARBON DIOXIDE 16 MMOL/L (21-32); CHLORIDE 96 MMOL/L (98-107); CREATININE 2.3 MG/DL (0.55-1.30); POTASSIUM 4.7 MMOL/L (3.5-5.1); SODIUM 136 MMOL/L (136-145)
[2017-10-15 01:40] LABS: ALANINE AMINOTRANSFERASE 28 U/L (12-78); ALBUMIN 1.2 G/DL (3.4-5.0); ALBUMIN/GLOBULIN RATIO 0.2 (1.0-2.7); ALKALINE PHOSPHATASE 116 U/L (46-116); ASPARTATE AMINO TRANSFERASE 69 U/L (15-37); BILIRUBIN,TOTAL 0.6 MG/DL (0.2-1.0); CKMB 22.6 NG/ML (0.0-3.6); CREATINE KINASE 817 U/L (26-308)
[2017-10-15] MEDS ORDERED: HYDROCODON-ACE1 EA15 ORAL (02:14)
[2017-10-15] MEDS ORDERED: KLONOPIN1 MG ORAL (02:14)
[2017-10-15 02:41] LABS: APPEARANCE,URINE CLEAR; BILIRUBIN, URINE 1+ (NEGATIVE); COLOR,URINE AMBER; GLUCOSE, URINE (UA) 3+ (NEGATIVE); KETONES,URINE NEGATIVE (NEGATIVE); LEUKOCYTE ESTERASE ,URINE 1+ (NEGATIVE); NITRITE,URINE NEGATIVE (NEGATIVE); PH,URINE 5 (4.5-8.0); PROTEIN,URINE 2+ (NEGATIVE); UROBILINOGEN,URINE 8 MG/DL (0.0-1.0)
[2017-10-15] MEDS ORDERED: Ertapenem 1 GM in NS 55 ML IVPB ONE (03:45)
[2017-10-15] MEDS: Norco 5mg/325mg tab ORAL SCH ×2 (06:00→12:00)
[2017-10-15] MEDS ORDERED: Morphine Sulfate 4mg/ml Inj IVP PRN ×2 (07:15→13:00)
[2017-10-15] MEDS ORDERED: Albuterol/Ipratropium 3ml neb HHN PRN (07:15)
[2017-10-15] MEDS ORDERED: Miralax 17gm pkt ORAL PRN (07:15)
[2017-10-15] MEDS ORDERED: Nitroglycerin Subl 0.4mg tab SL PRN (07:45)
[2017-10-15] MEDS ORDERED: Vancomycin 1gm/D5W 275ml IVPB ONE ×2 (09:00)
[2017-10-15] MEDS ORDERED: Furosemide 40mg tab ORAL SCH (09:00)
[2017-10-15] MEDS ORDERED: Cefepime HCl 2 GM in D5W 110 ML IV SCH (09:00)
[2017-10-15] MEDS ORDERED: Depakote ER 250mg tab ORAL SCH (09:00)
[2017-10-15] MEDS ORDERED: Heparin 5000 units/ml inj SUBQ SCH (09:00)
[2017-10-15 09:30] LABS: INR 1.6 (0.9-1.1)
[2017-10-15 09:56] LABS: CREATINE KINASE 1177 U/L (26-308)
--- NOTE | 2017-10-15 10:18 | History and Physical ---
History of Present Illness General Date patient seen: Oct 15, 2017 Reason for Hospitalization: Altered Level of Consciousness Present Illness HPI 72 year old male with hx of systolic heart failure, bilateral AKA, DM, ETOH abuse and cirrhosis, psychiatric disorder, noncompliant, brought in to ER for evaluation of ALOC and hypotension. Pt was found to be septic with ATN and hyperosmolar. Pt was started on iv fluids and antibiotics and admitted to [facility]. He looks cachectic, chronically ill. Allergies: Coded Allergies: NO KNOWN DRUG ALLERGIES (Unverified Allergy, Unknown, 11/11/14) Medication History Scheduled Carvedilol (Coreg), 3.125 MG ORAL EVERY 12 HOURS Clonazepam* (Klonopin*), 1 MG ORAL BEDTIME, (Reported) Divalproex Sodium (Divalproex Sodium), 750 MG ORAL EVERY 12 HOURS Furosemide* (Lasix*), 40 MG ORAL DAILY Lisinopril (Lisinopril*), 5 MG ORAL DAILY Risperidone* (Risperdal*), 2 MG ORAL BID Risperidone* (Risperdal*), 3 MG ORAL BID Valproic Acid (Valproic Acid), 750 MG PO EVERY 12 HOURS Scheduled PRN Acetaminophen (Tylenol), 650 MG ORAL Q6H PRN for Prn Pain/Headache/Temp > 101 Hydrocodone/Acetaminophen 5-325* (Hydrocodone/Acetaminophen 5-325*), 1 TAB ORAL Q4H PRN for For Pain, (Reported) Lorazepam* (Ativan*), 2 MG ORAL Q6H PRN Miscellaneous Medications Unable to Obtain Medications (Unable To Obtain Meds), (Reported) Patient History Healthcare decision maker Resuscitation status Do Not Resuscitate Advanced Directive on File Yes Past Medical/Surgical History Past Medical/Surgical History: (1) S/P AKA (above knee amputation) bilateral (2) Decubital ulcer (3) Schizophrenia Review of Systems Constitutional: Reports: fever, malaise, weakness All Other Systems: negative except mentioned in HPI Physical Exam General Appearance: cachetic Lines, tubes and drains: peripheral HEENT: normocephalic, atraumatic Neck: non-tender, normal alignment Respiratory/Chest: chest wall non-tender, lungs clear, normal breath sounds Breasts: no masses Cardiovascular/Chest: normal peripheral pulses, normal rate, regular rhythm Abdomen: normal bowel sounds, non tender, soft, no organomegaly Extremities: normal range of motion, non-tender Skin Exam: normal pigmentation Last 24 Hour Vital Signs Date Time Temp Pulse Resp B/P (MAP) Pulse Ox O2 Delivery O2 Flow Rate FiO2 10/15/17 09:45 96.6 77 20 97/47 94 Venturi Mask 55 96.6 10/15/17 08:00 96.0 76 20 78/46 94 Venturi Mask 55 96.0 10/15/17 05:47 68 18 Venturi Mask 14.0 55 10/15/17 05:47 Venturi Mask 14.0 55 10/15/17 05:47 99 Venturi Mask 14.0 55 10/15/17 04:00 97.4 83 28 90/58 100 97.4 10/15/17 03:58 93.7 84 20 116/69 100 Simple Mask 7.0 93.7 10/15/17 03:55 93.7 84 20 116/69 100 Simple Mask 7.0 93.7 10/15/17 03:15 93.7 83 20 103/55 100 Simple Mask 7.0 93.7 10/15/17 01:42 93.7 83 19 87/72 97 Simple Mask 7.0 93.7 10/15/17 01:20 93.7 85 19 63/34 100 Simple Mask 7.0 93.7 10/15/17 00:59 93.7 91 24 53/27 96 Simple Mask 8.0 93.7 10/14/17 23:57 93.7 91 24 55/41 94 Room Air 93.7 Intake and Output 10/14/17 10/15/17 19:00 07:00 Intake Total 2000 ml Output Total 160 ml Balance 1840 ml Intake Oral 0 ml IV Total 2000 ml Output Urine Total 160 ml # Bowel Movements 1 Laboratory Tests Test 10/15/17 00:30 10/15/17 02:20 10/15/17 02:30 10/15/17 09:00 White Blood Count 16.7 K/UL (4.8-10.8) H Red Blood Count 3.46 M/UL (4.70-6.10) L Hemoglobin 10.5 G/DL (14.2-18.0) L Hematocrit 31.2 % (42.0-52.0) L Mean Corpuscular Volume 90 FL (80-99) Mean Corpuscular Hemoglobin 30.2 PG (27.0-31.0) Mean Corpuscular Hemoglobin Concent 33.5 G/DL (32.0-36.0) Red Cell Distribution Width 19.1 % (11.6-14.8) H Platelet Count 22 K/UL (150-450) L Mean Platelet Volume 12.0 FL (6.5-10.1) H Neutrophils (%) (Auto) % (45.0-75.0) Lymphocytes (%) (Auto) % (20.0-45.0) Monocytes (%) (Auto) % (1.0-10.0) Eosinophils (%) (Auto) % (0.0-3.0) Basophils (%) (Auto) % (0.0-2.0) Sodium Level 136 MMOL/L (136-145) Potassium Level 4.7 MMOL/L (3.5-5.1) Chloride Level 96 MMOL/L (98-107) L Carbon Dioxide Level 16 MMOL/L (21-32) L Anion Gap 24 mmol/L (5-15) H Blood Urea Nitrogen 133 mg/dL (7-18) H Creatinine 2.3 MG/DL (0.55-1.30) H Estimat Glomerular Filtration Rate 34.3 mL/min (>60) Glucose Level 928 MG/DL (74-106) *H Lactic Acid Level 7.10 mmol/L (0.66-2.22) H 7.50 mmol/L (0.66-2.22) H Calcium Level 7.8 MG/DL (8.5-10.1) L Total Bilirubin 0.6 MG/DL (0.2-1.0) Aspartate Amino Transf (AST/SGOT) 69 U/L (15-37) H Alanine Aminotransferase (ALT/SGPT) 28 U/L (12-78) Alkaline Phosphatase 116 U/L (46-116) Total Creatine Kinase 817 U/L (26-308) H 1177 U/L (26-308) H Creatine Kinase MB 22.6 NG/ML (0.0-3.6) H Creatine Kinase MB Relative Index 2.7 Troponin I 0.004 ng/mL (0.000-0.056) Total Protein 6.9 G/DL (6.4-8.2) Albumin 1.2 G/DL (3.4-5.0) L Globulin 5.7 g/dL Albumin/Globulin Ratio 0.2 (1.0-2.7) L Urine Color Aileen Urine Appearance Clear Urine pH 5 (4.5-8.0) Urine Specific [place] 1.020 (1.005-1.035) Urine Protein 2+ (NEGATIVE) H Urine Glucose (UA) 3+ (NEGATIVE) H Urine Ketones Negative (NEGATIVE) Urine Occult Blood 1+ (NEGATIVE) H Urine Nitrite Negative (NEGATIVE) Urine Bilirubin 1+ (NEGATIVE) H Urine Ictotest Positive Urine Urobilinogen 8 MG/DL (0.0-1.0) H Urine Leukocyte Esterase 1+ (NEGATIVE) H Urine RBC 0-2 /HPF (0 - 0) H Urine WBC 0-2 /HPF (0 - 0) Urine Squamous Epithelial Cells Many /LPF (NONE/OCC) H Urine Bacteria Few /HPF (NONE) Prothrombin Time 16.8 SEC (9.30-11.50) H Prothromb Time International Ratio 1.6 (0.9-1.1) H Activated Partial Thromboplast Time 51 SEC (23-33) H Uric Acid 14.0 MG/DL (2.6-7.2) H Height (Feet): 4 Weight (Pounds): 110 Medications Current Medications Medications (Trade) Dose Ordered Sig/Stevan Route PRN Reason Start Time Stop Time Status Last Admin Dose Admin Acetaminophen (Tylenol) 650 mg Q4H PRN ORAL T>100.5F 10/15/17 07:15 11/14/17 07:14 Acetaminophen/ Hydrocodone Bitart ([place] 5/325) 1 tab Q6H ORAL 10/15/17 06:00 10/22/17 05:59 Albuterol/ Ipratropium (Albuterol/ Ipratropium) 3 ml Q4H PRN HHN Shortness of Breath 10/15/17 07:15 10/20/17 07:14 Cefepime HCl 1 gm/ Dextrose 55 ml @ 110 mls/hr Q24H IVPB 10/15/17 11:00 10/22/17 10:59 Clonazepam (KlonoPIN) 1 mg BEDTIME ORAL 10/15/17 21:00 10/22/17 20:59 Dextrose (Dextrose 50%) 25 ml PRN IV hypoglycemia 10/15/17 08:00 11/14/17 07:59 Dextrose (Dextrose 50%) 50 ml PRN IV hypoglycemia 10/15/17 08:00 11/14/17 07:59 Divalproex Sodium (Depakote ER) 750 mg TWICE A DAY ORAL 10/15/17 09:00 11/14/17 08:59 Insulin Aspart (NovoLOG) BEFORE MEALS AND HS SUBQ 10/15/17 11:30 11/14/17 11:29 Morphine Sulfate (Morphine Sulfate) 2 mg Q4H PRN IVP BREAKTHROUGH PAIN 4-10 10/15/17 07:15 10/22/17 07:14 Nitroglycerin (Ntg) 0.4 mg Q5MIN X 3 DOSES PRN SL Prn Chest Pain 10/15/17 07:45 11/14/17 07:44 Ondansetron HCl (Zofran) 4 mg Q6H PRN IVP Nausea & Vomiting 10/15/17 07:15 11/14/17 07:14 Phytonadione 10 mg/Dextrose 56 ml @ 112 mls/hr ONCE ONCE IVPB 10/15/17 10:15 10/15/17 10:44 UNV Polyethylene Glycol (Miralax) 17 gm DAILYPRN PRN ORAL Constipation 10/15/17 07:15 11/14/17 07:14 Risperidone (RisperDAL) 2 mg TWICE A DAY ORAL 10/15/17 09:00 11/14/17 08:59 Risperidone (RisperDAL) 4 mg BEDTIME ORAL 10/15/17 21:00 11/14/17 20:59 Sodium Chloride 1,000 ml @ 150 mls/hr Q6H40M IV 10/15/17 07:15 11/14/17 07:14 10/15/17 08:05 Vancomycin HCl (Vanco rx to dose) 1 ea DAILY PRN MISC . 10/15/17 08:00 11/14/17 07:59 Vancomycin HCl 1 gm/Dextrose 275 ml @ 183.708 mls/hr ONCE ONCE IVPB 10/15/17 09:00 10/15/17 10:29 10/15/17 09:58 Assessment/Plan Problem List: (1) Septic shock ICD Codes: A41.9 - Sepsis, unspecified organism; R65.21 - Severe sepsis with septic shock SNOMED: 52721344, 48347124 (2) Hyperosmolar non-ketotic state in patient with type 2 diabetes mellitus ICD Codes: E11.01 - Type 2 diabetes mellitus with hyperosmolarity with coma SNOMED: 278354670, 85654408 (3) Toxic metabolic encephalopathy ICD Codes: G92 - Toxic encephalopathy SNOMED: 090028694 (4) ARF (acute renal failure) ICD Codes: N17.9 - Acute kidney failure, unspecified SNOMED: 54061161 Qualifiers: Qualified Codes: N17.9 - Acute kidney failure, unspecified (5) Decubital ulcer ICD Codes: L89.90 - Pressure ulcer of unspecified site, unspecified stage SNOMED: 816782371, 82278141 Qualifiers: Qualified Codes: L89.154 - Pressure ulcer of sacral region, stage 4 (6) S/P AKA (above knee amputation) bilateral ICD Codes: Z89.611 - Acquired absence of right leg above knee; Z89.612 - Acquired absence of left leg above knee SNOMED: 48645878, 899792957 (7) Schizophrenia ICD Codes: F20.9 - Schizophrenia, unspecified SNOMED: 94132824 Assessment/Plan hardin culture iv fluids iv abx vitamin K echo abdominal US to assess the live and severity of cirrhosis. NG tube feeding for now Max Gerardo MD Oct 15, 2017 10:18
--- NOTE | 2017-10-15 10:37 | Diagnostic Imaging Report ---
Indication: Shortness of breath Technique: One view of the chest Comparison: 08/07/2017 Findings: Lungs and pleural spaces are clear. The heart size is normal. Previously demonstrated pleural fluid and pulmonary edema are no longer evident Impression: Negative
[2017-10-15] MEDS ORDERED: Cefepime 1gm/D5W 55ml IVPB SCH ×2 (11:00)
[2017-10-15] MEDS ORDERED: NovoLOG Insulin Flexpen SUBQ SCH ×3 (11:30→16:30)
[2017-10-15] MEDS ORDERED: Phytonadione 10 MG in D5W 55 ML IVPB ONE (12:00)
[2017-10-15] MEDS ORDERED: Norco 5mg/325mg tab ORAL PRN (13:00)
[2017-10-15 13:19] LABS: APPEARANCE,URINE SLIGHTLY CLOUDY; BILIRUBIN, URINE 1+ (NEGATIVE); GLUCOSE, URINE (UA) 2+ (NEGATIVE); KETONES,URINE NEGATIVE (NEGATIVE); LEUKOCYTE ESTERASE ,URINE 1+ (NEGATIVE); NITRITE,URINE NEGATIVE (NEGATIVE); PH,URINE 5 (4.5-8.0); PROTEIN,URINE 2+ (NEGATIVE); UROBILINOGEN,URINE 4 MG/DL (0.0-1.0)
[2017-10-15 13:23] LABS: COLOR,URINE YELLOW
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
--- NOTE | 2017-10-15 13:41 | Cardiology Report ---
APPROVED REPORT EKG Measurement Heart [id number] Normal sinus rhythm Possible Left atrial enlargement Prolonged QT Abnormal ECG
[2017-10-15] MEDS ORDERED: metroNIDAZOLE 500mg tab ORAL SCH (14:00)
--- NOTE | 2017-10-15 14:56 | Consultation ---
Consult Note Consult Note asked to evaluate for renal failure- This is a unfortunate 72-year-old male who has bilateral AKA. He was recently homeless but placed in a [place] [facility] this for a couple months ago. He presents with chief complaint of altered mental status. Increasing drainage from his sacral decubitus. Also in rest or distress and was hypotensive. Unable to get any history from this patient because of his condition. History is through the [place] [facility] note and EMS. Also through medical record. Hx Cardiac Problems: Yes - Heart Failure Hx Hypertension: Yes History Of Psychiatric Problem: Yes - Schizophrenia, Bipolar examined- data reviewed not historian . Assessment/Plan Renal Failure- Sepsis Leukocytosis- DM OOC Elevated CPK , Rhabdo Hypotension- Shock Anemia Plan; Fluids- Albumin Antibuiotics Keep BP and BS in check Urine studies Per Orders JAKY JOSEPH Oct 15, 2017 14:56
--- NOTE | 2017-10-15 14:56 | Diagnostic Imaging Report ---
Indication: Status post nasogastric tube placement Technique: Supine view of the upper abdomen Comparison: 08/07/2017 Findings: There is a nasogastric tube in place, tip which projects at the level of gastric fundus, proximal port projecting at the expected level of the gastroesophageal junction. Visualized bowel gas pattern is unremarkable. Visualized lower lungs are clear Impression: Nasogastric tube in place, proximal port at the gastroesophageal junction. Slight advancement recommended
[2017-10-15] MEDS: Clindamycin 900mg 50 ML IV SCH ×2 (16:46→21:54)
[2017-10-15] MEDS: NovoLOG Insulin Flexpen SUBQ SCH ×3 (17:00→21:53)
[2017-10-15] MEDS: Piperacillin/Tazobactam 3.375 GM in D5W 110 ML IVPB SCH (17:15)
[2017-10-15] MEDS: Depakote 125mg Sprinkles ORAL SCH (18:38)
--- NOTE | 2017-10-15 23:49 | Consultation ---
History of Present Illness General Date patient seen: Oct 15, 2017 Chief Complaint: Altered Level of Consciousness Present Illness HPI 72 year old male with hx of systolic heart failure, bilateral AKA, DM, ETOH abuse and cirrhosis, psychiatric disorder, noncompliant, brought in to ER for evaluation of ALOC and hypotension. the pt was confused and has episodes of agitation Allergies: Coded Allergies: NO KNOWN DRUG ALLERGIES (Unverified Allergy, Unknown, 11/11/14) Medication History Scheduled Carvedilol (Coreg), 3.125 MG ORAL EVERY 12 HOURS Clonazepam* (Klonopin*), 1 MG ORAL BEDTIME, (Reported) Divalproex Sodium (Divalproex Sodium), 750 MG ORAL EVERY 12 HOURS Furosemide* (Lasix*), 40 MG ORAL DAILY Lisinopril (Lisinopril*), 5 MG ORAL DAILY Risperidone* (Risperdal*), 2 MG ORAL BID Risperidone* (Risperdal*), 3 MG ORAL BID Valproic Acid (Valproic Acid), 750 MG PO EVERY 12 HOURS Scheduled PRN Acetaminophen (Tylenol), 650 MG ORAL Q6H PRN for Prn Pain/Headache/Temp > 101 Hydrocodone/Acetaminophen 5-325* (Hydrocodone/Acetaminophen 5-325*), 1 TAB ORAL Q4H PRN for For Pain, (Reported) Lorazepam* (Ativan*), 2 MG ORAL Q6H PRN Miscellaneous Medications Unable to Obtain Medications (Unable To Obtain Meds), (Reported) Patient History Healthcare decision maker Resuscitation status Do Not Resuscitate Advanced Directive on File Yes Review of Systems Psychiatric: Reports: prior hx, depressed feelings Physical Exam General Appearance: no apparent distress, alert, confused Last 24 Hour Vital Signs Date Time Temp Pulse Resp B/P (MAP) Pulse Ox O2 Delivery O2 Flow Rate FiO2 10/15/17 20:00 97.4 91 24 90/45 97 Venturi Mask 14.0 55 97.4 10/15/17 19:05 81 10/15/17 16:00 97.2 97 17 90/47 97 Venturi Mask 55 97.2 10/15/17 16:00 97 10/15/17 12:00 76 10/15/17 12:00 95.0 84 18 82/44 100 Venturi Mask 55 95.0 10/15/17 09:45 96.6 77 20 97/47 94 Venturi Mask 55 96.6 10/15/17 08:00 77 10/15/17 08:00 96.0 76 20 78/46 94 Venturi Mask 55 96.0 10/15/17 05:47 68 18 Venturi Mask 14.0 55 10/15/17 05:47 Venturi Mask 14.0 55 10/15/17 05:47 99 Venturi Mask 14.0 55 10/15/17 04:00 97.4 83 28 90/58 100 97.4 10/15/17 03:58 93.7 84 20 116/69 100 Simple Mask 7.0 93.7 10/15/17 03:55 93.7 84 20 116/69 100 Simple Mask 7.0 93.7 10/15/17 03:15 93.7 83 20 103/55 100 Simple Mask 7.0 93.7 10/15/17 01:42 93.7 83 19 87/72 97 Simple Mask 7.0 93.7 10/15/17 01:20 93.7 85 19 63/34 100 Simple Mask 7.0 93.7 10/15/17 00:59 93.7 91 24 53/27 96 Simple Mask 8.0 93.7 10/14/17 23:57 93.7 91 24 55/41 94 Room Air 93.7 Intake and Output 10/14/17 10/15/17 19:00 07:00 Intake Total 2000 ml Output Total 160 ml Balance 1840 ml Intake Oral 0 ml IV Total 2000 ml Output Urine Total 160 ml # Bowel Movements 1 Laboratory Tests Test 10/15/17 00:30 10/15/17 02:20 10/15/17 02:30 10/15/17 09:00 White Blood Count 16.7 K/UL (4.8-10.8) H Red Blood Count 3.46 M/UL (4.70-6.10) L Hemoglobin 10.5 G/DL (14.2-18.0) L Hematocrit 31.2 % (42.0-52.0) L Mean Corpuscular Volume 90 FL (80-99) Mean Corpuscular Hemoglobin 30.2 PG (27.0-31.0) Mean Corpuscular Hemoglobin Concent 33.5 G/DL (32.0-36.0) Red Cell Distribution Width 19.1 % (11.6-14.8) H Platelet Count 22 K/UL (150-450) L Mean Platelet Volume 12.0 FL (6.5-10.1) H Neutrophils (%) (Auto) % (45.0-75.0) Lymphocytes (%) (Auto) % (20.0-45.0) Monocytes (%) (Auto) % (1.0-10.0) Eosinophils (%) (Auto) % (0.0-3.0) Basophils (%) (Auto) % (0.0-2.0) Sodium Level 136 MMOL/L (136-145) Potassium Level 4.7 MMOL/L (3.5-5.1) Chloride Level 96 MMOL/L (98-107) L Carbon Dioxide Level 16 MMOL/L (21-32) L Anion Gap 24 mmol/L (5-15) H Blood Urea Nitrogen 133 mg/dL (7-18) H Creatinine 2.3 MG/DL (0.55-1.30) H Estimat Glomerular Filtration Rate 34.3 mL/min (>60) Glucose Level 928 MG/DL (74-106) *H Lactic Acid Level 7.10 mmol/L (0.66-2.22) H 7.50 mmol/L (0.66-2.22) H Calcium Level 7.8 MG/DL (8.5-10.1) L Total Bilirubin 0.6 MG/DL (0.2-1.0) Aspartate Amino Transf (AST/SGOT) 69 U/L (15-37) H Alanine Aminotransferase (ALT/SGPT) 28 U/L (12-78) Alkaline Phosphatase 116 U/L (46-116) Total Creatine Kinase 817 U/L (26-308) H 1177 U/L (26-308) H Creatine Kinase MB 22.6 NG/ML (0.0-3.6) H Creatine Kinase MB Relative Index 2.7 Troponin I 0.004 ng/mL (0.000-0.056) Total Protein 6.9 G/DL (6.4-8.2) Albumin 1.2 G/DL (3.4-5.0) L Globulin 5.7 g/dL Albumin/Globulin Ratio 0.2 (1.0-2.7) L Urine Color Aileen Urine Appearance Clear Urine pH 5 (4.5-8.0) Urine Specific [place] 1.020 (1.005-1.035) Urine Protein 2+ (NEGATIVE) H Urine Glucose (UA) 3+ (NEGATIVE) H Urine Ketones Negative (NEGATIVE) Urine Occult Blood 1+ (NEGATIVE) H Urine Nitrite Negative (NEGATIVE) Urine Bilirubin 1+ (NEGATIVE) H Urine Ictotest Positive Urine Urobilinogen 8 MG/DL (0.0-1.0) H Urine Leukocyte Esterase 1+ (NEGATIVE) H Urine RBC 0-2 /HPF (0 - 0) H Urine WBC 0-2 /HPF (0 - 0) Urine Squamous Epithelial Cells Many /LPF (NONE/OCC) H Urine Bacteria Few /HPF (NONE) Prothrombin Time 16.8 SEC (9.30-11.50) H Prothromb Time International Ratio 1.6 (0.9-1.1) H Activated Partial Thromboplast Time 51 SEC (23-33) H Uric Acid 14.0 MG/DL (2.6-7.2) H Test 10/15/17 12:20 Urine Color Yellow Urine Appearance Slightly cloudy Urine pH 5 (4.5-8.0) Urine Specific [place] 1.020 (1.005-1.035) Urine Protein 2+ (NEGATIVE) H Urine Glucose (UA) 2+ (NEGATIVE) H Urine Ketones Negative (NEGATIVE) Urine Occult Blood 1+ (NEGATIVE) H Urine Nitrite Negative (NEGATIVE) Urine Bilirubin 1+ (NEGATIVE) H Urine Ictotest Negative Urine Urobilinogen 4 MG/DL (0.0-1.0) H Urine Leukocyte Esterase 1+ (NEGATIVE) H Urine RBC 2-4 /HPF (0 - 0) H Urine WBC 5-10 /HPF (0 - 0) H Urine Squamous Epithelial Cells Few /LPF (NONE/OCC) Urine Bacteria Few /HPF (NONE) Urine Hyaline Casts 5-10 /LPF (NONE) H Urine Eosinophils None seen Urine Random Sodium < 10 mmol/L (20-110) L Urine Potassium Timed 48 mmol/L (12-62) Microbiology Date/Time Source Procedure Growth Status 10/15/17 18:09 Nasopharynx Influenza Types A,B Antigen (ANA) - Final Complete Height (Feet): 4 Weight (Pounds): 110 Medications Current Medications Medications (Trade) Dose Ordered Sig/Stevan Route PRN Reason Start Time Stop Time Status Last Admin Dose Admin Acetaminophen (Tylenol) 650 mg Q4H PRN ORAL T>100.5F 10/15/17 07:15 11/14/17 07:14 Acetaminophen/ Hydrocodone Bitart ([place] 5/325) 1 tab Q6H PRN ORAL MOSP 10/15/17 13:00 10/22/17 05:59 10/15/17 17:34 Albuterol/ Ipratropium (Albuterol/ Ipratropium) 3 ml Q4H PRN HHN Shortness of Breath 10/15/17 07:15 10/20/17 07:14 Chlorhexidine Gluconate (Xi[place]ara-Hex 2%) 1 applic DAILY@2000 TOPIC 10/16/17 20:00 11/15/17 19:59 Clindamycin HCl/ Dextrose 50 ml @ 100 mls/hr Q8HR IV 10/15/17 16:00 10/22/17 15:59 10/15/17 21:54 Clonazepam (KlonoPIN) 1 mg BEDTIME ORAL 10/15/17 21:00 10/22/17 20:59 10/15/17 21:52 Dextrose (Dextrose 50%) 25 ml STAT PRN IV Hypoglycemia 10/15/17 15:00 11/14/17 14:59 Dextrose (Dextrose 50%) 50 ml STAT PRN IV Hypoglycemia 10/15/17 15:00 11/14/17 14:59 Divalproex Sodium (Depakote Sprinkles) 750 mg TWICE A DAY ORAL 10/15/17 18:00 11/14/17 08:59 10/15/17 18:38 Insulin Aspart (NovoLOG) EVERY 4 HOURS SUBQ 10/15/17 16:30 11/14/17 16:29 10/15/17 21:53 Morphine Sulfate (Morphine Sulfate) 2 mg Q4H PRN IVP Severe Pain (Pain Scale 7-10) 10/15/17 13:00 10/22/17 07:14 Nitroglycerin (Ntg) 0.4 mg Q5MIN X 3 DOSES PRN SL Prn Chest Pain 10/15/17 07:45 11/14/17 07:44 Ondansetron HCl (Zofran) 4 mg Q6H PRN IVP Nausea & Vomiting 10/15/17 07:15 11/14/17 07:14 Piperacillin Sod/ Tazobactam Sod 3.375 gm/Dextrose 110 ml @ 27.5 mls/hr Q12HR@0400,1600 IVPB 10/15/17 16:00 10/22/17 15:59 10/15/17 17:15 Polyethylene Glycol (Miralax) 17 gm DAILYPRN PRN ORAL Constipation 10/15/17 07:15 11/14/17 07:14 Risperidone (RisperDAL) 2 mg TWICE A DAY ORAL 10/15/17 09:00 11/14/17 08:59 10/15/17 17:33 Risperidone (RisperDAL) 4 mg BEDTIME ORAL 10/15/17 21:00 11/14/17 20:59 10/15/17 21:52 Sodium Hypochlorite ([place]'s Half Strength) 1 applic DAILY TOPIC 10/16/17 06:00 11/15/17 05:59 Sodium Chloride 1,000 ml @ 150 mls/hr Q6H40M IV 10/15/17 07:15 11/14/17 07:14 10/15/17 21:17 Vancomycin HCl (Vanco rx to dose) 1 ea DAILY PRN MISC . 10/15/17 08:00 11/14/17 07:59 Assessment/Plan Status: not improved, unchanged Assessment/Plan schizoaffective encephalopathy cont risperdal 2mg qhs Evelia Vail M.D. Oct 15, 2017 23:49
[2017-10-16] VITALS: BP 94/49
[2017-10-16] MEDS ORDERED: Vancomycin 1 GM in D5W 275 ML IV SCH (00:30)
[2017-10-16] MEDS: NovoLOG Insulin Flexpen SUBQ SCH ×6 (01:17→21:25)
[2017-10-16 04:00] VITALS: BP 98/44
[2017-10-16] MEDS: Piperacillin/Tazobactam 3.375 GM in D5W 110 ML IVPB SCH ×2 (04:07→17:50)
[2017-10-16 04:45] LABS: HEMATOCRIT 25.8 % (42.0-52.0); HEMOGLOBIN 8.9 G/DL (14.2-18.0); MEAN CORPUSCULAR VOLUME 86 FL (80-99); PLATELET COUNT 31 K/UL (150-450); RED BLOOD COUNT 2.99 M/UL (4.70-6.10); RED CELL DISTRIBUTION WIDTH 18.7 % (11.6-14.8); WHITE BLOOD COUNT 14.9 K/UL (4.8-10.8)
[2017-10-16 05:11] LABS: PHOSPHORUS 3.5 MG/DL (2.5-4.9)
[2017-10-16 05:25] LABS: INR 1.3 (0.9-1.1)
[2017-10-16] MEDS: Clindamycin 900mg 50 ML IV SCH ×3 (06:05→22:48)
[2017-10-16] MEDS: Dakin's 0.25% (Half Strength) 16oz TOPIC SCH ×2 (06:05→09:04)
[2017-10-16 06:18] LABS: ALANINE AMINOTRANSFERASE 31 U/L (12-78); ALBUMIN 1.5 G/DL (3.4-5.0); ALBUMIN/GLOBULIN RATIO 0.4 (1.0-2.7); ALKALINE PHOSPHATASE 162 U/L (46-116); ANION GAP 14 mmol/L (5-15); ASPARTATE AMINO TRANSFERASE 78 U/L (15-37); BILIRUBIN,TOTAL 0.8 MG/DL (0.2-1.0); BLOOD UREA NITROGEN 105 mg/dL (7-18); CALCIUM 6.7 MG/DL (8.5-10.1); CARBON DIOXIDE 21 MMOL/L (21-32); CHLORIDE 117 MMOL/L (98-107); CREATININE 1.2 MG/DL (0.55-1.30); SODIUM 152 MMOL/L (136-145)
[2017-10-16 06:37] LABS: CREATINE KINASE 669 U/L (26-308)
[2017-10-16] MEDS ORDERED: Potassium Chloride 10 MEQ in D5W 1000ml 1,000 ML IV SCH (07:00)
[2017-10-16] MEDS ORDERED: D5NS 1,000 ML IV SCH (07:30)
[2017-10-16 08:00] VITALS: BP 79/69
[2017-10-16] MEDS ORDERED: Vancomycin 750mg/NS 250ml 250 ML IVPB SCH (08:00)
[2017-10-16] MEDS ORDERED: Potassium Chloride 40 MEQ in Sodium Chloride 500ML 550 ML IVPB ONE (08:30)
[2017-10-16] MEDS: Depakote 125mg Sprinkles ORAL SCH ×2 (09:03→17:50)
--- NOTE | 2017-10-16 09:53 | Nephrology Progress Note ---
Assessment/Plan Problem List: (1) Septic shock (2) ARF (acute renal failure) (3) Hyperosmolar non-ketotic state in patient with type 2 diabetes mellitus Assessment Renal Failure- Sepsis Leukocytosis- DM OOC Elevated CPK , Rhabdo Hypotension- Shock Anemia HypoAlbuminemia Plan Plan; Fluids- Albumin Antibuiotics Keep BP and BS in check Urine studies Per Orders Subjective ROS Limited/Unobtainable: No Constitutional: Reports: malaise, weakness Objective Objective Last 24 Hour Vital Signs Date Time Temp Pulse Resp B/P (MAP) Pulse Ox O2 Delivery O2 Flow Rate FiO2 10/16/17 08:00 96.4 68 16 79/69 98 Venturi Mask 14.0 55 96.4 10/16/17 08:00 71 10/16/17 04:00 97.4 73 24 98/44 100 Venturi Mask 14.0 55 97.4 10/16/17 03:58 72 10/16/17 00:00 97.7 82 24 94/49 100 Venturi Mask 14.0 55 97.7 10/15/17 23:53 80 10/15/17 20:00 97.4 91 24 90/45 97 Venturi Mask 14.0 55 97.4 10/15/17 19:08 71 20 Venturi Mask 14.0 55 10/15/17 19:08 Venturi Mask 14.0 55 10/15/17 19:08 98 Venturi Mask 14.0 55 10/15/17 19:05 81 10/15/17 16:00 97.2 97 17 90/47 97 Venturi Mask 55 97.2 10/15/17 16:00 97 10/15/17 12:00 76 10/15/17 12:00 95.0 84 18 82/44 100 Venturi Mask 55 95.0 Intake and Output 10/15/17 10/16/17 19:00 07:00 Intake Total 2275.5 ml 1264.4 ml Output Total 400 ml 400 ml Balance 1875.5 ml 864.4 ml Intake Oral 0 ml 0 ml IV Total 2225.5 ml 1264.4 ml Other 50 ml Output Urine Total 400 ml 400 ml Laboratory Tests 10/15/17 12:20: Urine Color Yellow, Urine Appearance Slightly cloudy, Urine pH 5, Urine Specific [place] 1.020, Urine Protein 2+H, Urine Glucose (UA) 2+H, Urine Ketones Negative, Urine Occult Blood 1+H, Urine Nitrite Negative, Urine Bilirubin 1+H, Urine Ictotest Negative, Urine Urobilinogen 4H, Urine Leukocyte Esterase 1+H, Urine RBC 2-4H, Urine WBC 5-10H, Urine Squamous Epithelial Cells Few, Urine Bacteria Few, Urine Hyaline Casts 5-10H, Urine Eosinophils None seen , Urine Random Sodium < 10L, Urine Potassium Timed 48 10/16/17 04:00: White Blood Count 14.9H, Red Blood Count 2.99L, Hemoglobin 8.9L, Hematocrit 25.8L, Mean Corpuscular Volume 86, Mean Corpuscular Hemoglobin 29.7, Mean Corpuscular Hemoglobin Concent 34.4, Red Cell Distribution Width 18.7H, Platelet Count 31L, Mean Platelet Volume 9.4, Neutrophils (%) (Auto) , Lymphocytes (%) (Auto) , Monocytes (%) (Auto) , Eosinophils (%) (Auto) , Basophils (%) (Auto) , Differential Total Cells Counted 100, Neutrophils % ( Manual) 52, Lymphocytes % (Manual) 4L, Monocytes % (Manual) 4, Eosinophils % ( Manual) 1, Basophils % (Manual) 0, Metamyelocytes % 5H, Myelocytes % 1H, Band Neutrophils 33H, Platelet Estimate DecreasedL, Platelet Morphology Normal, Hypochromasia 1+, Anisocytosis 1+, Erythrocyte Sedimentation Rate 92H, Prothrombin Time 13.6H, Prothromb Time International Ratio 1.3H, Activated Partial Thromboplast Time 49H, Sodium Level 152H, Potassium Level 3.0L, Chloride Level 117H, Carbon Dioxide Level 21, Anion Gap 14, Blood Urea Nitrogen 105H, Creatinine 1.2, Estimat Glomerular Filtration Rate > 60, Glucose Level 58# L, Lactic Acid Level 4.90H, Calcium Level 6.7L, Phosphorus Level 3.5, Magnesium Level 2.9H, Total Bilirubin 0.8, Aspartate Amino Transf (AST/SGOT) 78H, Alanine Aminotransferase (ALT/SGPT) 31, Alkaline Phosphatase 162H, Total Creatine Kinase 669H, C-Reactive Protein, Quantitative 24.4H, Total Protein 5.5L, Albumin 1.5L, Globulin 4.0, Albumin/Globulin Ratio 0.4L, Random Vancomycin Level 9.1 Height (Feet): 4 Weight (Pounds): 110 General Appearance: lethargic Cardiovascular: tachycardia Respiratory/Chest: decreased breath sounds Abdomen: distended JAKY JOSEPH Oct 16, 2017 09:53
--- NOTE | 2017-10-16 10:25 | Pulmonology Progress Note ---
Assessment/Plan Problems: (1) Septic shock (2) Hyperosmolar non-ketotic state in patient with type 2 diabetes mellitus (3) Toxic metabolic encephalopathy (4) ARF (acute renal failure) (5) Decubital ulcer (6) S/P AKA (above knee amputation) bilateral (7) Schizophrenia Assessment/Plan change iv fluid to d5w with Kcl bun decreasing cultures are negative so far Blood sugar much better wound care NG tube feeding check electrolytes keep in HERRERA s/p vitamin K. Subjective ROS Limited/Unobtainable: Yes Interval Events: still lethargic Allergies: Coded Allergies: NO KNOWN DRUG ALLERGIES (Unverified Allergy, Unknown, 11/11/14) Objective Last 24 Hour Vital Signs Date Time Temp Pulse Resp B/P (MAP) Pulse Ox O2 Delivery O2 Flow Rate FiO2 10/16/17 08:00 96.4 68 16 79/69 98 Venturi Mask 14.0 55 96.4 10/16/17 08:00 71 10/16/17 04:00 97.4 73 24 98/44 100 Venturi Mask 14.0 55 97.4 10/16/17 03:58 72 10/16/17 00:00 97.7 82 24 94/49 100 Venturi Mask 14.0 55 97.7 10/15/17 23:53 80 10/15/17 20:00 97.4 91 24 90/45 97 Venturi Mask 14.0 55 97.4 10/15/17 19:08 71 20 Venturi Mask 14.0 55 10/15/17 19:08 Venturi Mask 14.0 55 10/15/17 19:08 98 Venturi Mask 14.0 55 10/15/17 19:05 81 10/15/17 16:00 97.2 97 17 90/47 97 Venturi Mask 55 97.2 10/15/17 16:00 97 10/15/17 12:00 76 10/15/17 12:00 95.0 84 18 82/44 100 Venturi Mask 55 95.0 Intake and Output 10/15/17 10/16/17 19:00 07:00 Intake Total 2275.5 ml 1264.4 ml Output Total 400 ml 400 ml Balance 1875.5 ml 864.4 ml Intake Oral 0 ml 0 ml IV Total 2225.5 ml 1264.4 ml Other 50 ml Output Urine Total 400 ml 400 ml General Appearance: cachetic HEENT: normocephalic Respiratory/Chest: chest wall non-tender, lungs clear Cardiovascular: normal peripheral pulses, normal rate Abdomen: normal bowel sounds, soft, non tender Genitourinary: normal external genitalia Extremities: no cyanosis Skin: lesions, ulcers Neurologic/Psychiatric: unresponsiveness Microbiology Date/Time Source Procedure Growth Status 10/15/17 00:40 Blood Blood Culture - Preliminary NO GROWTH AFTER 24 HOURS Resulted 10/15/17 00:25 Blood Blood Culture - Preliminary NO GROWTH AFTER 24 HOURS Resulted 10/15/17 00:30 Other Gram Stain - Final Resulted 10/15/17 00:30 Other Wound Culture Pending Resulted 10/15/17 18:09 Nasopharynx Influenza Types A,B Antigen (ANA) - Final Complete 10/15/17 04:30 Sacral Wound Gram Stain - Final Resulted 10/15/17 04:30 Sacral Wound Wound Culture Pending Resulted Laboratory Tests 10/15/17 12:20: Urine Color Yellow, Urine Appearance Slightly cloudy, Urine pH 5, Urine Specific [place] 1.020, Urine Protein 2+H, Urine Glucose (UA) 2+H, Urine Ketones Negative, Urine Occult Blood 1+H, Urine Nitrite Negative, Urine Bilirubin 1+H, Urine Ictotest Negative, Urine Urobilinogen 4H, Urine Leukocyte Esterase 1+H, Urine RBC 2-4H, Urine WBC 5-10H, Urine Squamous Epithelial Cells Few, Urine Bacteria Few, Urine Hyaline Casts 5-10H, Urine Eosinophils None seen , Urine Random Sodium < 10L, Urine Potassium Timed 48 10/16/17 04:00: White Blood Count 14.9H, Red Blood Count 2.99L, Hemoglobin 8.9L, Hematocrit 25.8L, Mean Corpuscular Volume 86, Mean Corpuscular Hemoglobin 29.7, Mean Corpuscular Hemoglobin Concent 34.4, Red Cell Distribution Width 18.7H, Platelet Count 31L, Mean Platelet Volume 9.4, Neutrophils (%) (Auto) , Lymphocytes (%) (Auto) , Monocytes (%) (Auto) , Eosinophils (%) (Auto) , Basophils (%) (Auto) , Differential Total Cells Counted 100, Neutrophils % ( Manual) 52, Lymphocytes % (Manual) 4L, Monocytes % (Manual) 4, Eosinophils % ( Manual) 1, Basophils % (Manual) 0, Metamyelocytes % 5H, Myelocytes % 1H, Band Neutrophils 33H, Platelet Estimate DecreasedL, Platelet Morphology Normal, Hypochromasia 1+, Anisocytosis 1+, Erythrocyte Sedimentation Rate 92H, Prothrombin Time 13.6H, Prothromb Time International Ratio 1.3H, Activated Partial Thromboplast Time 49H, Sodium Level 152H, Potassium Level 3.0L, Chloride Level 117H, Carbon Dioxide Level 21, Anion Gap 14, Blood Urea Nitrogen 105H, Creatinine 1.2, Estimat Glomerular Filtration Rate > 60, Glucose Level 58# L, Lactic Acid Level 4.90H, Calcium Level 6.7L, Phosphorus Level 3.5, Magnesium Level 2.9H, Total Bilirubin 0.8, Aspartate Amino Transf (AST/SGOT) 78H, Alanine Aminotransferase (ALT/SGPT) 31, Alkaline Phosphatase 162H, Total Creatine Kinase 669H, C-Reactive Protein, Quantitative 24.4H, Total Protein 5.5L, Albumin 1.5L, Globulin 4.0, Albumin/Globulin Ratio 0.4L, Random Vancomycin Level 9.1 Current Medications Medications (Trade) Dose Ordered Sig/Stevan Route PRN Reason Start Time Stop Time Status Last Admin Dose Admin Acetaminophen (Tylenol) 650 mg Q4H PRN ORAL T>100.5F 10/15/17 07:15 11/14/17 07:14 Acetaminophen/ Hydrocodone Bitart ([place] 5/325) 1 tab Q6H PRN ORAL MOSP 10/15/17 13:00 10/22/17 05:59 10/15/17 17:34 Albuterol/ Ipratropium (Albuterol/ Ipratropium) 3 ml Q4H PRN HHN Shortness of Breath 10/15/17 07:15 10/20/17 07:14 Chlorhexidine Gluconate (Xiomara-Hex 2%) 1 applic DAILY@2000 TOPIC 10/16/17 20:00 11/15/17 19:59 Clindamycin HCl/ Dextrose 50 ml @ 100 mls/hr Q8HR IV 10/15/17 16:00 10/22/17 15:59 10/16/17 06:05 Clonazepam (KlonoPIN) 1 mg BEDTIME ORAL 10/15/17 21:00 10/22/17 20:59 10/15/17 21:52 Dextrose (Dextrose 50%) 25 ml STAT PRN IV Hypoglycemia 10/15/17 15:00 11/14/17 14:59 Dextrose (Dextrose 50%) 50 ml STAT PRN IV Hypoglycemia 10/15/17 15:00 11/14/17 14:59 10/16/17 05:12 Dextrose/Sodium Chloride 1,000 ml @ 100 mls/hr Q10H IV 10/17/17 07:30 11/15/17 07:29 UNV Divalproex Sodium (Depakote Sprinkles) 750 mg TWICE A DAY ORAL 10/15/17 18:00 11/14/17 08:59 10/16/17 09:03 Insulin Aspart (NovoLOG) EVERY 4 HOURS SUBQ 10/15/17 16:30 11/14/17 16:29 10/16/17 01:17 Midodrine (Pro-Amatine) 10 mg THREE TIMES A DAY ORAL 10/16/17 13:00 11/15/17 12:59 Morphine Sulfate (Morphine Sulfate) 2 mg Q4H PRN IVP Severe Pain (Pain Scale 7-10) 10/15/17 13:00 10/22/17 07:14 Nitroglycerin (Ntg) 0.4 mg Q5MIN X 3 DOSES PRN SL Prn Chest Pain 10/15/17 07:45 11/14/17 07:44 Ondansetron HCl (Zofran) 4 mg Q6H PRN IVP Nausea & Vomiting 10/15/17 07:15 11/14/17 07:14 Pantoprazole (Protonix) 40 mg EVERY 12 HOURS IVP 10/16/17 10:00 11/15/17 09:59 UNV Piperacillin Sod/ Tazobactam Sod 3.375 gm/Dextrose 110 ml @ 27.5 mls/hr Q12HR@0400,1600 IVPB 10/15/17 16:00 10/22/17 15:59 10/16/17 04:07 Polyethylene Glycol (Miralax) 17 gm DAILYPRN PRN ORAL Constipation 10/15/17 07:15 11/14/17 07:14 Potassium Chloride 40 meq/ Sodium Chloride 570 ml @ 142.5 mls/ hr ONCE ONCE IVPB 10/16/17 08:30 10/16/17 12:29 10/16/17 09:00 Risperidone (RisperDAL) 2 mg TWICE A DAY ORAL 10/15/17 09:00 11/14/17 08:59 10/16/17 09:04 Sodium Hypochlorite (Dakin's Half Strength) 1 applic DAILY TOPIC 10/16/17 06:00 11/15/17 05:59 10/16/17 09:04 Vancomycin HCl (Vanco rx to dose) 1 ea DAILY PRN MISC . 10/15/17 08:00 11/14/17 07:59 Vancomycin HCl 1 gm/Dextrose 275 ml @ 183.708 mls/hr Q24H IVPB 10/17/17 06:00 10/22/17 05:59 Vancomycin/Sodium Chloride 250 ml @ 250 mls/hr ONCE IVPB 10/16/17 08:00 10/21/17 07:59 10/16/17 09:02 Max Gerardo MD Oct 16, 2017 10:25
[2017-10-16] MEDS: Pantoprazole Inj IVP SCH ×2 (10:54→21:23)
[2017-10-16] MEDS: D5NS 1,000 ML IV SCH ×2 (11:04→21:23)
[2017-10-16 11:25] LABS: CHOLESTEROL < 50 MG/DL (< 200); FERRITIN 1208 NG/ML (8-388)
[2017-10-16 11:36] LABS: HDL CHOLESTEROL 6 MG/DL (40-60); TRIGLYCERIDES 44 MG/DL (30-150)
[2017-10-16 11:53] LABS: % IRON SATURATION 12 % (15-50); IRON 19 ug/dL (50-175); TOTAL IRON BINDING CAPACITY 162 ug/dL (250-450)
[2017-10-16 12:00] VITALS: BP 87/44
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
[2017-10-16] MEDS: Midodrine 10mg tab ORAL SCH ×2 (12:57→17:51)
--- NOTE | 2017-10-16 14:28 | Diagnostic Imaging Report ---
Indication: Reason For Exam: NGT Technique: Supine view of the upper abdomen Comparison: 10/15/17 Findings: There is a gastric tube is been retracted, tip at the region of the gastroesophageal junction, side-port in the region of the distal esophagus. Advancement is recommended. Visualized bowel gas pattern is unremarkable. Imaged lung bases are grossly clear. No acute osseous abnormality is identified. Portions of a likely femoral central venous catheter are partially visualized. Correlate clinically. IMPRESSION: Nasogastric tube in place, proximal port at the distal esophagus. Advancement recommended. This was discussed with the patient's treating nurse on 2 W. via telephone conversation at approximately 14:15 on 10/16/2017.
[2017-10-16 16:00] VITALS: BP 83/53
[2017-10-16] MEDS ORDERED: NS 500ML ONE (16:36)
--- NOTE | 2017-10-16 16:45 | Operative Note - Dictated ---
DATE OF OPERATION: 10/16/2017 PREOPERATIVE DIAGNOSIS: Grossly infected necrotic sacral decubitus ulcer with significant necrotic tissue, debris, foul smelling with significant drainage, and stool in wound. POSTOPERATIVE DIAGNOSIS: Grossly infected necrotic sacral decubitus ulcer with significant necrotic tissue, debris, foul smelling with significant drainage, and stool in wound. OPERATION PERFORMED: 1. Excisional debridement of large sacral decubitus ulcer sized 17 cm x 34 cm x 5 cm down to bone. 2. Washout of large sacral decubitus ulcer. ATTENDING SURGEON: Ministerio Jay M.D. BUSINESS DEVELOPMENT OFFICER: Nurses. ANESTHESIA: The patient was given p.r.n. and scheduled medications for comfort. ESTIMATED BLOOD LOSS: Minimal. IV FLUIDS: None. ANESTHESIA: None. SPECIMENS: Decubitus ulcer sent for Gram stain, culture, and pathology. COMPLICATIONS: None. DRAINS: None. IMPLANTS: None. WOUND CLASSIFICATION: Class 4. INDICATIONS FOR PROCEDURE: This is a 72-year-old male, who presented to [facility] for medical care and management at which time, he was noted to have a significant large foul-smelling, uncared for, necrotic draining sacral decubitus ulcer. The patient has a history of bilateral AKAs and since then, he has been bedbound for some time now. The patient is currently encephalopathic, but does deserve a full care. Surgery was called for evaluation of the wound and evaluated the wound. There was a significant amount of necrotic tissue with underlying gangrene, necrosis, infection, stool within the wound, and extending from the sacrum to the right and left buttock almost near the area of the flanks. The wound was extremely uncared for, foul-smelling, and requiring immediate cleaning at the least and debridement of necrotic infected tissues at the minimal amount to allow for any form of proper wound care. Given the patient's condition, he is unable to be consented at this time and unfortunately, no family is on record. Given the above, I strongly felt it necessary to debride and clean his wound given its lack of prior care, its current condition, and its potential for worsening complications of bacteremia, sepsis, necessity of source control, and need for future wound care. Two physicians consent was obtained and procedure was performed at the bedside on 10/16/2017. PROCEDURE NOTE: The patient was made comfortable at the bedside with plans only to clean and debride infected and necrotic portions of the wound without plans for definitive treatment at this time only to allow for cleansing of the wound and future wound care. The patient was placed in the left lateral decubitus position and the left and right buttock and ischial region was cleaned and examined noting the above. Using a #11 scalpel and surgical scissors, a significant portion of the necrotic and infected tissue was excised and debrided. It was not done down to full healthy tissue, but more so to allow for initiation of wound care until demarcation of the areas that actually did need definitive treatment. The wound was cleansed with copious amounts of saline once the necrotic infected tissue was debrided and tracking pockets were identified and evacuated. The wound was noted to extend from the sacrum to the right and left almost flank. When measured, the wound was 34 cm from left to right and 17 to 20 cm from cranial to caudad and approximately 4 to 5 cm deep down to the sacral bone. Around the area of the right buttock, it extended down into the buttock around the anus. Once a reasonable amount of necrotic infected tissue was excised and debridement was performed to a reasonable amount to allow for proper wound care at this time with plans for definitive treatment at a later time once further discussion was had and initial evaluation was completed, we began by packing and dressing the wound with gauze, 4x4s, and anti-pressure dressings. The patient tolerated the procedure well and was made comfortable after all dressings were changed. Foul smell slowly began to improve over the next few hours and the patient tolerated well. Now that we can see the extent of the wound and most of the necrotic and infected tissue are debrided and pockets that were tracking were identified, we can continue with proper wound care until identification of the full extent of the wound for consideration of definitive treatment at a later time if deemed necessary. At this time, it seems like there is a fair amount of source control and the wound is clean, which has significantly improved as compared to prior. We will continue with wound care while in the hospital with directions once the patient leaves as well. Ministerio Jay M.D. DR: MERRILL JOB#: [id number] CC:
[2017-10-16] MEDS ORDERED: NS 275ml ONE (18:26)
[2017-10-16] MEDS ORDERED: Tubing IV Secondary IV ONE (18:26)
--- NOTE | 2017-10-16 19:00 | Consultation ---
DATE OF CONSULTATION: 10/16/2017 ENDOCRINOLOGY CONSULTATION CONSULTING PHYSICIAN: Thomas Olguin M.D. REFERRING PHYSICIAN: Max Gerardo M.D. REASON FOR CONSULTATION: Management of diabetes. HISTORY OF PRESENT ILLNESS: The patient is a 72-year-old male, most of the history is obtained from review of the chart and medical records since the patient is not able to provide any meaningful history. The patient has history of systolic heart failure, bilateral [id number], diabetes, alcohol abuse, cirrhosis, and psychiatric disorder who presented to the hospital with acute loss of consciousness and hypotension, found to be septic, and glucose was as high as 928 with an anion gap of 24. The patient was treated with insulin and IV fluids and gradually the glucose improved. His lactic acid level is 7.5. PAST MEDICAL HISTORY: 1. Diabetes. 2. Above-knee amputation on both sides. 3. Alcohol abuse. 4. Cirrhosis. 5. Psychiatric disorders. ALLERGIES TO MEDICATIONS: None. MEDICATIONS: Medications as an outpatient reviewed and reconciled. REVIEW OF SYSTEMS: Unobtainable. FAMILY HISTORY: Noncontributory. SOCIAL HISTORY: History of alcohol abuse. LABORATORY AND DIAGNOSTIC DATA: CRP of 24.4. Sodium 153, potassium 3, chloride 115, bicarbonate 21, anion gap of 14, BUN 105, creatinine 1.2, glucose of 58. PHYSICAL EXAMINATION: GENERAL: The patient is lethargic. VITAL SIGNS: Blood pressure is 98/44, pulse 73, respiratory rate of 20, temperature 97.4. HEENT: Pupils are equal and reactive to light. NECK: No JVD. HEART: Regular. LUNGS: Decreased breath sounds. ABDOMEN: Positive bowel sounds. EXTREMITIES: Amputations on both legs. DIAGNOSES: 1. Sepsis. 2. Lactic acidosis. 3. Severe acute hyperglycemia. 4. Acute kidney injury. 5. Hypernatremia. PLAN: Continue with IV hydration. Continue with sliding scale insulin every four hours. No need for basal insulin. The patient's blood glucose was low this morning and he is not on any sort of feeding. I will not use any basal insulin or any scheduled insulin. We will follow the blood glucose very carefully and further insulin dose adjustment will be done according to blood glucose values. Thank you, Dr. Gerardo, for the courtesy of this consultation. Thomas Olguin M.D. DR: Obdulia JOB#: [id number] CC:
[2017-10-16 20:00] VITALS: BP 99/57
[2017-10-16] MEDS: Dyna-Hex 2% Top Sol 2oz TOPIC SCH (21:23)
[2017-10-17] VITALS: BP 82/42
[2017-10-17] MEDS: NovoLOG Insulin Flexpen SUBQ SCH ×6 (00:37→20:59)
[2017-10-17] MEDS: Piperacillin/Tazobactam 3.375 GM in D5W 110 ML IVPB SCH ×2 (03:21→16:29)
[2017-10-17] MEDS: D5NS 1,000 ML IV SCH ×2 (03:22→14:02)
[2017-10-17 04:00] VITALS: BP 97/52
[2017-10-17] MEDS: Clindamycin 900mg 50 ML IV SCH ×3 (05:26→21:07)
--- NOTE | 2017-10-17 06:32 | General Progress Note ---
Assessment/Plan Problem List: (1) Diabetes mellitus out of control ICD Codes: E11.65 - Type 2 diabetes mellitus with hyperglycemia SNOMED: 98306906, 117966427 (2) Cardiomyopathy ICD Codes: I42.9 - Cardiomyopathy, unspecified SNOMED: 09472534 (3) Altered mental state ICD Codes: R41.82 - Altered mental status, unspecified SNOMED: 198124153 (4) Schizophrenia ICD Codes: F20.9 - Schizophrenia, unspecified SNOMED: 57951207 (5) S/P AKA (above knee amputation) bilateral ICD Codes: Z89.611 - Acquired absence of right leg above knee; Z89.612 - Acquired absence of left leg above knee SNOMED: 79218666, 197963414 Assessment/Plan add Levemir 10 units bid continue NISS Subjective ROS Limited/Unobtainable: Yes Allergies: Coded Allergies: NO KNOWN DRUG ALLERGIES (Unverified Allergy, Unknown, 11/11/14) Subjective events noted BG elevated Objective Last 24 Hour Vital Signs Date Time Temp Pulse Resp B/P (MAP) Pulse Ox O2 Delivery O2 Flow Rate FiO2 10/17/17 04:00 97.0 51 23 97/52 99 Venturi Mask 14.0 55 97.0 10/17/17 04:00 55 10/17/17 00:00 55 10/17/17 00:00 97.0 55 23 82/42 99 Venturi Mask 14.0 55 97.0 10/16/17 20:00 64 10/16/17 20:00 97 Venturi Mask 14.0 55 10/16/17 20:00 Venturi Mask 14.0 55 10/16/17 20:00 64 18 Venturi Mask 14.0 55 10/16/17 20:00 97.8 64 23 99/57 100 Venturi Mask 14.0 55 97.8 10/16/17 16:00 96.0 72 17 83/53 93 Venturi Mask 14.0 55 96.0 10/16/17 16:00 69 10/16/17 12:00 98.0 76 17 87/44 100 Venturi Mask 14.0 55 98.0 10/16/17 12:00 74 10/16/17 08:00 96.4 68 16 79/69 98 Venturi Mask 14.0 55 96.4 10/16/17 08:00 71 10/16/17 07:30 98 Venturi Mask 14.0 55 10/16/17 07:30 68 20 Venturi Mask 14.0 55 10/16/17 07:30 Venturi Mask 14.0 55 Intake and Output 10/16/17 10/17/17 19:00 07:00 Intake Total 2102.5 ml 1582.0 ml Output Total 525 ml Balance 1577.5 ml 1582.0 ml Free Water 100 ml IV Total 1922.5 ml 1192.0 ml Tube Feeding 80 ml 290 ml Other 100 ml Output Urine Total 525 ml Height (Feet): 4 Weight (Pounds): 110 General Appearance: no apparent distress Neck: normal alignment Cardiovascular: normal rate Respiratory/Chest: decreased breath sounds Abdomen: normal bowel sounds Objective Current Medications Medications (Trade) Dose Ordered Sig/Stevan Route PRN Reason Start Time Stop Time Status Last Admin Dose Admin Acetaminophen (Tylenol) 650 mg Q4H PRN ORAL T>100.5F 10/15/17 07:15 11/14/17 07:14 Acetaminophen/ Hydrocodone Bitart ([place] 5/325) 1 tab Q6H PRN ORAL MOSP 10/15/17 13:00 10/22/17 05:59 10/15/17 17:34 Albuterol/ Ipratropium (Albuterol/ Ipratropium) 3 ml Q4H PRN HHN Shortness of Breath 10/15/17 07:15 10/20/17 07:14 Chlorhexidine Gluconate (Xiomara-Hex 2%) 1 applic DAILY@2000 TOPIC 10/16/17 20:00 11/15/17 19:59 10/16/17 21:23 Clindamycin HCl/ Dextrose 50 ml @ 100 mls/hr Q8HR IV 10/15/17 16:00 10/22/17 15:59 10/17/17 05:26 Clonazepam (KlonoPIN) 1 mg BEDTIME ORAL 10/15/17 21:00 10/22/17 20:59 10/16/17 21:24 Dextrose (Dextrose 50%) 25 ml STAT PRN IV Hypoglycemia 10/15/17 15:00 11/14/17 14:59 Dextrose (Dextrose 50%) 50 ml STAT PRN IV Hypoglycemia 10/15/17 15:00 5/24/18 14:59 10/16/17 05:12 Dextrose/Sodium Chloride 1,000 ml @ 100 mls/hr Q10H IV 10/16/17 10:30 11/15/17 10:29 10/17/17 03:22 Divalproex Sodium (Depakote Sprinkles) 750 mg TWICE A DAY ORAL 10/15/17 18:00 11/14/17 08:59 10/16/17 17:50 Insulin Aspart (NovoLOG) EVERY 4 HOURS SUBQ 10/15/17 16:30 11/14/17 16:29 10/17/17 04:18 Midodrine (Pro-Amatine) 10 mg THREE TIMES A DAY ORAL 10/16/17 13:00 11/15/17 12:59 10/16/17 17:51 Morphine Sulfate (Morphine Sulfate) 2 mg Q4H PRN IVP Severe Pain (Pain Scale 7-10) 10/15/17 13:00 10/22/17 07:14 Nitroglycerin (Ntg) 0.4 mg Q5MIN X 3 DOSES PRN SL Prn Chest Pain 10/15/17 07:45 11/14/17 07:44 Ondansetron HCl (Zofran) 4 mg Q6H PRN IVP Nausea & Vomiting 10/15/17 07:15 11/14/17 07:14 Pantoprazole (Protonix) 40 mg EVERY 12 HOURS IVP 10/16/17 11:00 11/15/17 10:59 10/16/17 21:23 Piperacillin Sod/ Tazobactam Sod 3.375 gm/Dextrose 110 ml @ 27.5 mls/hr Q12HR@0400,1600 IVPB 10/15/17 16:00 10/22/17 15:59 10/17/17 03:21 Polyethylene Glycol (Miralax) 17 gm DAILYPRN PRN ORAL Constipation 10/15/17 07:15 11/14/17 07:14 Risperidone (RisperDAL) 2 mg TWICE A DAY ORAL 10/15/17 09:00 11/14/17 08:59 10/16/17 17:50 Sodium Hypochlorite (Dakin's Half Strength) 1 applic DAILY TOPIC 10/16/17 06:00 11/15/17 05:59 10/16/17 09:04 Vancomycin HCl (Vanco rx to dose) 1 ea DAILY PRN MISC . 10/15/17 08:00 11/14/17 07:59 Vancomycin HCl 1 gm/Dextrose 275 ml @ 183.708 mls/hr Q24H IVPB 10/17/17 06:00 10/22/17 05:59 Vancomycin/Sodium Chloride 250 ml @ 250 mls/hr ONCE IVPB 10/16/17 08:00 10/21/17 07:59 10/16/17 09:02 Item Value Date Time Bedside Blood Glucose 232 mg/dl H 10/17/17 0418 Bedside Blood Glucose 236 mg/dl H 10/17/17 0037 Bedside Blood Glucose 277 mg/dl H 10/16/17 2125 Bedside Blood Glucose 271 mg/dl H 10/16/17 1752 Bedside Blood Glucose 307 mg/dl H 10/16/17 1248 Bedside Blood Glucose 150 mg/dl H 10/16/17 0900 BHARTI ZUNIGA Oct 17, 2017 06:32
[2017-10-17 06:57] LABS: HEMATOCRIT 24.8 % (42.0-52.0); HEMOGLOBIN 8.5 G/DL (14.2-18.0); MEAN CORPUSCULAR VOLUME 86 FL (80-99); PLATELET COUNT 18 K/UL (150-450); RED BLOOD COUNT 2.88 M/UL (4.70-6.10); RED CELL DISTRIBUTION WIDTH 18.6 % (11.6-14.8)
[2017-10-17 07:14] LABS: ALANINE AMINOTRANSFERASE 29 U/L (12-78); ALBUMIN 1.2 G/DL (3.4-5.0); ALBUMIN/GLOBULIN RATIO 0.3 (1.0-2.7); ALKALINE PHOSPHATASE 140 U/L (46-116); ANION GAP 17 mmol/L (5-15); ASPARTATE AMINO TRANSFERASE 78 U/L (15-37); BILIRUBIN,TOTAL 0.7 MG/DL (0.2-1.0); BLOOD UREA NITROGEN 85 mg/dL (7-18); CALCIUM 6.4 MG/DL (8.5-10.1); CARBON DIOXIDE 16 MMOL/L (21-32); CHLORIDE 121 MMOL/L (98-107); CREATININE 0.9 MG/DL (0.55-1.30); PHOSPHORUS 2.9 MG/DL (2.5-4.9); SODIUM 154 MMOL/L (136-145)
[2017-10-17 07:18] LABS: INR 1.4 (0.9-1.1)
[2017-10-17 07:30] LABS: POTASSIUM 2.4 MMOL/L (3.5-5.1)
[2017-10-17] MEDS: Vancomycin 1gm/D5W 275ml IVPB SCH ×2 (07:48)
[2017-10-17 08:00] VITALS: BP 80/41
[2017-10-17] MEDS: Pantoprazole Inj IVP SCH ×2 (08:47→20:53)
[2017-10-17] MEDS: Midodrine 10mg tab ORAL SCH ×4 (08:48→18:11)
[2017-10-17] MEDS: Depakote 125mg Sprinkles ORAL SCH ×2 (08:48→18:11)
[2017-10-17] MEDS: Dakin's 0.25% (Half Strength) 16oz TOPIC SCH (08:49)
[2017-10-17] MEDS ORDERED: Levemir Flexpen SUBQ SCH (09:00)
[2017-10-17] MEDS ORDERED: Potassium Chloride 40 MEQ in Sodium Chloride 500ML 550 ML IVPB SCH ×2 (09:30→13:30)
--- NOTE | 2017-10-17 10:48 | Pulmonology Progress Note ---
Assessment/Plan Problems: (1) Septic shock (2) Hyperosmolar non-ketotic state in patient with type 2 diabetes mellitus (3) Toxic metabolic encephalopathy (4) ARF (acute renal failure) (5) Decubital ulcer (6) S/P AKA (above knee amputation) bilateral (7) Schizophrenia Assessment/Plan change iv fluid to d5w with Kcl bun decreasing down to 80, creatinine normal cultures are negative so far Blood cultures are positive Blood sugar much better wound care NG tube feeding check electrolytes keep in HERRERA s/p vitamin K. hematology evaluation for low PLT Subjective Interval Events: somnolent Constitutional: Reports: no symptoms, fatigue, anorexia HEENT: Repors: no symptoms Allergies: Coded Allergies: NO KNOWN DRUG ALLERGIES (Unverified Allergy, Unknown, 11/11/14) Objective Last 24 Hour Vital Signs Date Time Temp Pulse Resp B/P (MAP) Pulse Ox O2 Delivery O2 Flow Rate FiO2 10/17/17 08:00 49 10/17/17 08:00 97.0 54 18 80/41 100 Venturi Mask 14.0 55 97.0 10/17/17 07:52 Venturi Mask 14.0 55 10/17/17 07:52 98 Venturi Mask 14.0 55 10/17/17 07:50 68 20 Venturi Mask 14.0 55 10/17/17 04:00 97.0 51 23 97/52 99 Venturi Mask 14.0 55 97.0 10/17/17 04:00 55 10/17/17 00:00 55 10/17/17 00:00 97.0 55 23 82/42 99 Venturi Mask 14.0 55 97.0 10/16/17 20:00 64 10/16/17 20:00 97 Venturi Mask 14.0 55 10/16/17 20:00 Venturi Mask 14.0 55 10/16/17 20:00 64 18 Venturi Mask 14.0 55 10/16/17 20:00 97.8 64 23 99/57 100 Venturi Mask 14.0 55 97.8 10/16/17 16:00 96.0 72 17 83/53 93 Venturi Mask 14.0 55 96.0 10/16/17 16:00 69 10/16/17 12:00 98.0 76 17 87/44 100 Venturi Mask 14.0 55 98.0 10/16/17 12:00 74 Intake and Output 10/16/17 10/17/17 19:00 07:00 Intake Total 2102.5 ml 1739.5 ml Output Total 525 ml Balance 1577.5 ml 1739.5 ml Free Water 100 ml IV Total 1922.5 ml 1319.5 ml Tube Feeding 80 ml 320 ml Other 100 ml Output Urine Total 525 ml General Appearance: cachetic HEENT: normocephalic, atraumatic Respiratory/Chest: chest wall non-tender, lungs clear Cardiovascular: normal peripheral pulses, normal rate Abdomen: normal bowel sounds, soft, non tender Genitourinary: normal external genitalia Extremities: no cyanosis Skin: no lesions 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 Complete 10/15/17 04:30 Sacral Wound Gram Stain - Final Resulted 10/15/17 04:30 Wound Culture - Preliminary Gram Negative Bacillus 1 Gram Positive Cocci Resulted Laboratory Tests 10/17/17 05:50: White Blood Count 10.0, Red Blood Count 2.88L, Hemoglobin 8.5L, Hematocrit 24.8L , Mean Corpuscular Volume 86, Mean Corpuscular Hemoglobin 29.5, Mean Corpuscular Hemoglobin Concent 34.2, Red Cell Distribution Width 18.6H, Platelet Count 18L, Mean Platelet Volume 12.4H, Neutrophils (%) (Auto) , Lymphocytes (%) (Auto) , Monocytes (%) (Auto) , Eosinophils (%) (Auto) , Basophils (%) (Auto) , Differential Total Cells Counted 100, Neutrophils % ( Manual) 78H, Lymphocytes % (Manual) 4L, Monocytes % (Manual) 1, Eosinophils % ( Manual) 0, Basophils % (Manual) 0, Band Neutrophils 17H, Platelet Estimate DecreasedL, Platelet Morphology Normal, Hypochromasia 1+, Anisocytosis 1+, Prothrombin Time 15.2H, Prothromb Time International Ratio 1.4H, Activated Partial Thromboplast Time 56H, Sodium Level 154H, Potassium Level 2.4*L, Chloride Level 121H, Carbon Dioxide Level 16L, Anion Gap 17H, Blood Urea Nitrogen 85H, Creatinine 0.9, Estimat Glomerular Filtration Rate > 60, Glucose Level 229#H, Lactic Acid Level 6.40H, Calcium Level 6.4L, Phosphorus Level 2.9, Magnesium Level 2.5H, Total Bilirubin 0.7, Aspartate Amino Transf (AST/SGOT) 78H , Alanine Aminotransferase (ALT/SGPT) 29, Alkaline Phosphatase 140H, Total Protein 5.0L, Albumin 1.2L, Globulin 3.8, Albumin/Globulin Ratio 0.3L Current Medications Medications (Trade) Dose Ordered Sig/Stevan Route PRN Reason Start Time Stop Time Status Last Admin Dose Admin Acetaminophen (Tylenol) 650 mg Q4H PRN ORAL T>100.5F 10/15/17 07:15 11/14/17 07:14 Acetaminophen/ Hydrocodone Bitart ([place] 5/325) 1 tab Q6H PRN ORAL MOSP 10/15/17 13:00 10/22/17 05:59 10/15/17 17:34 Albumin Human 500 ml @ 0 mls/hr Q0M ONCE IV 10/17/17 09:45 10/17/17 09:46 UNV Albuterol/ Ipratropium (Albuterol/ Ipratropium) 3 ml Q4H PRN HHN Shortness of Breath 10/15/17 07:15 10/20/17 07:14 Chlorhexidine Gluconate (Xiomara-Hex 2%) 1 applic DAILY@2000 TOPIC 10/16/17 20:00 11/15/17 19:59 10/16/17 21:23 Clindamycin HCl/ Dextrose 50 ml @ 100 mls/hr Q8HR IV 10/15/17 16:00 10/22/17 15:59 10/17/17 05:26 Clonazepam (KlonoPIN) 1 mg BEDTIME ORAL 10/15/17 21:00 10/22/17 20:59 10/16/17 21:24 Dextrose (Dextrose 50%) 25 ml STAT PRN IV Hypoglycemia 10/17/17 06:45 11/16/17 06:44 Dextrose (Dextrose 50%) 50 ml STAT PRN IV Hypoglycemia 10/17/17 06:45 11/16/17 06:44 Dextrose/Sodium Chloride 1,000 ml @ 100 mls/hr Q10H IV 10/16/17 10:30 11/15/17 10:29 10/17/17 03:22 Divalproex Sodium (Depakote Sprinkles) 750 mg TWICE A DAY ORAL 10/15/17 18:00 11/14/17 08:59 10/17/17 08:48 Insulin Aspart (NovoLOG) EVERY 4 HOURS SUBQ 10/15/17 16:30 11/14/17 16:29 10/17/17 08:51 Insulin Detemir (Levemir) 10 units BID SUBQ 10/17/17 09:00 11/16/17 08:59 10/17/17 08:51 Midodrine (Pro-Amatine) 10 mg THREE TIMES A DAY ORAL 10/16/17 13:00 11/15/17 12:59 10/17/17 08:48 Morphine Sulfate (Morphine Sulfate) 2 mg Q4H PRN IVP Severe Pain (Pain Scale 7-10) 10/15/17 13:00 10/22/17 07:14 Nitroglycerin (Ntg) 0.4 mg Q5MIN X 3 DOSES PRN SL Prn Chest Pain 10/15/17 07:45 11/14/17 07:44 Ondansetron HCl (Zofran) 4 mg Q6H PRN IVP Nausea & Vomiting 10/15/17 07:15 11/14/17 07:14 Pantoprazole (Protonix) 40 mg EVERY 12 HOURS IVP 10/16/17 11:00 11/15/17 10:59 10/17/17 08:47 Piperacillin Sod/ Tazobactam Sod 3.375 gm/Dextrose 110 ml @ 27.5 mls/hr Q12HR@0400,1600 IVPB 10/15/17 16:00 10/22/17 15:59 10/17/17 03:21 Polyethylene Glycol (Miralax) 17 gm DAILYPRN PRN ORAL Constipation 10/15/17 07:15 11/14/17 07:14 Potassium Chloride 40 meq/ Sodium Chloride 570 ml @ 142.5 mls/ hr ONCE IVPB 10/17/17 09:30 10/17/17 13:30 10/17/17 09:55 Potassium Chloride 40 meq/ Sodium Chloride 570 ml @ 142.5 mls/ hr ONCE IVPB 10/17/17 13:30 10/17/17 17:30 Risperidone (RisperDAL) 2 mg TWICE A DAY ORAL 10/15/17 09:00 11/14/17 08:59 10/17/17 08:48 Sodium Hypochlorite (Dakin's Half Strength) 1 applic DAILY TOPIC 10/16/17 06:00 11/15/17 05:59 10/17/17 08:49 Vancomycin HCl (Vanco rx to dose) 1 ea DAILY PRN MISC . 10/15/17 08:00 11/14/17 07:59 Vancomycin HCl 1 gm/Dextrose 275 ml @ 183.708 mls/hr Q24H IVPB 10/17/17 06:00 10/22/17 05:59 10/17/17 07:48 Max Gerardo MD Oct 17, 2017 10:48
[2017-10-17 12:00] VITALS: BP 80/46
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
--- NOTE | 2017-10-17 14:14 | General Progress Note ---
Assessment/Plan Status: stable Assessment/Plan schizoaffective encephalopathy cont risperdal 2mg qhs Subjective Date patient seen: Oct 16, 2017 Allergies: Coded Allergies: NO KNOWN DRUG ALLERGIES (Unverified Allergy, Unknown, 11/11/14) Subjective the pt is lethargic and confused Objective Last 24 Hour Vital Signs Date Time Temp Pulse Resp B/P (MAP) Pulse Ox O2 Delivery O2 Flow Rate FiO2 10/17/17 12:00 58 10/17/17 12:00 95.9 58 22 80/46 98 Venturi Mask 14.0 55 95.9 10/17/17 08:00 49 10/17/17 08:00 97.0 54 18 80/41 100 Venturi Mask 14.0 55 97.0 10/17/17 07:52 Venturi Mask 14.0 55 10/17/17 07:52 98 Venturi Mask 14.0 55 10/17/17 07:50 68 20 Venturi Mask 14.0 55 10/17/17 04:00 97.0 51 23 97/52 99 Venturi Mask 14.0 55 97.0 10/17/17 04:00 55 10/17/17 00:00 55 10/17/17 00:00 97.0 55 23 82/42 99 Venturi Mask 14.0 55 97.0 10/16/17 20:00 64 10/16/17 20:00 97 Venturi Mask 14.0 55 10/16/17 20:00 Venturi Mask 14.0 55 10/16/17 20:00 64 18 Venturi Mask 14.0 55 10/16/17 20:00 97.8 64 23 99/57 100 Venturi Mask 14.0 55 97.8 10/16/17 16:00 96.0 72 17 83/53 93 Venturi Mask 14.0 55 96.0 10/16/17 16:00 69 Intake and Output 10/16/17 10/17/17 19:00 07:00 Intake Total 2102.5 ml 1739.5 ml Output Total 525 ml Balance 1577.5 ml 1739.5 ml Free Water 100 ml IV Total 1922.5 ml 1319.5 ml Tube Feeding 80 ml 320 ml Other 100 ml Output Urine Total 525 ml Laboratory Tests 10/17/17 05:50: White Blood Count 10.0, Red Blood Count 2.88L, Hemoglobin 8.5L, Hematocrit 24.8L , Mean Corpuscular Volume 86, Mean Corpuscular Hemoglobin 29.5, Mean Corpuscular Hemoglobin Concent 34.2, Red Cell Distribution Width 18.6H, Platelet Count 18L, Mean Platelet Volume 12.4H, Neutrophils (%) (Auto) , Lymphocytes (%) (Auto) , Monocytes (%) (Auto) , Eosinophils (%) (Auto) , Basophils (%) (Auto) , Differential Total Cells Counted 100, Neutrophils % ( Manual) 78H, Lymphocytes % (Manual) 4L, Monocytes % (Manual) 1, Eosinophils % ( Manual) 0, Basophils % (Manual) 0, Band Neutrophils 17H, Platelet Estimate DecreasedL, Platelet Morphology Normal, Hypochromasia 1+, Anisocytosis 1+, Prothrombin Time 15.2H, Prothromb Time International Ratio 1.4H, Activated Partial Thromboplast Time 56H, Sodium Level 154H, Potassium Level 2.4*L, Chloride Level 121H, Carbon Dioxide Level 16L, Anion Gap 17H, Blood Urea Nitrogen 85H, Creatinine 0.9, Estimat Glomerular Filtration Rate > 60, Glucose Level 229#H, Lactic Acid Level 6.40H, Calcium Level 6.4L, Phosphorus Level 2.9, Magnesium Level 2.5H, Total Bilirubin 0.7, Aspartate Amino Transf (AST/SGOT) 78H , Alanine Aminotransferase (ALT/SGPT) 29, Alkaline Phosphatase 140H, Total Protein 5.0L, Albumin 1.2L, Globulin 3.8, Albumin/Globulin Ratio 0.3L 10/17/17 10:50: Lactic Acid Level 6.70H Height (Feet): 4 Weight (Pounds): 110 General Appearance: no apparent distress, lethargic, confused, agitated Evelia Vail M.D. Oct 17, 2017 14:14
--- NOTE | 2017-10-17 14:17 | General Progress Note ---
Assessment/Plan Assessment/Plan schizoaffective encephalopathy decrease Risperdal 2mg qhs cont Klonopin cont Depakote Subjective Date patient seen: Oct 17, 2017 Neurologic/Psychiatric: Reports: anxiety Allergies: Coded Allergies: NO KNOWN DRUG ALLERGIES (Unverified Allergy, Unknown, 11/11/14) Subjective the pt is lethargic and confused the pt has no episodes of agitation Objective Last 24 Hour Vital Signs Date Time Temp Pulse Resp B/P (MAP) Pulse Ox O2 Delivery O2 Flow Rate FiO2 10/17/17 12:00 58 10/17/17 12:00 95.9 58 22 80/46 98 Venturi Mask 14.0 55 95.9 10/17/17 08:00 49 10/17/17 08:00 97.0 54 18 80/41 100 Venturi Mask 14.0 55 97.0 10/17/17 07:52 Venturi Mask 14.0 55 10/17/17 07:52 98 Venturi Mask 14.0 55 10/17/17 07:50 68 20 Venturi Mask 14.0 55 10/17/17 04:00 97.0 51 23 97/52 99 Venturi Mask 14.0 55 97.0 10/17/17 04:00 55 10/17/17 00:00 55 10/17/17 00:00 97.0 55 23 82/42 99 Venturi Mask 14.0 55 97.0 10/16/17 20:00 64 10/16/17 20:00 97 Venturi Mask 14.0 55 10/16/17 20:00 Venturi Mask 14.0 55 10/16/17 20:00 64 18 Venturi Mask 14.0 55 10/16/17 20:00 97.8 64 23 99/57 100 Venturi Mask 14.0 55 97.8 10/16/17 16:00 96.0 72 17 83/53 93 Venturi Mask 14.0 55 96.0 10/16/17 16:00 69 Intake and Output 10/16/17 10/17/17 19:00 07:00 Intake Total 2102.5 ml 1739.5 ml Output Total 525 ml Balance 1577.5 ml 1739.5 ml Free Water 100 ml IV Total 1922.5 ml 1319.5 ml Tube Feeding 80 ml 320 ml Other 100 ml Output Urine Total 525 ml Laboratory Tests 10/17/17 05:50: White Blood Count 10.0, Red Blood Count 2.88L, Hemoglobin 8.5L, Hematocrit 24.8L , Mean Corpuscular Volume 86, Mean Corpuscular Hemoglobin 29.5, Mean Corpuscular Hemoglobin Concent 34.2, Red Cell Distribution Width 18.6H, Platelet Count 18L, Mean Platelet Volume 12.4H, Neutrophils (%) (Auto) , Lymphocytes (%) (Auto) , Monocytes (%) (Auto) , Eosinophils (%) (Auto) , Basophils (%) (Auto) , Differential Total Cells Counted 100, Neutrophils % ( Manual) 78H, Lymphocytes % (Manual) 4L, Monocytes % (Manual) 1, Eosinophils % ( Manual) 0, Basophils % (Manual) 0, Band Neutrophils 17H, Platelet Estimate DecreasedL, Platelet Morphology Normal, Hypochromasia 1+, Anisocytosis 1+, Prothrombin Time 15.2H, Prothromb Time International Ratio 1.4H, Activated Partial Thromboplast Time 56H, Sodium Level 154H, Potassium Level 2.4*L, Chloride Level 121H, Carbon Dioxide Level 16L, Anion Gap 17H, Blood Urea Nitrogen 85H, Creatinine 0.9, Estimat Glomerular Filtration Rate > 60, Glucose Level 229#H, Lactic Acid Level 6.40H, Calcium Level 6.4L, Phosphorus Level 2.9, Magnesium Level 2.5H, Total Bilirubin 0.7, Aspartate Amino Transf (AST/SGOT) 78H , Alanine Aminotransferase (ALT/SGPT) 29, Alkaline Phosphatase 140H, Total Protein 5.0L, Albumin 1.2L, Globulin 3.8, Albumin/Globulin Ratio 0.3L 10/17/17 10:50: Lactic Acid Level 6.70H Height (Feet): 4 Weight (Pounds): 110 General Appearance: no apparent distress, lethargic, confused Evelia Vail M.D. Oct 17, 2017 14:17
--- NOTE | 2017-10-17 15:33 | Nephrology Progress Note ---
Assessment/Plan Problem List: (1) Septic shock (2) ARF (acute renal failure) (3) Hyperosmolar non-ketotic state in patient with type 2 diabetes mellitus Assessment Renal Failure- Sepsis Leukocytosis- DM OOC Elevated CPK , Rhabdo Hypotension- Shock Anemia HypoAlbuminemia Plan Plan; correct electrolytes change IV to 1/2 NS Hydrocortisone Fluids- Albumin Antibuiotics Keep BP and BS in check Urine studies Per Orders Subjective ROS Limited/Unobtainable: No Objective Objective Last 24 Hour Vital Signs Date Time Temp Pulse Resp B/P (MAP) Pulse Ox O2 Delivery O2 Flow Rate FiO2 10/17/17 12:00 58 10/17/17 12:00 95.9 58 22 80/46 98 Venturi Mask 14.0 55 95.9 10/17/17 08:00 49 10/17/17 08:00 97.0 54 18 80/41 100 Venturi Mask 14.0 55 97.0 10/17/17 07:52 Venturi Mask 14.0 55 10/17/17 07:52 98 Venturi Mask 14.0 55 10/17/17 07:50 68 20 Venturi Mask 14.0 55 10/17/17 04:00 97.0 51 23 97/52 99 Venturi Mask 14.0 55 97.0 10/17/17 04:00 55 10/17/17 00:00 55 10/17/17 00:00 97.0 55 23 82/42 99 Venturi Mask 14.0 55 97.0 10/16/17 20:00 64 10/16/17 20:00 97 Venturi Mask 14.0 55 10/16/17 20:00 Venturi Mask 14.0 55 10/16/17 20:00 64 18 Venturi Mask 14.0 55 10/16/17 20:00 97.8 64 23 99/57 100 Venturi Mask 14.0 55 97.8 10/16/17 16:00 96.0 72 17 83/53 93 Venturi Mask 14.0 55 96.0 10/16/17 16:00 69 Intake and Output 10/16/17 10/17/17 19:00 07:00 Intake Total 2102.5 ml 1839.5 ml Output Total 525 ml Balance 1577.5 ml 1839.5 ml Free Water 100 ml IV Total 1922.5 ml 1419.5 ml Tube Feeding 80 ml 320 ml Other 100 ml Output Urine Total 525 ml Laboratory Tests 10/17/17 05:50: White Blood Count 10.0, Red Blood Count 2.88L, Hemoglobin 8.5L, Hematocrit 24.8L , Mean Corpuscular Volume 86, Mean Corpuscular Hemoglobin 29.5, Mean Corpuscular Hemoglobin Concent 34.2, Red Cell Distribution Width 18.6H, Platelet Count 18L, Mean Platelet Volume 12.4H, Neutrophils (%) (Auto) , Lymphocytes (%) (Auto) , Monocytes (%) (Auto) , Eosinophils (%) (Auto) , Basophils (%) (Auto) , Differential Total Cells Counted 100, Neutrophils % ( Manual) 78H, Lymphocytes % (Manual) 4L, Monocytes % (Manual) 1, Eosinophils % ( Manual) 0, Basophils % (Manual) 0, Band Neutrophils 17H, Platelet Estimate DecreasedL, Platelet Morphology Normal, Hypochromasia 1+, Anisocytosis 1+, Prothrombin Time 15.2H, Prothromb Time International Ratio 1.4H, Activated Partial Thromboplast Time 56H, Sodium Level 154H, Potassium Level 2.4*L, Chloride Level 121H, Carbon Dioxide Level 16L, Anion Gap 17H, Blood Urea Nitrogen 85H, Creatinine 0.9, Estimat Glomerular Filtration Rate > 60, Glucose Level 229#H, Lactic Acid Level 6.40H, Calcium Level 6.4L, Phosphorus Level 2.9, Magnesium Level 2.5H, Total Bilirubin 0.7, Aspartate Amino Transf (AST/SGOT) 78H , Alanine Aminotransferase (ALT/SGPT) 29, Alkaline Phosphatase 140H, Total Protein 5.0L, Albumin 1.2L, Globulin 3.8, Albumin/Globulin Ratio 0.3L 10/17/17 10:50: Lactic Acid Level 6.70H Height (Feet): 4 Weight (Pounds): 110 General Appearance: lethargic, confused Cardiovascular: tachycardia Respiratory/Chest: decreased breath sounds Abdomen: distended JAKY JOSEPH Oct 17, 2017 15:33
[2017-10-17 16:00] VITALS: BP 75/44
[2017-10-17] MEDS ORDERED: Hydrocortisone 100mg Inj IV ONE (16:00)
--- NOTE | 2017-10-17 16:13 | Diagnostic Imaging Report ---
Indication: Post nasogastric tube placement Technique: Supine view of the upper abdomen Comparison: 10/16/2017 Findings: Neither image demonstrates a nasogastric tube. Right femoral central venous catheter is noted. The bowel gas pattern is unremarkable Impression: Nonvisualized nasogastric tube, presumably within the proximal esophagus, malpositioned. Critical value findings discussed by phone with patient's nurse at approximately 1500 on 10/17/2017
--- NOTE | 2017-10-17 16:43 | Diagnostic Imaging Report ---
Indication: Post nasogastric tube placement Technique: Supine view of the abdomen Comparison: 10/17/2017 Findings: Interim placement of a nasogastric tube, tip in good position coiled within the gastric fundus, proximal port well beyond the gastroesophageal junction. A single prominent upper abdominal midline small bowel loop is noted, not evident previously. Impression: Satisfactory nasogastric intubation Nonspecific prominent midline upper abdominal small bowel loop
[2017-10-17 20:00] VITALS: BP 88/45
[2017-10-17] MEDS: Dyna-Hex 2% Top Sol 2oz TOPIC SCH (20:52)
[2017-10-17] MEDS: Levemir Flexpen SUBQ SCH (20:58)
[2017-10-17] MEDS: Hydrocortisone 100mg Inj IV SCH (21:14)
[2017-10-18] VITALS: BP 85/44
[2017-10-18] MEDS: NovoLOG Insulin Flexpen SUBQ SCH ×3 (01:06→08:55)
[2017-10-18] MEDS: Piperacillin/Tazobactam 3.375 GM in D5W 110 ML IVPB SCH (03:31)
[2017-10-18 03:58] LABS: HEMATOCRIT 25.7 % (42.0-52.0); HEMOGLOBIN 8.7 G/DL (14.2-18.0); MEAN CORPUSCULAR VOLUME 85 FL (80-99); RED BLOOD COUNT 3.01 M/UL (4.70-6.10); RED CELL DISTRIBUTION WIDTH 18.5 % (11.6-14.8); WHITE BLOOD COUNT 3.9 K/UL (4.8-10.8)
[2017-10-18 04:00] VITALS: BP 114/86
[2017-10-18 04:06] LABS: PLATELET COUNT 9 K/UL (150-450)
[2017-10-18 04:12] LABS: % IRON SATURATION 12 % (15-50); IRON 14 ug/dL (50-175); LACTATE DEHYDROGENASE 327 U/L (81-234); TOTAL IRON BINDING CAPACITY 118 ug/dL (250-450)
[2017-10-18 04:26] LABS: INR 1.6 (0.9-1.1)
[2017-10-18 04:47] LABS: ALANINE AMINOTRANSFERASE 32 U/L (12-78); ALBUMIN 1.5 G/DL (3.4-5.0); ALBUMIN/GLOBULIN RATIO 0.4 (1.0-2.7); ALKALINE PHOSPHATASE 129 U/L (46-116); ANION GAP 15 mmol/L (5-15); ASPARTATE AMINO TRANSFERASE 107 U/L (15-37); BLOOD UREA NITROGEN 76 mg/dL (7-18); CALCIUM 6.1 MG/DL (8.5-10.1); CARBON DIOXIDE 18 MMOL/L (21-32); CHLORIDE 122 MMOL/L (98-107); CREATININE 0.7 MG/DL (0.55-1.30); FERRITIN 1637 NG/ML (8-388); PHOSPHORUS 2.4 MG/DL (2.5-4.9); POTASSIUM 3.1 MMOL/L (3.5-5.1); SODIUM 155 MMOL/L (136-145)
--- NOTE | 2017-10-18 05:00 | Consultation ---
DATE OF CONSULTATION: 10/17/2017 HEMATOLOGY/ONCOLOGY CONSULTATION CONSULTING PHYSICIAN: Edward Adams M.D. ADMITTING PHYSICIAN: Max Gerardo M.D. REQUESTING PHYSICIAN: aMx Gerardo M.D. REASON FOR CONSULTATION: Thrombocytopenia, persistent and severe and anemia, persistent and severe. CURRENT COMPLANT/HISTORY OF PRESENT ILLNESS: Dear Dr. Gerardo, Today, I had an opportunity to see one of your patient, Mr. Zak Becker, who as you well aware is a 72-year-old delightful gentleman with past medical history remarkable for coronary artery disease, hypertension, CHF, peripheral vascular disease, diabetes mellitus, history of alcohol abuse, alcoholic liver cirrhosis, psychosis, and noncompliance. The patient was brought to the emergency room with mental status changes and hypertension. The patient was found to have sepsis with ATN and become hyperosmolar. During evaluation, it was found that the patient developed significant anemia as well as thrombocytopenia. My service was called to handle the issue of blood dyscrasia. PAST MEDICAL HISTORY: 1. Alcoholic liver cirrhosis. 2. History of alcohol abuse. 3. Diabetes mellitus. 4. Peripheral vascular disease. 5. Status post bilateral above knee amputations. 6. History of systolic heart failure. 7. History of noncompliance. 8. Psychosis. 9. Renal failure. MEDICATIONS: 1. Hydrocortisone. 2. Risperdal. 3. Insulin. 4. Sodium chloride. 5. Dextrose. 6. Vancomycin. 7. . 8. Midodrine. 9. Protonix. 10. Clonazepam. 11. NovoLog. 12. Piperacillin. 13. Clindamycin. 14. Hydrocodone. 15. Albuterol. 16. Zofran. REVIEW OF SYSTEMS: The patient claimed muscle aches, weakness, malaise, fever. RESPIRATORY: Mild shortness of breath on exertion. GASTROINTESTINAL: The patient claimed constipation. NEUROMUSCULAR: The patient claimed back pain. PHYSICAL EXAMINATION: VITAL SIGNS: T-max 99 degrees, respiratory rate 20, heart rate 80, and blood pressure 110/80. HEENT: Head, normocephalic and atraumatic. NECK: Supple. No thyroid enlargement. No lymphadenopathy. LUNGS: Decreased breath sounds bilaterally with few rhonchi in the base. HEART: S1 and S2 regular. ABDOMEN: Soft, benign. No organomegaly present. Bowel sounds present. EXTREMITIES: No cyanosis, clubbing, or edema. LABORATORY AND DIAGNOSTIC DATA: WBC 10.0, hemoglobin 8.5, hematocrit 24.8, and platelet count 18,000. Sedimentation rate 92. Coagulation show INR 1.4. Chemistry show potassium 2.4 and creatinine 0.9. IMPRESSION: 1. Thrombocytopenia, secondary to alcoholic liver cirrhosis. 2. Anemia of chronic disease. 3. Anemia of kidney disease. 4. Anemia of iron deficiency. 5. Decreased hemoglobin and hematocrit, rule out GI bleed. 6. Leukocytosis with left shift. 7. History of leukemoid reaction. 8. History of alcohol abuse. 9. Alcoholic liver cirrhosis. 10. Diabetes mellitus. 11. Peripheral vascular disease. 12. Status post bilateral [id number] amputation. 13. Hypertension. 14. CHF. 15. Sepsis. 16. Septic shock. 17. Hyperosmolar nonketotic state. 18. Diabetes mellitus type 2. 19. Toxic metabolic encephalopathy. 20. Acute renal failure. 21. Decubitus. 22. Schizophrenia. 23. Malnutrition. 24. Weight loss. 25. Failure to thrive. RECOMMENDATIONS: 1. Watch count. 2. Watch coagulopathy. 3. PRBC transfusion p.r.n. basis. 4. Platelet transfusion p.r.n. basis. 5. Vitamin K. 6. Antibiotic IV. 7. Gastroenterology evaluation. 8. Infectious Disease evaluation and followup. 9. Nephrology followup. 10. Cardiology followup. 11. Skin care. 12. Wound care. 13. Nutrition. 14. Discussed with staff. 15. Close followup. Dear Dr. Gerardo, I greatly appreciate the opportunity to participate in the care of one of your patients. It is a privilege to me to be on this interesting and challenging case. Edward Adams MD DR: CLAY JOB#: [id number] CC:
[2017-10-18] MEDS: Clindamycin 900mg 50 ML IV SCH (05:26)
[2017-10-18] MEDS: Vancomycin 1gm/D5W 275ml IVPB SCH ×2 (05:27)
[2017-10-18] MEDS: Hydrocortisone 100mg Inj IV SCH (06:00)
[2017-10-18] MEDS ORDERED: Acetaminophen 500mg (ES) tab ORAL PRN ×2 (07:00→12:48)
[2017-10-18 08:00] VITALS: BP 76/48
[2017-10-18] MEDS: Depakote 125mg Sprinkles ORAL SCH (08:50)
[2017-10-18] MEDS: Midodrine 10mg tab ORAL SCH (08:51)
[2017-10-18] MEDS: Dakin's 0.25% (Half Strength) 16oz TOPIC SCH (08:51)
[2017-10-18] MEDS: Levemir Flexpen SUBQ SCH (08:52)
--- NOTE | 2017-10-18 09:21 | General Progress Note ---
Assessment/Plan Problem List: (1) Diabetes mellitus out of control ICD Codes: E11.65 - Type 2 diabetes mellitus with hyperglycemia SNOMED: 63104843, 902153151 (2) Cardiomyopathy ICD Codes: I42.9 - Cardiomyopathy, unspecified SNOMED: 47420783 (3) Altered mental state ICD Codes: R41.82 - Altered mental status, unspecified SNOMED: 035142211 (4) Schizophrenia ICD Codes: F20.9 - Schizophrenia, unspecified SNOMED: 85357387 (5) S/P AKA (above knee amputation) bilateral ICD Codes: Z89.611 - Acquired absence of right leg above knee; Z89.612 - Acquired absence of left leg above knee SNOMED: 81207648, 552242861 Assessment/Plan increase Levemir to 18 units bid continue NISS Subjective ROS Limited/Unobtainable: Yes Allergies: Coded Allergies: NO KNOWN DRUG ALLERGIES (Unverified Allergy, Unknown, 11/11/14) Subjective events noted BG elevated but improved on TF Objective Last 24 Hour Vital Signs Date Time Temp Pulse Resp B/P (MAP) Pulse Ox O2 Delivery O2 Flow Rate FiO2 10/18/17 07:37 65 18 Venturi Mask 14.0 55 10/18/17 07:37 Venturi Mask 14.0 55 10/18/17 07:37 98 Venturi Mask 14.0 55 10/18/17 04:00 58 10/18/17 04:00 97.2 50 23 114/86 94 Venturi Mask 14.0 50 97.2 10/18/17 00:00 97.3 50 22 85/44 98 Venturi Mask 14.0 50 97.3 10/18/17 00:00 48 10/17/17 20:00 97.3 50 23 88/45 99 Venturi Mask 14.0 50 97.3 10/17/17 20:00 48 10/17/17 19:30 60 20 Venturi Mask 14.0 55 10/17/17 19:30 98 Venturi Mask 14.0 55 10/17/17 19:30 Venturi Mask 14.0 55 10/17/17 16:00 58 10/17/17 16:00 96.8 56 16 75/44 100 Venturi Mask 14.0 55 96.8 10/17/17 12:00 58 10/17/17 12:00 95.9 58 22 80/46 98 Venturi Mask 14.0 55 95.9 Intake and Output 10/17/17 10/18/17 19:00 07:00 Intake Total 3040.0423 ml 1488.2917 ml Output Total 800 ml 1000 ml Balance 2240.0423 ml 488.2917 ml IV Total 2790.0423 ml 1098.2917 ml Tube Feeding 150 ml 360 ml Other 100 ml 30 ml Output Urine Total 800 ml 1000 ml # Bowel Movements 1 Laboratory Tests 10/17/17 10:50: Lactic Acid Level 6.70H 10/18/17 03:00: White Blood Count 3.9#L, Red Blood Count 3.01L, Hemoglobin 8.7L, Hematocrit 25.7L, Mean Corpuscular Volume 85, Mean Corpuscular Hemoglobin 29.1, Mean Corpuscular Hemoglobin Concent 34.1, Red Cell Distribution Width 18.5H, Platelet Count 9*L, Mean Platelet Volume 10.9H, Neutrophils (%) (Auto) , Lymphocytes (%) (Auto) , Monocytes (%) (Auto) , Eosinophils (%) (Auto) , Basophils (%) (Auto) , Differential Total Cells Counted 100, Neutrophils % ( Manual) 83H, Lymphocytes % (Manual) 4L, Monocytes % (Manual) 2, Eosinophils % ( Manual) 0, Basophils % (Manual) 0, Band Neutrophils 11H, Platelet Estimate DecreasedL, Platelet Morphology , Giant Platelets Occasional, Hypochromasia 1+, Anisocytosis 1+, Reticulocyte Count 0.7, Haptoglobin [Pending], Prothrombin Time 16.4H, Prothromb Time International Ratio 1.6H, Fibrinogen 325, Sodium Level 155H, Potassium Level 3.1L, Chloride Level 122H, Carbon Dioxide Level 18L , Anion Gap 15, Blood Urea Nitrogen 76H, Creatinine 0.7, Estimat Glomerular Filtration Rate > 60, Glucose Level 174H, Calcium Level 6.1L, Phosphorus Level 2.4L, Magnesium Level 2.1, Iron Level 14L, Total Iron Binding Capacity 118L, Percent Iron Saturation 12L, Unsaturated Iron Binding 104L, Ferritin 1637H, Total Bilirubin 1.0, Aspartate Amino Transf (AST/SGOT) 107H, Alanine Aminotransferase (ALT/SGPT) 32, Alkaline Phosphatase 129H, Lactate Dehydrogenase 327H, Total Protein 5.3L, Albumin 1.5L, Globulin 3.8, Albumin/ Globulin Ratio 0.4L, Heparin-PF4 Antibody Screen [Pending], Hepatitis A IgM Antibody [Pending], Hepatitis B Surface Antigen [Pending], Hepatitis B Core IgM Antibody [Pending], Hepatitis C Antibody [Pending], HIV (1&2) Antibody Rapid Negative Height (Feet): 4 Weight (Pounds): 110 General Appearance: no apparent distress Neck: normal alignment Cardiovascular: normal rate Respiratory/Chest: decreased breath sounds Abdomen: normal bowel sounds Edema: 1+ Arm (L), 1+ Arm (R), 1+ Leg (L), 1+ Leg (R), 1+ Pedal (L), 1+ Pedal ( R), 1+ Generalized Objective Current Medications Medications (Trade) Dose Ordered Sig/Stevan Route PRN Reason Start Time Stop Time Status Last Admin Dose Admin Acetaminophen (Tylenol) 500 mg PRN PRN ORAL Per rx protocol 10/18/17 07:00 11/17/17 06:59 Acetaminophen (Tylenol) 650 mg Q4H PRN ORAL T>100.5F 10/15/17 07:15 11/14/17 07:14 Acetaminophen/ Hydrocodone Bitart ([place] 5/325) 1 tab Q6H PRN ORAL MOSP 10/15/17 13:00 10/22/17 05:59 10/15/17 17:34 Albuterol/ Ipratropium (Albuterol/ Ipratropium) 3 ml Q4H PRN HHN Shortness of Breath 10/15/17 07:15 10/20/17 07:14 Chlorhexidine Gluconate (Xiomara-Hex 2%) 1 applic DAILY@2000 TOPIC 10/16/17 20:00 11/15/17 19:59 10/17/17 20:52 Clindamycin HCl/ Dextrose 50 ml @ 100 mls/hr Q8HR IV 10/15/17 16:00 10/22/17 15:59 10/18/17 05:26 Clonazepam (KlonoPIN) 1 mg BEDTIME ORAL 10/15/17 21:00 10/22/17 20:59 10/17/17 20:53 Dextrose (Dextrose 50%) 25 ml STAT PRN IV Hypoglycemia 10/17/17 06:45 11/16/17 06:44 Dextrose (Dextrose 50%) 50 ml STAT PRN IV Hypoglycemia 10/17/17 06:45 11/16/17 06:44 Diphenhydramine HCl (Benadryl) 50 mg PRN PRN ORAL Per rx protocol 10/18/17 07:00 11/17/17 06:59 Divalproex Sodium (Depakote Sprinkles) 750 mg TWICE A DAY ORAL 10/15/17 18:00 11/14/17 08:59 10/18/17 08:50 Famotidine (Pepcid I.v.) 20 mg Q12HR IVP 10/18/17 00:00 11/17/17 00:00 10/18/17 08:50 Hydrocortisone (Solu-CORTEF) 100 mg EVERY 8 HOURS IV 10/17/17 22:00 11/16/17 21:59 10/18/17 06:00 Hydromorphone HCl (Dilaudid) 0.5 mg Q4H PRN IM FOR PAIN 10/17/17 23:30 10/24/17 23:29 Insulin Aspart (NovoLOG) EVERY 4 HOURS SUBQ 10/15/17 16:30 11/14/17 16:29 10/18/17 08:55 Insulin Detemir (Levemir) 15 units Q12HR SUBQ 10/17/17 21:00 11/16/17 20:59 10/18/17 08:52 Midodrine (Pro-Amatine) 10 mg THREE TIMES A DAY ORAL 10/16/17 13:00 11/15/17 12:59 10/18/17 08:51 Nitroglycerin (Ntg) 0.4 mg Q5MIN X 3 DOSES PRN SL Prn Chest Pain 10/15/17 07:45 11/14/17 07:44 Piperacillin Sod/ Tazobactam Sod 3.375 gm/Dextrose 110 ml @ 27.5 mls/hr Q12HR@0400,1600 IVPB 10/15/17 16:00 10/22/17 15:59 10/18/17 03:31 Polyethylene Glycol (Miralax) 17 gm DAILYPRN PRN ORAL Constipation 10/15/17 07:15 11/14/17 07:14 Prochlorperazine (Compazine) 10 mg Q8HR PRN IVP Nausea & Vomiting 10/17/17 22:45 11/16/17 22:44 Risperidone (RisperDAL) 2 mg BEDTIME ORAL 10/17/17 21:00 11/16/17 20:59 10/17/17 20:53 Sodium Hypochlorite (Dakin's Half Strength) 1 applic DAILY TOPIC 10/16/17 06:00 11/15/17 05:59 10/18/17 08:51 Sodium Chloride 1,000 ml @ 50 mls/hr Q20H IV 10/17/17 16:00 11/16/17 15:59 10/17/17 16:48 Vancomycin HCl (Vanco rx to dose) 1 ea DAILY PRN MISC . 10/15/17 08:00 11/14/17 07:59 Vancomycin HCl 1 gm/Dextrose 275 ml @ 183.708 mls/hr Q24H IVPB 10/17/17 06:00 10/22/17 05:59 10/18/17 05:27 Item Value Date Time Bedside Blood Glucose 202 mg/dl H 10/18/17 0855 Bedside Blood Glucose 185 mg/dl H 10/18/17 0526 Bedside Blood Glucose 177 mg/dl H 10/18/17 0106 Bedside Blood Glucose 216 mg/dl H 10/17/17 2100 Bedside Blood Glucose 273 mg/dl H 10/17/17 1649 Bedside Blood Glucose 260 mg/dl H 10/17/17 1324 BHARTI ZUNIGA Oct 18, 2017 09:21
--- NOTE | 2017-10-18 10:21 | Nephrology Progress Note ---
Assessment/Plan Problem List: (1) Septic shock (2) ARF (acute renal failure) (3) Hyperosmolar non-ketotic state in patient with type 2 diabetes mellitus Assessment Renal Failure- Sepsis Leukocytosis- DM OOC Elevated CPK , Rhabdo Hypotension- Shock Anemia HypoAlbuminemia Plan Plan; correct electrolytes change IV to D5 Hydrocortisone 100 Q8 Midodrine Fluids- Albumin PRN Antibuiotics Keep BP and BS in check Urine studies Per Orders Subjective ROS Limited/Unobtainable: No Constitutional: Reports: malaise Objective Objective Last 24 Hour Vital Signs Date Time Temp Pulse Resp B/P (MAP) Pulse Ox O2 Delivery O2 Flow Rate FiO2 10/18/17 08:00 97.5 60 20 76/48 91 Venturi Mask 14.0 50 97.5 10/18/17 07:37 65 18 Venturi Mask 14.0 55 10/18/17 07:37 Venturi Mask 14.0 55 10/18/17 07:37 98 Venturi Mask 14.0 55 10/18/17 04:00 58 10/18/17 04:00 97.2 50 23 114/86 94 Venturi Mask 14.0 50 97.2 10/18/17 00:00 97.3 50 22 85/44 98 Venturi Mask 14.0 50 97.3 10/18/17 00:00 48 10/17/17 20:00 97.3 50 23 88/45 99 Venturi Mask 14.0 50 97.3 10/17/17 20:00 48 10/17/17 19:30 60 20 Venturi Mask 14.0 55 10/17/17 19:30 98 Venturi Mask 14.0 55 10/17/17 19:30 Venturi Mask 14.0 55 10/17/17 16:00 58 10/17/17 16:00 96.8 56 16 75/44 100 Venturi Mask 14.0 55 96.8 10/17/17 12:00 58 10/17/17 12:00 95.9 58 22 80/46 98 Venturi Mask 14.0 55 95.9 Intake and Output 10/17/17 10/18/17 19:00 07:00 Intake Total 3040.0423 ml 1488.2917 ml Output Total 800 ml 1000 ml Balance 2240.0423 ml 488.2917 ml IV Total 2790.0423 ml 1098.2917 ml Tube Feeding 150 ml 360 ml Other 100 ml 30 ml Output Urine Total 800 ml 1000 ml # Bowel Movements 1 Laboratory Tests 10/17/17 10:50: Lactic Acid Level 6.70H 10/18/17 03:00: White Blood Count 3.9#L, Red Blood Count 3.01L, Hemoglobin 8.7L, Hematocrit 25.7L, Mean Corpuscular Volume 85, Mean Corpuscular Hemoglobin 29.1, Mean Corpuscular Hemoglobin Concent 34.1, Red Cell Distribution Width 18.5H, Platelet Count 9*L, Mean Platelet Volume 10.9H, Neutrophils (%) (Auto) , Lymphocytes (%) (Auto) , Monocytes (%) (Auto) , Eosinophils (%) (Auto) , Basophils (%) (Auto) , Differential Total Cells Counted 100, Neutrophils % ( Manual) 83H, Lymphocytes % (Manual) 4L, Monocytes % (Manual) 2, Eosinophils % ( Manual) 0, Basophils % (Manual) 0, Band Neutrophils 11H, Platelet Estimate DecreasedL, Platelet Morphology , Giant Platelets Occasional, Hypochromasia 1+, Anisocytosis 1+, Reticulocyte Count 0.7, Haptoglobin [Pending], Prothrombin Time 16.4H, Prothromb Time International Ratio 1.6H, Fibrinogen 325, Sodium Level 155H, Potassium Level 3.1L, Chloride Level 122H, Carbon Dioxide Level 18L , Anion Gap 15, Blood Urea Nitrogen 76H, Creatinine 0.7, Estimat Glomerular Filtration Rate > 60, Glucose Level 174H, Calcium Level 6.1L, Phosphorus Level 2.4L, Magnesium Level 2.1, Iron Level 14L, Total Iron Binding Capacity 118L, Percent Iron Saturation 12L, Unsaturated Iron Binding 104L, Ferritin 1637H, Total Bilirubin 1.0, Aspartate Amino Transf (AST/SGOT) 107H, Alanine Aminotransferase (ALT/SGPT) 32, Alkaline Phosphatase 129H, Lactate Dehydrogenase 327H, Total Protein 5.3L, Albumin 1.5L, Globulin 3.8, Albumin/ Globulin Ratio 0.4L, Heparin-PF4 Antibody Screen [Pending], Hepatitis A IgM Antibody [Pending], Hepatitis B Surface Antigen [Pending], Hepatitis B Core IgM Antibody [Pending], Hepatitis C Antibody [Pending], HIV (1&2) Antibody Rapid Negative Height (Feet): 4 Weight (Pounds): 110 General Appearance: lethargic, confused Cardiovascular: tachycardia Respiratory/Chest: decreased breath sounds Abdomen: distended JAKY JOSEPH Oct 18, 2017 10:21
[2017-10-18] MEDS ORDERED: Pantoprazole Inj IVP SCH (10:30)
--- NOTE | 2017-10-18 10:44 | Pulmonology Progress Note ---
Assessment/Plan Problems: (1) Septic shock (2) Hyperosmolar non-ketotic state in patient with type 2 diabetes mellitus (3) Toxic metabolic encephalopathy (4) ARF (acute renal failure) (5) Decubital ulcer (6) S/P AKA (above knee amputation) bilateral (7) Schizophrenia Assessment/Plan dc iv fluid bun decreasing cultures: + blood cultures Blood cultures are positive Blood sugar much better wound care NG tube feeding check electrolytes s/p vitamin K. pt will benefit from comfort care Subjective ROS Limited/Unobtainable: Yes Interval Events: more short of breath Allergies: Coded Allergies: NO KNOWN DRUG ALLERGIES (Unverified Allergy, Unknown, 11/11/14) Objective Last 24 Hour Vital Signs Date Time Temp Pulse Resp B/P (MAP) Pulse Ox O2 Delivery O2 Flow Rate FiO2 10/18/17 08:00 97.5 60 20 76/48 91 Venturi Mask 14.0 50 97.5 10/18/17 07:37 65 18 Venturi Mask 14.0 55 10/18/17 07:37 Venturi Mask 14.0 55 10/18/17 07:37 98 Venturi Mask 14.0 55 10/18/17 04:00 58 10/18/17 04:00 97.2 50 23 114/86 94 Venturi Mask 14.0 50 97.2 10/18/17 00:00 97.3 50 22 85/44 98 Venturi Mask 14.0 50 97.3 10/18/17 00:00 48 10/17/17 20:00 97.3 50 23 88/45 99 Venturi Mask 14.0 50 97.3 10/17/17 20:00 48 10/17/17 19:30 60 20 Venturi Mask 14.0 55 10/17/17 19:30 98 Venturi Mask 14.0 55 10/17/17 19:30 Venturi Mask 14.0 55 10/17/17 16:00 58 10/17/17 16:00 96.8 56 16 75/44 100 Venturi Mask 14.0 55 96.8 10/17/17 12:00 58 10/17/17 12:00 95.9 58 22 80/46 98 Venturi Mask 14.0 55 95.9 Intake and Output 10/17/17 10/18/17 19:00 07:00 Intake Total 3040.0423 ml 1488.2917 ml Output Total 800 ml 1000 ml Balance 2240.0423 ml 488.2917 ml IV Total 2790.0423 ml 1098.2917 ml Tube Feeding 150 ml 360 ml Other 100 ml 30 ml Output Urine Total 800 ml 1000 ml # Bowel Movements 1 General Appearance: cachetic HEENT: normocephalic, atraumatic Respiratory/Chest: chest wall non-tender, crackles/rales, rhonchi - loud Cardiovascular: normal peripheral pulses Abdomen: normal bowel sounds, soft, non tender Genitourinary: normal external genitalia Extremities: no cyanosis Skin: no rash Microbiology Date/Time Source Procedure Growth Status 10/16/17 14:45 Blood Blood Culture - Preliminary NO GROWTH AFTER 24 HOURS Resulted 10/16/17 14:30 Blood Blood Culture - Preliminary NO GROWTH AFTER 24 HOURS Resulted 10/15/17 18:09 Nasopharynx Influenza Types A,B Antigen (ANA) - Final Complete 10/16/17 14:45 Urine,Clean Catch Urine Culture - Preliminary NO GROWTH AFTER 24 HOURS Resulted Laboratory Tests 10/17/17 10:50: Lactic Acid Level 6.70H 10/18/17 03:00: White Blood Count 3.9#L, Red Blood Count 3.01L, Hemoglobin 8.7L, Hematocrit 25.7L, Mean Corpuscular Volume 85, Mean Corpuscular Hemoglobin 29.1, Mean Corpuscular Hemoglobin Concent 34.1, Red Cell Distribution Width 18.5H, Platelet Count 9*L, Mean Platelet Volume 10.9H, Neutrophils (%) (Auto) , Lymphocytes (%) (Auto) , Monocytes (%) (Auto) , Eosinophils (%) (Auto) , Basophils (%) (Auto) , Differential Total Cells Counted 100, Neutrophils % ( Manual) 83H, Lymphocytes % (Manual) 4L, Monocytes % (Manual) 2, Eosinophils % ( Manual) 0, Basophils % (Manual) 0, Band Neutrophils 11H, Platelet Estimate DecreasedL, Platelet Morphology , Giant Platelets Occasional, Hypochromasia 1+, Anisocytosis 1+, Reticulocyte Count 0.7, Haptoglobin [Pending], Prothrombin Time 16.4H, Prothromb Time International Ratio 1.6H, Fibrinogen 325, Sodium Level 155H, Potassium Level 3.1L, Chloride Level 122H, Carbon Dioxide Level 18L , Anion Gap 15, Blood Urea Nitrogen 76H, Creatinine 0.7, Estimat Glomerular Filtration Rate > 60, Glucose Level 174H, Calcium Level 6.1L, Phosphorus Level 2.4L, Magnesium Level 2.1, Iron Level 14L, Total Iron Binding Capacity 118L, Percent Iron Saturation 12L, Unsaturated Iron Binding 104L, Ferritin 1637H, Total Bilirubin 1.0, Aspartate Amino Transf (AST/SGOT) 107H, Alanine Aminotransferase (ALT/SGPT) 32, Alkaline Phosphatase 129H, Lactate Dehydrogenase 327H, Total Protein 5.3L, Albumin 1.5L, Globulin 3.8, Albumin/ Globulin Ratio 0.4L, Heparin-PF4 Antibody Screen [Pending], Hepatitis A IgM Antibody [Pending], Hepatitis B Surface Antigen [Pending], Hepatitis B Core IgM Antibody [Pending], Hepatitis C Antibody [Pending], HIV (1&2) Antibody Rapid Negative Current Medications Medications (Trade) Dose Ordered Sig/Stevan Route PRN Reason Start Time Stop Time Status Last Admin Dose Admin Acetaminophen (Tylenol) 500 mg PRN PRN ORAL Per rx protocol 10/18/17 07:00 11/17/17 06:59 Acetaminophen (Tylenol) 650 mg Q4H PRN ORAL T>100.5F 10/15/17 07:15 11/14/17 07:14 Albuterol/ Ipratropium (Albuterol/ Ipratropium) 3 ml Q4H PRN HHN Shortness of Breath 10/15/17 07:15 10/20/17 07:14 Chlorhexidine Gluconate (Xiomara-Hex 2%) 1 applic DAILY@2000 TOPIC 10/16/17 20:00 11/15/17 19:59 10/17/17 20:52 Clindamycin HCl/ Dextrose 50 ml @ 100 mls/hr Q8HR IV 10/15/17 16:00 10/22/17 15:59 10/18/17 05:26 Clonazepam (KlonoPIN) 1 mg BEDTIME ORAL 10/15/17 21:00 10/22/17 20:59 10/17/17 20:53 Dextrose (Dextrose 50%) 25 ml STAT PRN IV Hypoglycemia 10/17/17 06:45 11/16/17 06:44 Dextrose (Dextrose 50%) 50 ml STAT PRN IV Hypoglycemia 4/26/18 06:45 11/16/17 06:44 Diphenhydramine HCl (Benadryl) 50 mg PRN PRN ORAL Per rx protocol 10/18/17 07:00 11/17/17 06:59 Divalproex Sodium (Depakote Sprinkles) 750 mg TWICE A DAY ORAL 10/15/17 18:00 11/14/17 08:59 10/18/17 08:50 Hydrocortisone (Solu-CORTEF) 100 mg EVERY 8 HOURS IV 10/17/17 22:00 11/16/17 21:59 10/18/17 06:00 Hydromorphone HCl (Dilaudid) 0.5 mg Q4H PRN IM FOR PAIN 10/17/17 23:30 10/24/17 23:29 Insulin Aspart (NovoLOG) EVERY 4 HOURS SUBQ 10/15/17 16:30 11/14/17 16:29 10/18/17 08:55 Insulin Detemir (Levemir) 18 units Q12HR SUBQ 10/18/17 21:00 11/16/17 20:59 Midodrine (Pro-Amatine) 10 mg THREE TIMES A DAY ORAL 10/16/17 13:00 11/15/17 12:59 10/18/17 08:51 Nitroglycerin (Ntg) 0.4 mg Q5MIN X 3 DOSES PRN SL Prn Chest Pain 10/15/17 07:45 11/14/17 07:44 Pantoprazole (Protonix) 40 mg DAILY IVP 10/18/17 10:30 11/17/17 10:29 Piperacillin Sod/ Tazobactam Sod 3.375 gm/Dextrose 110 ml @ 27.5 mls/hr Q12HR@0400,1600 IVPB 10/15/17 16:00 10/22/17 15:59 10/18/17 03:31 Polyethylene Glycol (Miralax) 17 gm DAILYPRN PRN ORAL Constipation 10/15/17 07:15 11/14/17 07:14 Potassium Chloride 40 meq/ Sodium Chloride 570 ml @ 142.5 mls/ hr ONCE ONCE IVPB 10/18/17 11:30 10/18/17 15:29 Prochlorperazine (Compazine) 10 mg Q8HR PRN IVP Nausea & Vomiting 10/17/17 22:45 11/16/17 22:44 Risperidone (RisperDAL) 2 mg BEDTIME ORAL 10/17/17 21:00 11/16/17 20:59 10/17/17 20:53 Sodium Hypochlorite (Dakin's Half Strength) 1 applic DAILY TOPIC 10/16/17 06:00 11/15/17 05:59 10/18/17 08:51 Vancomycin HCl (Vanco rx to dose) 1 ea DAILY PRN MISC . 10/15/17 08:00 11/14/17 07:59 Vancomycin HCl 1 gm/Dextrose 275 ml @ 183.708 mls/hr Q24H IVPB 10/17/17 06:00 10/22/17 05:59 10/18/17 05:27 Max Gerardo MD Oct 18, 2017 10:44
[2017-10-18] MEDS ORDERED: Tubing IV Secondary IV ONE (10:57)
[2017-10-18] MEDS ORDERED: NS 275ml ONE (10:57)
[2017-10-18] MEDS ORDERED: D5NS 1000ml IV ONE (10:57)
[2017-10-18] MEDS ORDERED: Potassium Chloride 40 MEQ in Sodium Chloride 500ML 550 ML IVPB ONE (11:30)
[2017-10-18 12:00] VITALS: BP 78/57
[2017-10-18] MEDS ORDERED: Albuterol/Ipratropium 3ml neb HHN PRN (12:50)
[2017-10-18] MEDS ORDERED: Nitroglycerin Subl 0.4mg tab SL PRN (12:50)
[2017-10-18] MEDS ORDERED: Miralax 17gm pkt ORAL PRN (12:56)
[2017-10-18] MEDS ORDERED: NovoLOG Insulin Flexpen SUBQ SCH (13:00)
[2017-10-18] MEDS ORDERED: Midodrine 10mg tab ORAL SCH (13:00)
[2017-10-18] MEDS: Morphine Sulfate 4mg/ml Inj IVP PRN ×5 (13:15→23:11)
[2017-10-18] MEDS ORDERED: Potassium Chloride 40 MEQ in Sodium Chloride 500ML 550 ML IVPB SCH (13:30)
[2017-10-18] MEDS ORDERED: Clindamycin 900mg 50 ML IV SCH (14:00)
[2017-10-18] MEDS ORDERED: Hydrocortisone 100mg Inj IV SCH (14:00)
--- NOTE | 2017-10-18 15:11 | General Progress Note ---
Assessment/Plan Assessment/Plan schizoaffective encephalopathy decrease Risperdal 2mg qhs cont Klonopin cont Depakote Subjective Date patient seen: Oct 18, 2017 Allergies: Coded Allergies: NO KNOWN DRUG ALLERGIES (Unverified Allergy, Unknown, 11/11/14) Subjective the pt is lethargic and confused Objective Last 24 Hour Vital Signs Date Time Temp Pulse Resp B/P (MAP) Pulse Ox O2 Delivery O2 Flow Rate FiO2 10/18/17 13:45 97.5 10/18/17 13:15 97.5 10/18/17 12:00 98.2 57 20 78/57 94 98.2 10/18/17 08:00 97.5 60 20 76/48 91 Venturi Mask 14.0 50 97.5 10/18/17 08:00 51 10/18/17 07:37 65 18 Venturi Mask 14.0 55 10/18/17 07:37 Venturi Mask 14.0 55 10/18/17 07:37 98 Venturi Mask 14.0 55 10/18/17 04:00 58 10/18/17 04:00 97.2 50 23 114/86 94 Venturi Mask 14.0 50 97.2 10/18/17 00:00 97.3 50 22 85/44 98 Venturi Mask 14.0 50 97.3 10/18/17 00:00 48 10/17/17 20:00 97.3 50 23 88/45 99 Venturi Mask 14.0 50 97.3 10/17/17 20:00 48 10/17/17 19:30 60 20 Venturi Mask 14.0 55 10/17/17 19:30 98 Venturi Mask 14.0 55 10/17/17 19:30 Venturi Mask 14.0 55 10/17/17 16:00 58 10/17/17 16:00 96.8 56 16 75/44 100 Venturi Mask 14.0 55 96.8 Intake and Output 10/17/17 10/18/17 19:00 07:00 Intake Total 3040.0423 ml 1488.2917 ml Output Total 800 ml 1000 ml Balance 2240.0423 ml 488.2917 ml IV Total 2790.0423 ml 1098.2917 ml Tube Feeding 150 ml 360 ml Other 100 ml 30 ml Output Urine Total 800 ml 1000 ml # Bowel Movements 1 Laboratory Tests 10/18/17 03:00: White Blood Count 3.9#L, Red Blood Count 3.01L, Hemoglobin 8.7L, Hematocrit 25.7L, Mean Corpuscular Volume 85, Mean Corpuscular Hemoglobin 29.1, Mean Corpuscular Hemoglobin Concent 34.1, Red Cell Distribution Width 18.5H, Platelet Count 9*L, Mean Platelet Volume 10.9H, Neutrophils (%) (Auto) , Lymphocytes (%) (Auto) , Monocytes (%) (Auto) , Eosinophils (%) (Auto) , Basophils (%) (Auto) , Differential Total Cells Counted 100, Neutrophils % ( Manual) 83H, Lymphocytes % (Manual) 4L, Monocytes % (Manual) 2, Eosinophils % ( Manual) 0, Basophils % (Manual) 0, Band Neutrophils 11H, Platelet Estimate DecreasedL, Platelet Morphology , Giant Platelets Occasional, Hypochromasia 1+, Anisocytosis 1+, Reticulocyte Count 0.7, Haptoglobin [Pending], Prothrombin Time 16.4H, Prothromb Time International Ratio 1.6H, Fibrinogen 325, Sodium Level 155H, Potassium Level 3.1L, Chloride Level 122H, Carbon Dioxide Level 18L , Anion Gap 15, Blood Urea Nitrogen 76H, Creatinine 0.7, Estimat Glomerular Filtration Rate > 60, Glucose Level 174H, Calcium Level 6.1L, Phosphorus Level 2.4L, Magnesium Level 2.1, Iron Level 14L, Total Iron Binding Capacity 118L, Percent Iron Saturation 12L, Unsaturated Iron Binding 104L, Ferritin 1637H, Total Bilirubin 1.0, Aspartate Amino Transf (AST/SGOT) 107H, Alanine Aminotransferase (ALT/SGPT) 32, Alkaline Phosphatase 129H, Lactate Dehydrogenase 327H, Total Protein 5.3L, Albumin 1.5L, Globulin 3.8, Albumin/ Globulin Ratio 0.4L, Heparin-PF4 Antibody Screen [Pending], Hepatitis A IgM Antibody [Pending], Hepatitis B Surface Antigen [Pending], Hepatitis B Core IgM Antibody [Pending], Hepatitis C Antibody [Pending], HIV (1&2) Antibody Rapid Negative Height (Feet): 4 Weight (Pounds): 110 General Appearance: no apparent distress, lethargic - eyes open, confused Evelia Vail M.D. Oct 18, 2017 15:11
[2017-10-18 16:00] VITALS: BP 81/45
[2017-10-18] MEDS ORDERED: Piperacillin/Tazobactam 3.375 GM in D5W 110 ML IVPB SCH (16:00)
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
[2017-10-18] MEDS ORDERED: Depakote 125mg Sprinkles ORAL SCH (18:00)
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
[2017-10-18 20:00] VITALS: BP 83/51
[2017-10-18] MEDS ORDERED: Dyna-Hex 2% Top Sol 2oz TOPIC SCH (20:00)
[2017-10-18] MEDS ORDERED: Levemir Flexpen SUBQ SCH ×2 (21:00)
[2017-10-19] VITALS: BP 70/43
[2017-10-19 04:00] VITALS: BP 75/45
[2017-10-19] MEDS ORDERED: Vancomycin 1 GM in D5W 275 ML IVPB SCH (06:00)
--- NOTE | 2017-10-19 06:36 | General Progress Note ---
Assessment/Plan Problem List: (1) Diabetes mellitus out of control ICD Codes: E11.65 - Type 2 diabetes mellitus with hyperglycemia SNOMED: 87797356, 052159325 (2) Cardiomyopathy ICD Codes: I42.9 - Cardiomyopathy, unspecified SNOMED: 30594273 (3) Altered mental state ICD Codes: R41.82 - Altered mental status, unspecified SNOMED: 487185001 (4) Schizophrenia ICD Codes: F20.9 - Schizophrenia, unspecified SNOMED: 66350655 (5) S/P AKA (above knee amputation) bilateral ICD Codes: Z89.611 - Acquired absence of right leg above knee; Z89.612 - Acquired absence of left leg above knee SNOMED: 85553571, 401574072 Assessment/Plan comfort care noted I will sign off Subjective ROS Limited/Unobtainable: Yes Allergies: Coded Allergies: NO KNOWN DRUG ALLERGIES (Unverified Allergy, Unknown, 11/11/14) Subjective comfort care noted Objective Last 24 Hour Vital Signs Date Time Temp Pulse Resp B/P (MAP) Pulse Ox O2 Delivery O2 Flow Rate FiO2 10/19/17 04:00 97.0 54 17 75/45 100 97.0 10/19/17 04:00 Venturi Mask 14.0 55 10/19/17 00:00 Venturi Mask 14.0 55 10/19/17 00:00 97.0 54 17 70/43 95 97.0 10/18/17 20:00 97.0 58 17 83/51 93 97.0 10/18/17 20:00 Venturi Mask 14.0 55 10/18/17 19:04 98.2 10/18/17 18:55 66 18 Venturi Mask 14.0 55 10/18/17 18:55 97 Venturi Mask 14.0 55 10/18/17 18:55 Venturi Mask 14.0 55 10/18/17 17:31 98.2 10/18/17 17:01 98.2 10/18/17 16:00 98.2 51 15 81/45 92 98.2 10/18/17 13:15 97.5 10/18/17 12:00 98.2 57 20 78/57 94 98.2 10/18/17 08:00 97.5 60 20 76/48 91 Venturi Mask 14.0 50 97.5 10/18/17 08:00 51 10/18/17 07:37 65 18 Venturi Mask 14.0 55 10/18/17 07:37 Venturi Mask 14.0 55 10/18/17 07:37 98 Venturi Mask 14.0 55 Intake and Output 10/18/17 10/19/17 19:00 07:00 Intake Total 380.833 ml Output Total 350 ml Balance 30.833 ml Free Water 50 ml IV Total 190.833 ml Tube Feeding 90 ml Other 50 ml Output Urine Total 350 ml Height (Feet): 4 Weight (Pounds): 110 General Appearance: lethargic Neck: normal alignment Cardiovascular: normal rate Respiratory/Chest: decreased breath sounds Objective Current Medications Medications (Trade) Dose Ordered Sig/Stevan Route PRN Reason Start Time Stop Time Status Last Admin Dose Admin Dextrose (Dextrose 50%) 25 ml STAT PRN IV Hypoglycemia BS 60-69mg/dl 10/18/17 12:48 11/17/17 12:47 Dextrose (Dextrose 50%) 50 ml STAT PRN IV Hypoglycemia BS less than 60mg 10/18/17 12:48 11/17/17 12:47 Diphenhydramine HCl (Benadryl) 50 mg PRN PRN ORAL PREMEDICATION FOR BLOOD TRANSF 10/18/17 12:49 11/17/17 12:48 Hydromorphone HCl (Dilaudid) 0.5 mg Q4H PRN IM FOR PAIN 10/18/17 12:57 10/24/17 12:56 Morphine Sulfate (Morphine Sulfate) 4 mg EVERY HOUR PRN IVP dyspnea 10/18/17 12:57 10/25/17 12:56 10/18/17 23:11 BHARTI ZUNIGA Oct 19, 2017 06:36
[2017-10-19 08:00] VITALS: BP 74/44
[2017-10-19 08:08] LABS: HEMOGLOBIN 9.4 G/DL (14.2-18.0); MEAN CORPUSCULAR VOLUME 84 FL (80-99); RED CELL DISTRIBUTION WIDTH 18.7 % (11.6-14.8); WHITE BLOOD COUNT 2.9 K/UL (4.8-10.8)
[2017-10-19 08:19] LABS: PLATELET COUNT 7 K/UL (150-450)
[2017-10-19 08:33] LABS: ALANINE AMINOTRANSFERASE 46 U/L (12-78); ALBUMIN 1.3 G/DL (3.4-5.0); ALBUMIN/GLOBULIN RATIO 0.3 (1.0-2.7); ALKALINE PHOSPHATASE 142 U/L (46-116); ANION GAP 11 mmol/L (5-15); ASPARTATE AMINO TRANSFERASE 307 U/L (15-37); BLOOD UREA NITROGEN 76 mg/dL (7-18); CALCIUM 6.3 MG/DL (8.5-10.1); CARBON DIOXIDE 21 MMOL/L (21-32); CHLORIDE 123 MMOL/L (98-107); CREATININE 0.7 MG/DL (0.55-1.30); POTASSIUM 3.3 MMOL/L (3.5-5.1); SODIUM 155 MMOL/L (136-145)
[2017-10-19] MEDS ORDERED: Pantoprazole Inj IVP SCH (09:00)
[2017-10-19] MEDS ORDERED: Dakin's 0.25% (Half Strength) 16oz TOPIC SCH (09:00)
--- NOTE | 2017-10-19 09:44 | Nephrology Progress Note ---
Assessment/Plan Problem List: (1) Septic shock (2) ARF (acute renal failure) (3) Hyperosmolar non-ketotic state in patient with type 2 diabetes mellitus Assessment Renal Failure- Sepsis Leukocytosis- DM OOC Elevated CPK , Rhabdo Hypotension- Shock Anemia HypoAlbuminemia Plan on comfort care- Hypotensive- pre terminal- will sign off Subjective ROS Limited/Unobtainable: Yes Objective Objective Last 24 Hour Vital Signs Date Time Temp Pulse Resp B/P (MAP) Pulse Ox O2 Delivery O2 Flow Rate FiO2 10/19/17 08:26 68 18 Venturi Mask 14.0 55 10/19/17 08:26 98 Venturi Mask 14.0 55 10/19/17 08:26 Venturi Mask 14.0 55 10/19/17 04:00 97.0 54 17 75/45 100 97.0 10/19/17 04:00 Venturi Mask 14.0 55 10/19/17 00:00 Venturi Mask 14.0 55 10/19/17 00:00 97.0 54 17 70/43 95 97.0 10/18/17 20:00 97.0 58 17 83/51 93 97.0 10/18/17 20:00 Venturi Mask 14.0 55 10/18/17 19:04 98.2 10/18/17 18:55 66 18 Venturi Mask 14.0 55 10/18/17 18:55 97 Venturi Mask 14.0 55 10/18/17 18:55 Venturi Mask 14.0 55 10/18/17 17:31 98.2 10/18/17 17:01 98.2 10/18/17 16:00 98.2 51 15 81/45 92 98.2 10/18/17 13:15 97.5 10/18/17 12:00 98.2 57 20 78/57 94 98.2 Intake and Output 10/18/17 10/19/17 19:00 07:00 Intake Total 380.833 ml Output Total 350 ml 620 ml Balance 30.833 ml -620 ml Free Water 50 ml IV Total 190.833 ml Tube Feeding 90 ml Other 50 ml Output Urine Total 350 ml 620 ml Laboratory Tests 10/19/17 06:00: White Blood Count 2.9L, Red Blood Count 3.20L, Hemoglobin 9.4L, Hematocrit 27.0L , Mean Corpuscular Volume 84, Mean Corpuscular Hemoglobin 29.3, Mean Corpuscular Hemoglobin Concent 34.7, Red Cell Distribution Width 18.7H, Platelet Count 7*L, Mean Platelet Volume 8.2, Neutrophils (%) (Auto) , Lymphocytes (%) (Auto) , Monocytes (%) (Auto) , Eosinophils (%) (Auto) , Basophils (%) (Auto) , Neutrophils % (Manual) [Pending], Lymphocytes % (Manual) [Pending], Platelet Estimate [Pending], Platelet Morphology [Pending], Sodium Level 155H, Potassium Level 3.3L, Chloride Level 123H, Carbon Dioxide Level 21, Anion Gap 11, Blood Urea Nitrogen 76H, Creatinine 0.7, Estimat Glomerular Filtration Rate > 60, Glucose Level 21#*L, Calcium Level 6.3L, Phosphorus Level 3.0, Magnesium Level 2.2, Total Bilirubin 1.0, Aspartate Amino Transf (AST/SGOT ) 307H, Alanine Aminotransferase (ALT/SGPT) 46, Alkaline Phosphatase 142H, C- Reactive Protein, Quantitative 16.1H, Pro-B-Type Natriuretic Peptide 20982W, Total Protein 5.1L, Albumin 1.3L, Globulin 3.8, Albumin/Globulin Ratio 0.3L Height (Feet): 4 Weight (Pounds): 110 General Appearance: no apparent distress, lethargic JAKY JOSEPH Oct 19, 2017 09:44
[2017-10-19 12:00] VITALS: BP 71/45
--- NOTE | 2017-10-19 12:43 | General Surgery Progress Note ---
General Surgery-Progress Note Subjective Additional Comments wounds improving since debridement. foul smelling improving. necrotic infected gangrenous tissue improved. medically still very sick. plt 9. leukopenia Objective Last 24 Hour Vital Signs Date Time Temp Pulse Resp B/P (MAP) Pulse Ox O2 Delivery O2 Flow Rate FiO2 10/19/17 12:00 95.4 56 16 71/45 56 Venturi Mask 14.0 55 95.4 10/19/17 08:26 68 18 Venturi Mask 14.0 55 10/19/17 08:26 98 Venturi Mask 14.0 55 10/19/17 08:26 Venturi Mask 14.0 55 10/19/17 08:00 95.8 55 16 74/44 89 Venturi Mask 14.0 55 95.8 10/19/17 04:00 97.0 54 17 75/45 100 97.0 10/19/17 04:00 Venturi Mask 14.0 55 10/19/17 00:00 Venturi Mask 14.0 55 10/19/17 00:00 97.0 54 17 70/43 95 97.0 10/18/17 20:00 97.0 58 17 83/51 93 97.0 10/18/17 20:00 Venturi Mask 14.0 55 10/18/17 19:04 98.2 10/18/17 18:55 66 18 Venturi Mask 14.0 55 10/18/17 18:55 97 Venturi Mask 14.0 55 10/18/17 18:55 Venturi Mask 14.0 55 10/18/17 17:31 98.2 10/18/17 17:01 98.2 10/18/17 16:00 98.2 51 15 81/45 92 98.2 10/18/17 13:15 97.5 I&O Intake and Output 10/18/17 10/19/17 19:00 07:00 Intake Total 380.833 ml Output Total 350 ml 620 ml Balance 30.833 ml -620 ml Free Water 50 ml IV Total 190.833 ml Tube Feeding 90 ml Other 50 ml Output Urine Total 350 ml 620 ml Dressing: saturated Wound: other - most of necrotic infected tissue debrided. wound large defect on sacral/buttock area but improved as compared to prior Drains: none Cardiovascular: RSR Respiratory: decreased breath sounds Abdomen: soft, flat Extremities: no cyanosis Laboratory Tests Test 10/19/17 06:00 White Blood Count 2.9 K/UL (4.8-10.8) L Red Blood Count 3.20 M/UL (4.70-6.10) L Hemoglobin 9.4 G/DL (14.2-18.0) L Hematocrit 27.0 % (42.0-52.0) L Mean Corpuscular Volume 84 FL (80-99) Mean Corpuscular Hemoglobin 29.3 PG (27.0-31.0) Mean Corpuscular Hemoglobin Concent 34.7 G/DL (32.0-36.0) Red Cell Distribution Width 18.7 % (11.6-14.8) H Platelet Count 7 K/UL (150-450) *L Mean Platelet Volume 8.2 FL (6.5-10.1) Neutrophils (%) (Auto) % (45.0-75.0) Lymphocytes (%) (Auto) % (20.0-45.0) Monocytes (%) (Auto) % (1.0-10.0) Eosinophils (%) (Auto) % (0.0-3.0) Basophils (%) (Auto) % (0.0-2.0) Differential Total Cells Counted 100 Neutrophils % (Manual) 85 % (45-75) H Lymphocytes % (Manual) 6 % (20-45) L Monocytes % (Manual) 1 % (1-10) Eosinophils % (Manual) 0 % (0-3) Basophils % (Manual) 0 % (0-2) Band Neutrophils 8 % (0-8) Nucleated Red Blood Cells 8 /100 WBC Platelet Estimate Decreased L Platelet Morphology Normal Hypochromasia 2+ Anisocytosis 2+ Spherocytes 1+ Sodium Level 155 MMOL/L (136-145) H Potassium Level 3.3 MMOL/L (3.5-5.1) L Chloride Level 123 MMOL/L (98-107) H Carbon Dioxide Level 21 MMOL/L (21-32) Anion Gap 11 mmol/L (5-15) Blood Urea Nitrogen 76 mg/dL (7-18) H Creatinine 0.7 MG/DL (0.55-1.30) Estimat Glomerular Filtration Rate > 60 mL/min (>60) Glucose Level 21 MG/DL (74-106) #*L Calcium Level 6.3 MG/DL (8.5-10.1) L Phosphorus Level 3.0 MG/DL (2.5-4.9) Magnesium Level 2.2 MG/DL (1.8-2.4) Total Bilirubin 1.0 MG/DL (0.2-1.0) Aspartate Amino Transf (AST/SGOT) 307 U/L (15-37) H Alanine Aminotransferase (ALT/SGPT) 46 U/L (12-78) Alkaline Phosphatase 142 U/L (46-116) H C-Reactive Protein, Quantitative 16.1 mg/dL (0.00-0.90) H Pro-B-Type Natriuretic Peptide 77325 pg/mL (0-125) H Total Protein 5.1 G/DL (6.4-8.2) L Albumin 1.3 G/DL (3.4-5.0) L Globulin 3.8 g/dL Albumin/Globulin Ratio 0.3 (1.0-2.7) L Plan Problems: (1) Decubital ulcer Assessment & Plan: stage 4 decubitus ulcer on sacral area / bilateral buttock. very infected with gross stool noted initially. absolutely required debridement which was performed a few days ago. wound large and will need LOTS of care over a long period of time. medically patient very ill with poor prognosis. cont with dressing changes as ordered TID will monitor wound. Ministerio Jay Oct 19, 2017 12:43
[2017-10-19 16:02] VITALS: BP 70/46
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
--- NOTE | 2017-10-19 22:17 | General Progress Note ---
Assessment/Plan Assessment/Plan IMPRESSION: 1. Thrombocytopenia, secondary to alcoholic liver cirrhosis. 2. Anemia of chronic disease. 3. Anemia of kidney disease. 4. Anemia of iron deficiency. 5. Decreased hemoglobin and hematocrit, rule out GI bleed. 6. Leukocytosis with left shift. 7. History of leukemoid reaction. 8. History of alcohol abuse. 9. Alcoholic liver cirrhosis. 10. Diabetes mellitus. 11. Peripheral vascular disease. 12. Status post bilateral [id number] amputation. 13. Hypertension. 14. CHF. 15. Sepsis. 16. Septic shock. 17. Hyperosmolar nonketotic state. 18. Diabetes mellitus type 2. 19. Toxic metabolic encephalopathy. 20. Acute renal failure. 21. Decubitus. 22. Schizophrenia. 23. Malnutrition. 24. Weight loss. 25. Failure to thrive. RECOMMENDATIONS: 1. Watch count. 2. Watch coagulopathy. 3. PRBC transfusion p.r.n. basis. 4. Platelet transfusion p.r.n. basis. 5. Vitamin K. 6. Antibiotic IV. 7. Gastroenterology evaluation. 8. Infectious Disease evaluation and followup. 9. Nephrology followup. 10. Cardiology followup. 11. Skin care. 12. Wound care. 13. Nutrition. 14. Discussed with staff. 15. Close followup. Subjective Date patient seen: Oct 18, 2017 Constitutional: Denies: no symptoms, chills, diaphoresis, fever, malaise, weakness, other HEENT: Denies: no symptoms, eye pain, blurred vision, tearing, double vision, ear pain, ear discharge, nose pain, nose congestion, throat pain, throat swelling, mouth pain, mouth swelling, other Cardiovascular: Denies: no symptoms, chest pain, edema, irregular heart rate, lightheadedness, palpitations, syncope, other Respiratory: Denies: no symptoms, cough, orthopnea, shortness of breath, SOB with excertion, SOB at rest, sputum, stridor, wheezing, other Gastrointestinal/Abdominal: Denies: no symptoms, abdomen distended, abdominal pain, black stools, tarry stools, blood in stool, constipated, diarrhea, difficulty swallowing, nausea, poor appetite, poor fluid intake, rectal bleeding , vomiting, other Genitourinary: Denies: no symptoms, burning, discharge, frequency, flank pain, hematuria, incontinence, pain, urgency, other Neurologic/Psychiatric: Denies: no symptoms, anxiety, depressed, emotional problems, headache, numbness, paresthesia, pre-existing deficit, seizure, tingling, tremors, weakness, other Hematologic/Lymphatic: Reports: anemia, other - thrombocytopenia Allergies: Coded Allergies: NO KNOWN DRUG ALLERGIES (Unverified Allergy, Unknown, 11/11/14) Subjective Platelets critical level. Comfort care. On tube feedings. Objective Last 24 Hour Vital Signs Date Time Temp Pulse Resp B/P (MAP) Pulse Ox O2 Delivery O2 Flow Rate FiO2 10/19/17 16:02 95.4 16 16 70/46 92 Venturi Mask 14.0 55 95.4 10/19/17 12:00 95.4 56 16 71/45 56 Venturi Mask 14.0 55 95.4 10/19/17 08:26 68 18 Venturi Mask 14.0 55 10/19/17 08:26 98 Venturi Mask 14.0 55 10/19/17 08:26 Venturi Mask 14.0 55 10/19/17 08:00 95.8 55 16 74/44 89 Venturi Mask 14.0 55 95.8 10/19/17 04:00 97.0 54 17 75/45 100 97.0 10/19/17 04:00 Venturi Mask 14.0 55 10/19/17 00:00 Venturi Mask 14.0 55 10/19/17 00:00 97.0 54 17 70/43 95 97.0 Intake and Output 10/18/17 10/19/17 19:00 07:00 Intake Total 380.833 ml Output Total 350 ml 620 ml Balance 30.833 ml -620 ml Free Water 50 ml IV Total 190.833 ml Tube Feeding 90 ml Other 50 ml Output Urine Total 350 ml 620 ml Laboratory Tests 10/19/17 06:00: White Blood Count 2.9L, Red Blood Count 3.20L, Hemoglobin 9.4L, Hematocrit 27.0L , Mean Corpuscular Volume 84, Mean Corpuscular Hemoglobin 29.3, Mean Corpuscular Hemoglobin Concent 34.7, Red Cell Distribution Width 18.7H, Platelet Count 7*L, Mean Platelet Volume 8.2, Neutrophils (%) (Auto) , Lymphocytes (%) (Auto) , Monocytes (%) (Auto) , Eosinophils (%) (Auto) , Basophils (%) (Auto) , Differential Total Cells Counted 100, Neutrophils % ( Manual) 85H, Lymphocytes % (Manual) 6L, Monocytes % (Manual) 1, Eosinophils % ( Manual) 0, Basophils % (Manual) 0, Band Neutrophils 8, Nucleated Red Blood Cells 8, Platelet Estimate DecreasedL, Platelet Morphology Normal, Hypochromasia 2+, Anisocytosis 2+, Spherocytes 1+, Sodium Level 155H, Potassium Level 3.3L, Chloride Level 123H, Carbon Dioxide Level 21, Anion Gap 11, Blood Urea Nitrogen 76H, Creatinine 0.7, Estimat Glomerular Filtration Rate > 60, Glucose Level 21#*L, Calcium Level 6.3L, Phosphorus Level 3.0, Magnesium Level 2.2, Total Bilirubin 1.0, Aspartate Amino Transf (AST/SGOT) 307H, Alanine Aminotransferase (ALT/SGPT) 46, Alkaline Phosphatase 142H, C-Reactive Protein, Quantitative 16.1H, Pro-B-Type Natriuretic Peptide 15440L, Total Protein 5.1L, Albumin 1.3L, Globulin 3.8, Albumin/Globulin Ratio 0.3L Height (Feet): 4 Weight (Pounds): 110 General Appearance: lethargic Respiratory/Chest: decreased breath sounds Edema: trace edema Isaiah Adams MD Oct 19, 2017 22:17
--- NOTE | 2017-10-19 22:29 | Pulmonology Progress Note ---
Assessment/Plan Problems: (1) Septic shock (2) Hyperosmolar non-ketotic state in patient with type 2 diabetes mellitus (3) Toxic metabolic encephalopathy (4) ARF (acute renal failure) (5) Decubital ulcer (6) S/P AKA (above knee amputation) bilateral (7) Schizophrenia Assessment/Plan dc iv fluid bun decreasing cultures: + blood cultures Blood cultures are positive Blood sugar much better wound care NG tube feeding check electrolytes s/p vitamin K. pt will benefit from comfort care Subjective Allergies: Coded Allergies: NO KNOWN DRUG ALLERGIES (Unverified Allergy, Unknown, 11/11/14) Objective Last 24 Hour Vital Signs Date Time Temp Pulse Resp B/P (MAP) Pulse Ox O2 Delivery O2 Flow Rate FiO2 10/19/17 16:02 95.4 16 16 70/46 92 Venturi Mask 14.0 55 95.4 10/19/17 12:00 95.4 56 16 71/45 56 Venturi Mask 14.0 55 95.4 10/19/17 08:26 68 18 Venturi Mask 14.0 55 10/19/17 08:26 98 Venturi Mask 14.0 55 10/19/17 08:26 Venturi Mask 14.0 55 10/19/17 08:00 95.8 55 16 74/44 89 Venturi Mask 14.0 55 95.8 10/19/17 04:00 97.0 54 17 75/45 100 97.0 10/19/17 04:00 Venturi Mask 14.0 55 10/19/17 00:00 Venturi Mask 14.0 55 10/19/17 00:00 97.0 54 17 70/43 95 97.0 Intake and Output 10/18/17 10/19/17 19:00 07:00 Intake Total 380.833 ml Output Total 350 ml 620 ml Balance 30.833 ml -620 ml Free Water 50 ml IV Total 190.833 ml Tube Feeding 90 ml Other 50 ml Output Urine Total 350 ml 620 ml Laboratory Tests 10/19/17 06:00: White Blood Count 2.9L, Red Blood Count 3.20L, Hemoglobin 9.4L, Hematocrit 27.0L , Mean Corpuscular Volume 84, Mean Corpuscular Hemoglobin 29.3, Mean Corpuscular Hemoglobin Concent 34.7, Red Cell Distribution Width 18.7H, Platelet Count 7*L, Mean Platelet Volume 8.2, Neutrophils (%) (Auto) , Lymphocytes (%) (Auto) , Monocytes (%) (Auto) , Eosinophils (%) (Auto) , Basophils (%) (Auto) , Differential Total Cells Counted 100, Neutrophils % ( Manual) 85H, Lymphocytes % (Manual) 6L, Monocytes % (Manual) 1, Eosinophils % ( Manual) 0, Basophils % (Manual) 0, Band Neutrophils 8, Nucleated Red Blood Cells 8, Platelet Estimate DecreasedL, Platelet Morphology Normal, Hypochromasia 2+, Anisocytosis 2+, Spherocytes 1+, Sodium Level 155H, Potassium Level 3.3L, Chloride Level 123H, Carbon Dioxide Level 21, Anion Gap 11, Blood Urea Nitrogen 76H, Creatinine 0.7, Estimat Glomerular Filtration Rate > 60, Glucose Level 21#*L, Calcium Level 6.3L, Phosphorus Level 3.0, Magnesium Level 2.2, Total Bilirubin 1.0, Aspartate Amino Transf (AST/SGOT) 307H, Alanine Aminotransferase (ALT/SGPT) 46, Alkaline Phosphatase 142H, C-Reactive Protein, Quantitative 16.1H, Pro-B-Type Natriuretic Peptide 81200V, Total Protein 5.1L, Albumin 1.3L, Globulin 3.8, Albumin/Globulin Ratio 0.3L Current Medications Medications (Trade) Dose Ordered Sig/Stevan Route PRN Reason Start Time Stop Time Status Last Admin Dose Admin Dextrose (Dextrose 50%) 25 ml STAT PRN IV Hypoglycemia BS 60-69mg/dl 10/18/17 12:48 11/17/17 12:47 Dextrose (Dextrose 50%) 50 ml STAT PRN IV Hypoglycemia BS less than 60mg 10/18/17 12:48 11/17/17 12:47 Diphenhydramine HCl (Benadryl) 50 mg PRN PRN ORAL PREMEDICATION FOR BLOOD TRANSF 10/18/17 12:49 11/17/17 12:48 Hydromorphone HCl (Dilaudid) 0.5 mg Q4H PRN IM FOR PAIN 10/18/17 12:57 10/24/17 12:56 Morphine Sulfate (Morphine Sulfate) 4 mg EVERY HOUR PRN IVP dyspnea 10/18/17 12:57 10/25/17 12:56 10/18/17 23:11 Max Gerardo MD Oct 19, 2017 22:29
[2017-10-19] MEDS ORDERED: Tubing IV Secondary IV ONE (22:44)
[2017-10-19] MEDS ORDERED: NS 275ml ONE (22:44)
[2017-10-19] MEDS ORDERED: 1/2 NS 1000ml IV ONE (22:44)
--- NOTE | 2017-10-20 23:31 | General Progress Note ---
Assessment/Plan Assessment/Plan IMPRESSION: 1. Thrombocytopenia, secondary to alcoholic liver cirrhosis. 2. Anemia of chronic disease. 3. Anemia of kidney disease. 4. Anemia of iron deficiency. 5. Decreased hemoglobin and hematocrit, rule out GI bleed. 6. Leukocytosis with left shift. 7. History of leukemoid reaction. 8. History of alcohol abuse. 9. Alcoholic liver cirrhosis. 10. Diabetes mellitus. 11. Peripheral vascular disease. 12. Status post bilateral [id number]-dft-[id number] amputation. 13. Hypertension. 14. CHF. 15. Sepsis. 16. Septic shock. 17. Hyperosmolar nonketotic state. 18. Diabetes mellitus type 2. 19. Toxic metabolic encephalopathy. 20. Acute renal failure. 21. Decubitus. 22. Schizophrenia. 23. Malnutrition. 24. Weight loss. 25. Failure to thrive. RECOMMENDATIONS: 1. Watch count. 2. Watch coagulopathy. 3. PRBC transfusion p.r.n. basis. 4. Platelet transfusion p.r.n. basis. 5. Vitamin K. 6. Antibiotic IV. 7. Gastroenterology evaluation. 8. Infectious Disease evaluation and followup. 9. Nephrology followup. 10. Cardiology followup. 11. Skin care. 12. Wound care. 13. Nutrition. 14. Discussed with staff. 15. Close followup. Comfort care. Subjective Date patient seen: Oct 19, 2017 Constitutional: Denies: no symptoms, chills, diaphoresis, fever, malaise, weakness, other HEENT: Denies: no symptoms, eye pain, blurred vision, tearing, double vision, ear pain, ear discharge, nose pain, nose congestion, throat pain, throat swelling, mouth pain, mouth swelling, other Cardiovascular: Denies: no symptoms, chest pain, edema, irregular heart rate, lightheadedness, palpitations, syncope, other Respiratory: Denies: no symptoms, cough, orthopnea, shortness of breath, SOB with excertion, SOB at rest, sputum, stridor, wheezing, other Gastrointestinal/Abdominal: Denies: no symptoms, abdomen distended, abdominal pain, black stools, tarry stools, blood in stool, constipated, diarrhea, difficulty swallowing, nausea, poor appetite, poor fluid intake, rectal bleeding , vomiting, other Genitourinary: Denies: no symptoms, burning, discharge, frequency, flank pain, hematuria, incontinence, pain, urgency, other Neurologic/Psychiatric: Denies: no symptoms, anxiety, depressed, emotional problems, headache, numbness, paresthesia, pre-existing deficit, seizure, tingling, tremors, weakness, other Endocrine: Denies: no symptoms, excessive sweating, flushing, intolerance to cold, intolerance to heat, increased hunger, increased thirst, increased urine, unexplained weight gain, unexplained weight loss, other Allergies: Coded Allergies: NO KNOWN DRUG ALLERGIES (Unverified Allergy, Unknown, 11/11/14) Subjective Platelets critical level. Comfort care. Objective Intake and Output 10/19/17 10/20/17 19:00 07:00 Output Total 100 ml Balance -100 ml Output Urine Total 100 ml Height (Feet): 4 Weight (Pounds): 110 General Appearance: lethargic Respiratory/Chest: decreased breath sounds Isaiah Adams MD Oct 20, 2017 23:31
--- NOTE | 2017-10-21 08:32 | Discharge Summary ---
Discharge Summary Hospital Course Date of Admission Oct 15, 2017 at 01:54 Date of Discharge Oct 19, 2017 at 22:15 Admitting Diagnosis septic shock. infected ulcer HPI Eugenio Crespo is a 72 year old male who was admitted on Oct 15, 2017 at 01:54 for Septic Shock,Infected Ulcer Hospital Course summary #[id number] Discharge Discharge Disposition Patient Discharge Instructions Discharge Instructions Special Instructions I have been assigned to complete a D/C Summary on this account. I was not involved in the patient management Megan Delgado NP ([facility]) Oct 21, 2017 08:32
--- NOTE | 2017-10-21 15:38 | General Progress Note ---
Assessment/Plan Assessment/Plan schizoaffective encephalopathy decrease Risperdal 2mg qhs cont Klonopin cont Depakote Subjective Date patient seen: Oct 19, 2017 Neurologic/Psychiatric: Reports: anxiety, depressed Allergies: Coded Allergies: NO KNOWN DRUG ALLERGIES (Unverified Allergy, Unknown, 11/11/14) Subjective the pt is lethargic and confused Objective Height (Feet): 4 Weight (Pounds): 110 General Appearance: no apparent distress, lethargic, confused Evelia Vail M.D. Oct 21, 2017 15:38
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
== END 2017-10-19 22:15 | disposition expired | DRG 720 ==
LOC: EDBD 23:59 → EMR 10-15 00:25 → 2E 10-15 01:54 → EDBEDREQ 10-15 02:28 → 2W 10-15 03:14 → 4E 10-18 11:45
PROC: 0H96XZZ Drainage of Back Skin, External Approach (ICD-10-PCS; 2017-10-15)
PROC: 06HM33Z Insertion of Infusion Device into Right Femoral Vein, Percutaneous Approach (ICD-10-PCS; 2017-10-15)
PROC: 0JB70ZZ Excision of Back Subcutaneous Tissue and Fascia, Open Approach (ICD-10-PCS; principal; 2017-10-16)
DX: A41.9 Sepsis, unspecified organism (principal); N17.0 Acute kidney failure with tubular necrosis; R65.21 Severe sepsis with septic shock; E11.00 Type 2 diabetes mellitus with hyperosmolarity without nonketotic hyperglycemic-hyperosmolar coma (NKHHC); L89.154 Pressure ulcer of sacral region, stage 4; G92 Toxic encephalopathy; E46 Unspecified protein-calorie malnutrition; I96 Gangrene, not elsewhere classified; E87.0 Hyperosmolality and hypernatremia; I11.0 Hypertensive heart disease with heart failure; I50.9 Heart failure, unspecified; I42.9 Cardiomyopathy, unspecified; Z89.611 Acquired absence of right leg above knee; F20.9 Schizophrenia, unspecified; Z99.3 Dependence on wheelchair; Z89.612 Acquired absence of left leg above knee; Z59.0 Homelessness; F10.10 Alcohol abuse, uncomplicated; Z91.19 Patient's noncompliance with other medical treatment and regimen; L03.312 Cellulitis of back [any part except buttock and flank]; M86.9 Osteomyelitis, unspecified; Z74.01 Bed confinement status; E11.65 Type 2 diabetes mellitus with hyperglycemia; F25.9 Schizoaffective disorder, unspecified; R62.7 Adult failure to thrive; Z68.33 Body mass index [BMI] 33.0-33.9, adult; I73.9 Peripheral vascular disease, unspecified; D63.1 Anemia in chronic kidney disease; I13.0 Hypertensive heart and chronic kidney disease with heart failure and stage 1 through stage 4 chronic kidney disease, or unspecified chronic kidney disease; N18.9 Chronic kidney disease, unspecified; E11.22 Type 2 diabetes mellitus with diabetic chronic kidney disease; I27.20 Pulmonary hypertension, unspecified; D69.6 Thrombocytopenia, unspecified; Z66 Do not resuscitate; Z51.5 Encounter for palliative care
CPT/HCPCS: 10060; 36415; 71045; 74018; 80053; 80061; 80202; 81001; 81003; 82270; 82533; 82550; 82553; 82607; 82728; 82746; 82962; 83010; 83540; 83550; 83605; 83615; 83735; 83880; 84100; 84133; 84300; 84443; 84484; 84550; 85007; 85025; 85044; 85060; 85384; 85610; 85651; 85730; 86140; 86703; 86705; 86709; 86710; 86803; 86850; 86900; 86901; 87040; 87070; 87081; 87086; 87181; 87205; 87340; 89050; 93005; 94664; 94760; 99291; J1815; S0077; S5561